=== PATIENT | male | born 1955 | race Caucasian/White ===

== ENCOUNTER → 2016-10-23 | Outpatient (CLI) | payer OTHER ==
[~2016-10-23] MED LIST: ADVIN50/60 INH; ASPCH81X PO; ATOR10TA82 PO; FLUP2.5T PO; GABA-113 PO; INSDGI SC; LINA1TAB PO; LISI-725 PO; METF-383 PO; METO25TA3 PO; NTRGSL/4 UT; NVLGI SC; PRLSR20 PO; SERT-234 PO
[2016-10-23 13:24] LABS: ALT/SGPT 27 U/L (12-78); BLOOD UREA NITROGEN 14 mg/dl (7-18); BUN/CREATININE RATIO 11.8 (10-20); CALCIUM 9.1 mg/dl (8.5-10.1); CARBON DIOXIDE 26 mmol/L (21-32); CHLORIDE 107 mmol/L (98-107); GLUCOSE 199 mg/dl (70-99); POTASSIUM 4.3 mmol/L (3.5-5.1); SODIUM 138 mmol/L (136-145)
[2016-10-23 13:34] LABS: AST/SGOT 13 U/L (15-37)
[2016-10-23 13:53] LABS: RATIO 191.7 mcg/mg (0-30.0)
[2016-10-23 14:15] LABS: ESTIMATED AVERAGE GLUCOSE 197 mg/dl; HA1C FLAG Normal (Normal)
== END | disposition home or self-care (01) ==
LOC: C.LABMFLN 09:41
PROVIDERS: ATTEND Family Medicine
DX: E11.9 Type 2 diabetes mellitus without complications (principal); E78.00 Pure hypercholesterolemia, unspecified; I10 Essential (primary) hypertension

== ENCOUNTER 2019-02-02 23:40 | Observation (INO) ==
--- OUTSIDE RECORDS SUMMARY | 2019-02-02 23:44 | External Medical Summary | Continuity of Care Document ---
:1955 Author Name Rosa Blanca Address Unavailable Unavailable , Care Team Providers Name Role Phone Dennis Blanca Unavailable [email or web address] Blanca Unavailable [email or web address] Unavailable Unavailable Destiny PRICE M.D. Unavailable Unavailable Unavailable Unavailable Unavailable Assessments Assessed Problems:URI (upper respiratory infection)Back painGallstonesCOPD (chronic obstructive pulmonary disease)Costochondritis Problems Benign essential hypertension (401.1) (I10) Diabetes mellitus (250.00) (E11.9) Depression (311) (F32.9) Acid reflux disease (530.81) (K21.9) Anxiety (300.00) (F41.9) Asthma (493.90) (J45.909) Arthritis (716.90) (M19.90) Cholecystitis (575.10) (K81.9) Hearing difficulty (389.9) (H91.90) Vision problem (V41.0) (H54.7) Illiterate (V62.3) (Z55.0) Gastroesophageal reflux disease (530.81) (K21.9) Diabetic neuropathy (250.60) (E11.40) Obesity (278.00) (E66.9) Fracture, bimalleolar, closed (824.4) (S82.843A) COPD, mild (496) (J44.9) Obstructive sleep apnea, adult (327.23) (G47.33) Spondylosis without myelopathy or radicu lopathy, 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.3) (M47.816) Reaction, depressive, manic (296.80) (F31.9) Bipolar depression (296.50) (F31.9) Hypercholesterolemia (272.0) (E78.00) Costochondritis (733.6) (M94.0) Right upper quadrant abdominal pain (789.01) (R10.11) Adenomatous colon polyp (211.3) (D12.6) COPD (chronic obstructive pulmonary disease) (496) (J44.9) Gallstones (574.20) (K80.20) Back pain (724.5) (M54.9) URI (upper respiratory infection) (465.9) (J06.9) Allergies and Adverse Reactions Levaquin TABS (Allergy) Levaquin TABS (Allergy) Medications OneTouch Ultra Blue In Vitro Strip; Test blood sugar twice d aily 100 Strip Box Quantity: 1 Refills: 1 metFORMIN HCl - 1000 MG Oral Tablet; TAKE 1 TABLET TWI CE DAILY. Evangelist Price Start: 18-Sep-2016 Quantity: 60 Refills: 2 Gabapentin 600 MG Oral Tablet; TAKE 1 TABLET 3 TIMES D AILY. Evangelist Price Start: 18-Sep-2016 Quantity: 1 90 Tablet Bottle Refills: 11 amLODIPine Besylate 10 MG Oral Tablet; Take 1 tablet daily Evangelist Novoa Start: 18-Sep-2016 Quantity: 30 Refills: 2 Ventolin HFA 108 (90 Base) MCG/ACT Inhal ation Aerosol Solution; INHALE 2 PUFFS EVERY 4-6 HOURS NEEDED. 18 GM Inhaler Quantity: 1 Refills: 5 Lisinopril 20 MG Oral Tablet; TAKE 1 TABLET DAILY. Je Price Start: 29-Sep-2016 Quantity: 1 30 Tablet Bottle Refills: 5 glipiZIDE ER 5 MG Oral Tablet Extended Release 24 Hour ; TAKE 1 TABLET DAILY. Evangelist Price Quantity: 30 Refills: 5 Diclofenac Sodium 75 MG Oral Tablet Delayed Release; Take 1 tablet twice a day Start: 01-Jan-2019 Quantity: 1 60 Tablet Bottle Refills: 2 Aspirin 325 MG Oral Tablet; TAKE 1 TABLET DAILY. Start: 07-Dec-2016 Quantity: 30 Refills: 0 NovoLOG FlexPen 100 UNIT/ML Subcutaneous Solution Pen-injector; 4 units with supper Evangelist Price Start: 06-Nov-2016 Quantity: 2 3 ML Pen (5 Pens) Refills: 2 Topiramate 25 MG Oral Tablet; TAKE 1 TABLET TWICE DAILY. Evangelist Kumar Start: 23-Oct-2016 Quantity: 60 Refills: 5 Carafate 1 GM Oral Tablet; TAKE 1 TABLET EVERY 12 HOURS CLINT Chaves Start: 01-Jan-2019 Refills: 0 Ibuprofen 600 MG Oral Tablet; TAKE 1 TABLET 3 TIMES DAILY NEEDED. Start: 28-Nov-2016 Refills: 0 DULoxetine HCl - 60 MG Oral Capsule Alisson yed Release Particles; TAKE 1 CAPSULE Daily Quantity: 30 Refills: 5 Wellbutrin SR 150 MG Oral Tablet Extende d Release 12 Hour; TAKE 1 TABLET EVERY 12 HOURS DAILY. Refills: 0 Lac-Hydrin 12 % External Cream Refills: 0 Triamcinolone Acetonide 0.5 % External C ream; APPLY TOPICALLY TO AFFECTED AREA 2 TIMES A DAY. TO AFFECTED AREA. Refills: 0 SEROquel 50 MG Oral Tablet; Take 1 tablet twice daily Refills: 2 SEROquel 100 MG Oral Tablet; Take 1 tablet twice daily Refills: 0 Metoprolol Succinate ER 50 MG Oral Table t Extended Release 24 Hour; TAKE 1 TABLET DAILY. Evangelist Price Start: 18-Sep-2016 Quantity: 1 30 Tablet Extended R elease 24 Hour Bottle Refills: 5 OneTouch UltraSoft Lancets; Test blood sugar twice daily 100 Miscellaneous Box Quantity: 1 Refills: 2 BD Pen Needle Pennie U/F 32G X 4 MM; USE DIRECTED 100 Miscellaneous Box Quantity: 1 Refills: 1 Nitroglycerin 0.4 MG Sublingual Tablet S ublingual; 1 TAB UNDER TONGUE IF NEEDED CHEST PAIN, MAY REPEAT 3 TIMES, IF PAIN PERSISTS CALL 911 Refills: 0 Lantus 100 UNIT/ML Subcutaneous Solution; 80 units sub cu b.i.d. Evangelist Price Start: 18-Sep-2016 Quantity: 2 Refills: 5 Procedures History of Complete Colonoscopy Status: Completed History of Ankle Surgery Status: Complet ed Immunizations Td On: 06-Dec-2004 Pneumovax 23 25 MCG/0.5ML Injection Injectable On: 6 Pneumovax 23 25 MCG/0.5ML Injection Injectable On: 4 Tdap (Boostrix) On: 21-Jan-2015 Hepatitis B On: 21-Jan-2015 Hepatitis B On: 24-Feb-2015 Hepatitis B On: 25-Jul-2015 Zostavax 92410 UNT/0.65ML Subcutaneous Solution Reconstitute d On: 19-Feb-2016 Pneumococcal polysaccharide vaccine, 23 valent On: 6 Fluzone INJ On: 20-Jun-2016 Family History Father Family history of myocardial infarction (V17.3) (Z82.49) Sta tus: Active Family history of myocardial infarction (V17.3) (Z82.49) Sta tus: Active Family history of cardiac disorder (V17.49) (Z82.49) Status: Active Family history of Alcohol abuse (305.00) (F10.10) Status: Ac tive Social History - Smoking Status Smoker. current status unknown Plan of Treatment Planned Observations Planned Goals not documented Results No Known Results Results not documented Encounters Appointment; Pamela Bojorquez CRNP 03-Oct-2018 13:20 Encounter Diagnosis: Problem not documented Appointment; Rachell Dorado DO 08-Apr-2017 10:00 Encounter Diagnosis: Problem not documented Appointment; Ed Kohler M.D. 02-Jan-2019 9:30 Encounter Diagnosis: Problem not documented
--- NOTE | 2019-02-02 23:55 | Emergency Department Note ---
History of Present Illness General Chief complaint: Medication Request Stated complaint: VOMITING/DIZZY Time Seen by Provider: 02/02/19 23:43 History of Present Illness This 63-year-old presents to the ER complaining of ran out of his medications requesting refill with feeling nauseous Location: Generalized Quality: Nausea Severity: Mild Duration: 6 days Timing: Patient was concerned about his blood sugar as he has not had his medications in 6 days Context: Patient was concerned as he had not had his medications in 6 days and came in Modifying factors: better with nothing; worse with nothing Patient states that this is 's responsibility to make sure he has his medications. He states he ran out and there was no medication in the mail. He was concerned tonight and he ran out of gas in his car and called EMS. Patient states he is a type II diabetic. He does not routinely take his blood sugar. He is not sure what medications he needs refilled today. Patient denies chest pain, dyspnea, fevers, cough, congestion. Patient states he has chronic back pain, unchanged. Home Medications Home Medications Medication Instructions Recorded Confirmed Type albuterol sulfate [ProAir HFA] 2 puff INHALATION Q6H PRN 10/09/18 02/03/19 History amlodipine [Norvasc] 10 mg PO DAILY 10/09/18 02/03/19 History aspirin [Aspir-Low] 2 tab PO DAILY 10/09/18 02/03/19 History atorvastatin [Lipitor] 40 mg PO DAILY 10/09/18 02/03/19 History bupropion HCl [Wellbutrin XL] 300 mg PO QAM 10/09/18 02/03/19 History diclofenac sodium 75 mg PO DAILY 10/09/18 02/03/19 History duloxetine [Cymbalta] 60 mg PO DAILY 10/09/18 02/03/19 History gabapentin [Neurontin] 600 mg PO TID 10/09/18 02/03/19 History glipizide 5 mg PO DAILY 10/09/18 02/03/19 History ibuprofen 600 mg PO TID 10/09/18 02/03/19 History lisinopril 20 mg PO DAILY 10/09/18 02/03/19 History metformin 1,000 mg PO BID 10/09/18 02/03/19 History metoprolol succinate [Toprol XL] 50 mg PO DAILY 10/09/18 02/03/19 History multivitamin 1 tab PO DAILY 10/09/18 02/03/19 History nitroglycerin 1 dose SUBLINGUAL UD PRN 10/09/18 02/03/19 History pantoprazole [Protonix] 40 mg PO DAILY 10/09/18 02/03/19 History prazosin 1 mg PO HS 10/09/18 02/03/19 History quetiapine [Seroquel] 50 mg PO QAM 10/09/18 02/03/19 History quetiapine [Seroquel] 100 mg PO HS 10/09/18 02/03/19 History sucralfate [Carafate] 1 g PO ACHS PRN 10/09/18 02/03/19 History temazepam [Restoril] 15 mg PO HS 10/09/18 02/03/19 History Anoro Ellipta 1 inh INHALATION DAILY 10/10/18 02/03/19 History Allergies Allergy/AdvReac Type Severity Reaction Status Date / Time levofloxacin [From Levaquin] Allergy Mild Rash Verified 02/03/19 01:01 Past Med/Surg History Medical History Anxiety Chronic back pain Depression Diabetes mellitus, type 2 GERD (gastroesophageal reflux disease) Hyperlipidemia Hypertension Poor historian pt lives alone; pt states he can not read or write but can sign own consents Transient ischemic attack (TIA) per record Surgical History History of cardiac cath 2012 History of colonoscopy History of open reduction and internal fixation (ORIF) procedure right ankle--hardware in place History of tooth extraction all teeth Family History Other Family history unknown Social History Preferred Language: Bermudian Communication Ability: Unable Beliefs That Will Affect Care: None Current Living Situation: Alone Feels Safe at Home: Yes Smoking Status: Current every day smoker Tobacco Type: cigarettes Cigarettes Per Day: 20 a day Second Hand Exposure: No Hx Alcohol Use: No Hx Substance Use: No Review of Systems All systems reviewed & are unremarkable except as noted in HPI & below Physical Exam Vital Signs Vital Signs - 24 hr 02/03/19 00:02 Temperature 36.6 C Temperature Source Oral Sepsis Recent Fever Within 48 Hours No Sepsis New/Unexplained Change in Mental Status No Sepsis Action Taken by Nursing No Action Required Pulse Rate 91 H Pulse Rhythm Regular Pulse Strength Normal Respiratory Rate 22 Respiratory Effort / Characteristics Non-Labored Spontaneous Respiratory Depth Normal Respiratory Pattern Regular Blood Pressure 145/99 H Blood Pressure Mean 114 Blood Pressure Position Sitting Pulse Oximetry 98 Oxygen Delivery Method Room Air VITALS: Vitals are noted on the nurse's note and reviewed by myself. Vital signs reviewed. GENERAL: White male requesting something to eat and drink, in no acute distress, nondiaphoretic, well-developed well-nourished. SKIN: The skin was without rashes, erythema, edema, or bruising. There is no tenting of the skin. Capillary reflex less than 2 seconds. HEAD: Normocephalic atraumatic. EARS: External auditory canals clear, tympanic membranes pearly mukherjee without erythema or effusion bilaterally. EYES: Pupils equal round and reactive to light and accommodation. Conjunctivae without injection, sclerae without icterus. Extraocular movements intact. NOSE: Patent, turbinates without inflammation or discharge. MOUTH: Mucous membranes moist. Pharynx without erythema or exudate. Uvula midline. Airway patent. Tongue does not deviate. NECK: Supple without nuchal rigidity. No lymphadenopathy. No thyromegaly. Cervical spine is nontender. No JVD. HEART: Regular rate and rhythm LUNGS: Clear to auscultation bilaterally without wheezes, rales or rhonchi. No retractions or accessory muscle use. ABDOMEN: Positive bowel sounds x 4. Normal tympanic percussion. Soft, nontender, without masses or organomegaly. Diaz sign negative. No guarding or rebound tenderness. No CVA tenderness MUSCULOSKELETAL: No muscle atrophy, erythema, or edema noted. NEURO: Patient was alert and oriented to person place and time. Normal sensation to light and sharp touch. No focal neurological deficits. Medical Decision Making Medical Records Attestation: I reviewed the patient's medical records. Home Medications Current Medication List: was personally reviewed by me Laboratory Data Attestation: I reviewed the patient's lab results. Result diagrams: 02/02/19 23:51 02/02/19 23:51 Lab Results 02/02/19 02/02/19 Range/Units 23:51 23:51 WBC 9.79 (4.8-10.8) K/uL RBC 4.91 (4.7-6.1) M/uL Hgb 15.8 (14.0-18.0) g/dL Hct 44.5 (42-52) % MCV 90.6 (80-100) fL MCH 32.2 (25-34) pg MCHC 35.5 (32-36) g/dL RDW Std Deviation 44.9 (36.4-46.3) fL RDW Coeff of Cesar 13.5 (11.5-14.5) % Plt Count 391 (130-400) K/uL MPV 10.6 H (7.4-10.4) fL Immature Gran % (Auto) 0.3 % Neut % (Auto) 68.8 % Lymph % (Auto) 18.8 % [place] % (Auto) 9.7 % Eos % (Auto) 1.8 % Baso % (Auto) 0.6 % Immature Gran # (Auto) 0.03 H (0.00-0.02) K/uL Neut # (Auto) 6.73 H (1.4-6.5) K/uL Lymph # (Auto) 1.84 (1.2-3.4) K/uL [place] # (Auto) 0.95 H (0.11-0.59) K/uL Eos # (Auto) 0.18 (0-0.5) K/uL Baso # (Auto) 0.06 (0-0.2) K/uL Sodium 140 (136-145) mmol/L Potassium 3.4 L (3.5-5.1) mmol/L Chloride 106 (98-107) mmol/L Carbon Dioxide 24 (21-32) mmol/L Anion Gap 10.0 (3-11) BUN 16 (7-18) mg/dl Creatinine 1.28 (0.6-1.4) mg/dl Est Cr Clr Drug Dosing 69.8 ml/min Est GFR ( Amer) 69.1 Est GFR (Non-Af Amer) 59.6 BUN/Creatinine Ratio 12.9 (10-20) Glucose 286 H (70-99) mg/dl Calcium 9.0 (8.5-10.1) mg/dl Magnesium 2.1 (1.8-2.4) mg/dl Total Bilirubin 0.8 (0.2-1) mg/dl AST 13 L (15-37) U/L ALT 23 (12-78) U/L Alkaline Phosphatase 107 (45-117) U/L Troponin I < 0.015 (0-0.045) ng/ml Total Protein 7.4 (6.4-8.2) gm/dl Albumin 3.7 (3.4-5.0) gm/dl Globulin 3.7 (2.5-4.0) gm/dl Albumin/Globulin Ratio 1.0 (0.9-2) MDM Narrative Prior records/ancillary studies reviewed and summarized above. Nursing notes reviewed. Additional history obtained from EMS. The patient's history was concerning for feeling nauseous who has been out of his medications. Differential diagnosis: Etiologies such as metabolic, infection, hypo/hyperglycemia, electrolyte abnormalities, cardiac sources, intracerebral event, toxicologic, neurologic, as well as others were entertained. Physical examination: As above. ER treatment provided: IV Lock P.o. fluids and food On reassessment the patient felt better. Diagnostics interpretation by me: EKG: Ordered for nausea and weakness in a diabetic patient ECG: Normal sinus, normal intervals, T wave inversions in the anterior lateral leads, rate of 77. EKG compared to prior EKG from 2016 with no acute changes noted. Impression normal sinus rhythm with T wave inversions anterior lateral leads unchanged from prior interpreted by myself. I think arrhythmia is unlikely. EKG shows normal sinus rhythm with no interval abnormalities such as QT prolongation or WPW. There are no findings to suggest Brugada syndrome. Cardiac monitoring in the emergency department reveals no tachycardic or bradycardic dysrhythmia. Hypertrophic cardiomyopathy was considered but there are no clear historical elements pointing toward this. EKG is not suggestive. The QRS voltage is not extremely large and there are no suggestive Q waves. The labs revealed hyperglycemia without DKA. Negative troponin Consultation: A consultation was placed with the hospitalist, Dr Cho. The case was discussed and diagnostics were reviewed. The patient was evaluated in the ER for further treatment. Med rec nurse reviewed the medications and the patient is unsure exactly what he takes. He is illiterate and is confused on his medications. Exam and history seem consistent with hyperglycemia, nausea and medication noncompliance with confusion. Patient has not seen a doctor in over a year and a half. Medicine was consulted for admission for helping manage the patient's medications and to help the patient's have his home health nurse return. Patient apparently lost his home health nurse secondary to his income from working at [employer]. Patient is agreeable treatment plan of admission. By the evaluation outlined above emergent etiologies such as infection, electrol yte abnormalities, cardiac sources, intracerebral event, toxologic, neurologic, metabolic, as well as others were deemed relatively unlikely. The pt informed about the findings as listed above. All questions were answered and pleased with the treatment. Case reviewed with my attending The chart was completed utilizing DLS Speech voice recognition software. Grammatical errors, random word insertions, pronoun errors, and incomplete sentences are an occassional consequence of this system due to software limitations, ambient noise, and hardware issues. Any formal questions or concerns about the content, text, or information contained within the body of this dictation should be directly addressed to the physician manufacturing assistant for clarification. Impression & Plan Nausea, Diabetes mellitus with hyperglycemia, Noncompliance with medication regimen Discharge Plan Visit Data Chief Complaint: Medication Request Stated Complaint: VOMITING/DIZZY ED Provider: Leyla Barclay ED Midlevel Provider: Meagan Abraham Discharge Problem: Nausea, Diabetes mellitus with hyperglycemia, Noncompliance with medication regimen Patient Disposition: Being Evaluated by Hospitalist Condition: Good Forms Stand Alone Forms: My [facility] Prescriptions Prescriptions: No Action multivitamin Tablet 1 tab PO DAILY RF: 0 atorvastatin [Lipitor] 40 mg Tablet 40 mg PO DAILY RF: 0 gabapentin [Neurontin] 600 mg Tablet 600 mg PO TID RF: 0 metoprolol succinate [Toprol XL] 50 mg Tablet Extended Release 24 Hr 50 mg PO DAILY RF: 0 prazosin 1 mg Capsule 1 mg PO HS RF: 0 sucralfate [Carafate] 1 gram Tablet 1 g PO ACHS PRN (Reason: NEEDED) RF: 0 lisinopril 20 mg Tablet 20 mg PO DAILY RF: 0 glipizide 5 mg Tablet Extended Release 24hr 5 mg PO DAILY RF: 0 aspirin [Aspir-Low] 81 mg Tablet,Delayed Release (Dr/Ec) 2 tab PO DAILY RF: 0 quetiapine [Seroquel] 100 mg Tablet 100 mg PO HS RF: 0 temazepam [Restoril] 15 mg Capsule 15 mg PO HS RF: 0 amlodipine [Norvasc] 10 mg Tablet 10 mg PO DAILY RF: 0 pantoprazole [Protonix] 40 mg Tablet,Delayed Release (Dr/Ec) 40 mg PO DAILY RF: 0 metformin 1,000 mg Tablet 1,000 mg PO BID RF: 0 nitroglycerin 0.4 mg Tablet, Sublingual 1 dose sublingual UD PRN (Reason: CHEST PAIN) RF: 0 diclofenac sodium 75 mg Tablet,Delayed Release (Dr/Ec) 75 mg PO DAILY RF: 0 ibuprofen 600 mg Tablet 600 mg PO TID RF: 0 albuterol sulfate [ProAir HFA] 90 mcg/actuation Hfa Aerosol Inhaler 2 puff INHALATION Q6H PRN (Reason: SHORT OF BREATH) RF: 0 bupropion HCl [Wellbutrin XL] 300 mg Tablet Extended Release 24 Hr 300 mg PO QAM RF: 0 duloxetine [Cymbalta] 60 mg Capsule,Delayed Release(Dr/Ec) 60 mg PO DAILY RF: 0 quetiapine [Seroquel] 50 mg Tablet 50 mg PO QAM RF: 0 Anoro Ellipta 62.5-25 mcg/actuation Blister With Device 1 inh INHALATION DAILY RF: 0 Referrals Referrals: Kalen Ribeiro MD [Primary Care Provider] -
[2019-02-03 00:03] LABS: Basophils # (auto) 0.06 K/uL (0-0.2); Basophils % (auto) 0.6 %; Eosinophils # (auto) 0.18 K/uL (0-0.5); Eosinophils % (auto) 1.8 %; Hematocrit (blood only) 44.5 % (42-52); Hemoglobin 15.8 g/dL (14.0-18.0); Immature Granulocytes # (auto) 0.03 K/uL (0.00-0.02); Immature Granulocytes % (auto) 0.3 %; Lymphocytes # (auto) 1.84 K/uL (1.2-3.4); Lymphocytes % (auto) 18.8 %; Mean Corpuscular Hgb Conc 35.5 g/dL (32-36); Mean Corpuscular Volume 90.6 fL (80-100); Mean Platelet Volume 10.6 fL (7.4-10.4); Monocytes # (auto) 0.95 K/uL (0.11-0.59); Monocytes % (auto) 9.7 %; Neutrophils # (auto) 6.73 K/uL (1.4-6.5); Neutrophils % (auto) 68.8 %; Platelet Count 391 K/uL (130-400); RDW Coefficient of Variation 13.5 % (11.5-14.5); RDW Standard Deviation 44.9 fL (36.4-46.3); Red Blood Count 4.91 M/uL (4.7-6.1); White Blood Count 9.79 K/uL (4.8-10.8)
[2019-02-03 00:20] LABS: Alanine Aminotransferase 23 U/L (12-78); Albumin Level 3.7 gm/dl (3.4-5.0); Aspartate Aminotransferase 13 U/L (15-37); BUN Creatinine Ratio 12.9 (10-20); Blood Urea Nitrogen 16 mg/dl (7-18); Carbon Dioxide 24 mmol/L (21-32); Chloride 106 mmol/L (98-107); Creatinine Clr Calc Pharmacy 69.8 ml/min; Est GFR (African American) 69.1; Est GFR (Non-African American) 59.6; Glucose 286 mg/dl (70-99); Potassium 3.4 mmol/L (3.5-5.1); Sodium 140 mmol/L (136-145)
[2019-02-03 00:24] LABS: Alkaline Phosphatase 107 U/L (45-117); Bilirubin,Total 0.8 mg/dl (0.2-1); Globulin 3.7 gm/dl (2.5-4.0); Total Protein 7.4 gm/dl (6.4-8.2); Troponin I < 0.015 ng/ml (0-0.045)
--- NOTE | 2019-02-03 00:42 | Emergency Department Note ---
ED Visit Note This is a 63-year-old male patient who presents to the emergency department with nausea and back pain. He also explains that he has run out of his medications. Patient apparently ran out of gas and asked to come to the hospital. In reviewing epic, it seems that the patient has not been in to see his doctor for over a year. He is hyperglycemic with blood sugar greater than 250. The patient has no support as he lives alone. The patient will require further work-up and evaluation to get started back on his medications and to ensure that he is taking them properly. Impression-hyperglycemia and medication noncompliance Plan-patient will be evaluated for inpatient care .
[2019-02-03 00:45] LABS: Magnesium 2.1 mg/dl (1.8-2.4)
[2019-02-03] MEDS ORDERED: QUETIAPINE FUMARATE 100 MG TABLET PO STA (01:26)
[2019-02-03] MEDS ORDERED: METOPROLOL SUCC 50MG EXT REL TAB PO STA (01:26)
--- NOTE | 2019-02-03 02:08 | History and Physical Report ---
DATE OF ADMISSION: 02/03/2019 CHIEF COMPLAINT: Medication refill. HISTORY OF PRESENT ILLNESS: This is a 63-year-old male with past medical history significant for type 2 diabetes, bipolar disorder, tobacco use disorder, history of LA, hypertension, asthma, hyperlipidemia, history of CVA, GERD, presents as he ran out of his medications about a week ago. His PCP is in [facility] in [place] and generally they call for refills, but was not called and he tried to call and he is not going to get his medications in mail until next week, so he got worried and he was not feeling well and he also ran out of gas and so he came to the hospital asking for refills. Since he is on lot of medications, the ER wanted to get the patient admitted and make sure he is on right medications before discharge. The patient says he lives alone. Nurse used to come to help him but is no longer coming and his pharmacy sends him medications in a box and with the medication timings, so he does know what kind of medications he is taking and what they are. He is no longer following with [facility]. Currently, resting comfortably and hemodynamically stable, says he is feeling itchy all over. He has some headaches today. No blurred visions. No runny nose, no sore throat, no difficulty swallowing. Appetite is okay. He is getting chronic cough with yellowish phlegm, gets short of breath before cough but right now there is no shortness of breath. There is no chest pain. He was nauseous earlier but no nausea now. No abdominal pain. Normal bowel and bladder movements. No blood in the stools. No burning micturition, no swelling in the legs, no rash. Does not ambulate very well because of some imbalance, which he attributes to his medications. Gave the phone number of the pharmacy, but could not confirm his medications as the pharmacy is closed currently. ALLERGIES: LEVAQUIN. PAST MEDICAL HISTORY: As mentioned above. PAST SURGICAL HISTORY: Right ankle surgery as per patient. MEDICATIONS: The patient seems to be on albuterol 2 puffs inhalation q. 6 hours p.r.n., amlodipine 10 mg p.o. daily, Anoro Ellipta 1 inhalation daily, aspirin 2 tablets daily, atorvastatin 40 mg daily, Wellbutrin-XL 300 mg p.o. q.a.m., diclofenac 75 mg p.o. daily, Cymbalta 60 mg p.o. daily, gabapentin 600 mg p.o. t.i.d., glipizide 5 mg p.o. daily, ibuprofen 600 mg p.o. t.i.d., lisinopril 20 mg p.o. daily, metformin 1000 mg p.o. b.i.d., Toprol-XL 50 mg p.o. daily, multivitamin 1 tablet daily, nitroglycerin 0.4mg sublingual p.r.n., Protonix 40 mg daily, prazosin 1 mg p.o. at bedtime, Seroquel 100 mg p.o. at bedtime, Seroquel 50 mg p.o. a.m., sucralfate 1 gram p.o. a.c. and at bedtime p.r.n., Restoril 50 mg p.o. at bedtime. FAMILY HISTORY: Significant for father had heart attack at age of 61. SOCIAL HISTORY: , lives alone. Smokes 1 to 1.5 pack for last 48 years. Alcohol, quit 18 years ago. No drug use. REVIEW OF SYMPTOMS: As per HPI. Rest of review of systems negative. PHYSICAL EXAMINATION: GENERAL: The patient is of moderate build, not in acute distress. VITAL SIGNS: Temperature 36.6, pulse 91, respiratory rate 22, blood pressure 145/99, and oxygen 98% room air. HEENT: No pallor, no icterus. Pupils equal, round, and reactive to light. NECK: No JVD, no neck masses, no carotid bruit. CARDIOVASCULAR: S1, S2 heard, regular rate and rhythm, no murmur, no gallop. RESPIRATORY SYSTEM: Normal AP diameter. No accessory muscle use. No wheezing, no crackles. ABDOMEN: Soft, bowel sounds present, nontender. No distention. CENTRAL NERVOUS SYSTEM: Cranial nerves II-XII grossly intact, nonfocal. EXTREMITIES: No edema, no erythema. LABS: WBC 9.7, hemoglobin 15.8, hematocrit 44.5, platelets 391. Sodium 140, potassium 3.4, chloride 106, bicarb 24, BUN 16, creatinine 1.2, serum glucose 286, calcium 9, magnesium 2.1, total bilirubin 0.8, AST 13, ALT 23, alkaline phosphatase 107. Troponin I less than 0.015. EKG: Normal sinus rhythm with rate of 77. Some ST depression in anterolateral leads. No significant change from previous EKG. ASSESSMENT AND PLAN: This is a 63-year-old male who presents with request for medication refill. 1. Diabetes. We will hold his home glipizide and metformin and place on insulin Lantus. Follow hemoglobin A1c levels, follow his blood sugars. 2. History of myocardial infarction. Continue his aspirin, Lipitor and Toprol-XL. Currently seems stable. 3. History of gastroesophageal reflux disease. Continue Protonix. 4. History of benign prostatic hypertrophy. Continue prazosin. 5. History of bipolar. Continue Seroquel, duloxetine, Wellbutrin. 6. Tobacco abuse, needs counseling. 7. Chronic obstructive pulmonary disease and asthma. Continue his home inhalers. 8. Hypertension. Continue amlodipine, lisinopril, Toprol-XL. We will monitor his blood pressure. 9. Deep venous thrombosis prophylaxis, sequential compression devices for now. 10. Disposition. Observe in med/surg tele. Level 1 full code. We will confirm his medications by calling his pharmacy at phone number [phone] tomorrow prior to discharge and monitor his blood pressure and diabetes and his HbA1c levels and lipid profile while he is in the hospital. CLAUDIA
[2019-02-03] MEDS ORDERED: SUCRALFATE 1 GM TAB PO PRN (03:35)
[2019-02-03] MEDS ORDERED: ONDANSETRON INJ 2 MG/ML 2 ML VIAL IV PRN (03:35)
[2019-02-03] MEDS ORDERED: NITROGLYCERIN SL 0.4 MG/TAB TAB SL PRN ×2 (03:35)
[2019-02-03] MEDS ORDERED: ALBUTEROL HFA 8 GM INHALER INH PRN (03:35)
[2019-02-03] MEDS ORDERED: POLYETHYLENE (MIRALAX) 17 GM PACK PO PRN (03:35)
[2019-02-03] MEDS ORDERED: CARBOHYDRATES FOR HYPOGLYCEMIA PO PRN (04:30)
[2019-02-03] MEDS ORDERED: GLUCOSE 10 TABS/TUBE PO PRN (04:30)
[2019-02-03] MEDS ORDERED: GLUCOSE 40% GEL 15 GM TUBE PO PRN (04:30)
[2019-02-03] MEDS ORDERED: GLUCAGON FOR INJ 1 MG VIAL IM PRN (04:30)
[2019-02-03] MEDS ORDERED: DEXTROSE 50% 50 ML SYRINGE IV PRN (04:30)
[2019-02-03] MEDS: INSULIN GLARGINE SOLOSTAR 100 UNITS/ML 3 ML PEN SC SCH ×3 (05:09→20:50)
[2019-02-03] MEDS: INSULIN ASPART 100 UNITS/ML 3 ML PEN SC SCH ×6 (05:12→23:46)
[2019-02-03] MEDS ORDERED: PNEUMOCOCCAL POLYSACCHARIDES 25 MCG/0.5 ML VIAL/SYR IM ONE (06:00)
[2019-02-03] MEDS ORDERED: PNEUMOCOCCAL ADMINISTRATION CHARGE ONE (06:00)
[2019-02-03 07:15] LABS: Basophils # (auto) 0.06 K/uL (0-0.2); Basophils % (auto) 0.7 %; Eosinophils # (auto) 0.19 K/uL (0-0.5); Eosinophils % (auto) 2.4 %; Hematocrit (blood only) 40.2 % (42-52); Hemoglobin 13.9 g/dL (14.0-18.0); Immature Granulocytes # (auto) 0.02 K/uL (0.00-0.02); Immature Granulocytes % (auto) 0.2 %; Lymphocytes # (auto) 2.49 K/uL (1.2-3.4); Lymphocytes % (auto) 30.9 %; Mean Corpuscular Hgb Conc 34.6 g/dL (32-36); Mean Corpuscular Volume 89.3 fL (80-100); Mean Platelet Volume 10.6 fL (7.4-10.4); Monocytes % (auto) 9.9 %; Neutrophils # (auto) 4.49 K/uL (1.4-6.5); Neutrophils % (auto) 55.9 %; Platelet Count 333 K/uL (130-400); RDW Coefficient of Variation 13.4 % (11.5-14.5); RDW Standard Deviation 43.8 fL (36.4-46.3); White Blood Count 8.05 K/uL (4.8-10.8)
[2019-02-03 07:43] LABS: BUN Creatinine Ratio 15.7 (10-20); Calcium 8.5 mg/dl (8.5-10.1); Creatinine Clr Calc Pharmacy 71.1 ml/min; Est GFR (African American) 73.2; Est GFR (Non-African American) 63.1; Magnesium 2.2 mg/dl (1.8-2.4); Potassium 3.2 mmol/L (3.5-5.1)
[2019-02-03] MEDS: ATORVASTATIN 40 MG TAB PO SCH (08:08)
[2019-02-03] MEDS: ASPIRIN 81 MG ECTAB PO SCH (08:08)
[2019-02-03] MEDS: PANTOprazole 40 MG TAB PO SCH (08:08)
[2019-02-03] MEDS: DICLOFENAC SODIUM 75 MG TABCR PO SCH (08:08)
[2019-02-03] MEDS: DULOXETINE HCL 60 MG CAP PO SCH (08:08)
[2019-02-03] MEDS: ACETAMINOPHEN 325 MG TAB PO PRN (08:08)
[2019-02-03] MEDS: MULTIVITAMIN TAB PO SCH (08:08)
[2019-02-03] MEDS: LISINOPRIL 20 MG TAB PO SCH (08:08)
[2019-02-03] MEDS: AMLODIPINE BESYLATE 5 MG TAB PO SCH (08:08)
[2019-02-03] MEDS: QUETIAPINE FUMARATE 25 MG TABLET PO SCH (08:08)
[2019-02-03] MEDS: GABAPENTIN 600 MG TAB PO SCH ×3 (08:08→20:52)
[2019-02-03] MEDS ORDERED: METOPROLOL SUCC 50MG EXT REL TAB PO SCH (09:00)
[2019-02-03] MEDS ORDERED: BuPROPion XL 300 MG TABCR PO SCH (09:00)
[2019-02-03] MEDS ORDERED: POTASSIUM CHLORIDE 20 MEQ TABCR PO ONE (09:15)
[2019-02-03 10:01] LABS: Estimated Average Glucose 240 mg/dl
[2019-02-03] MEDS ORDERED: PHARMACY GLYCEMIC MGMT CONSULT PRN (15:41)
--- NOTE | 2019-02-03 15:55 | Hospitalist Progress Note ---
Date of Service February 03, 2019 Assessment & Plan (1) Diabetes mellitus with hyperglycemia: Patient is a 63 yr male who presents with request for medication refill as he ran out of them 1 week ago DM II: Uncontrolled Hb A1C:10.0 Hold Home PO agents glipizide, metformin Previously on insulin therapy, currently not on insulin as per pharmacy Pharmacy consulted for glycemic management Monitor blood glucose levels Need to be discharged on insulin based on his requirement CAD: Continue aspirin, Lipitor, Toprol-XL Denies any chest pain Monitor for bradycardia We need to decrease the dose of metoprolol if bradycardia persists GERD: Continue Protonix BPH: Continue prazosin Bipolar Disorder: Continue Seroquel, duloxetine, Wellbutrin, Topiramate 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 DVT Px: SCDs for now Code Status Full Code Disposition: Expect to discharge home in stable Likely need home health Case management consulted Pharmacy at phone number [phone] Subjective Patient is seen and examined at bedside Very poor historian Denies any chest pain, shortness of breath, dizziness, nausea, abdominal pain, diarrhea Obtained home medication list from his PCP Offers no complaints Review of Systems Review of Systems: All systems reviewed & are unremarkable except as noted in HPI & below Physical Exam Physical Exam: Physical Exam: Vitals signs as noted above General Appearance:Moderately built and nourished, no apparent distress Head: normocephalic, Atraumatic Eyes: normal inspection, EOMI Neck: supple, Trachea midline Respiratory/Chest: Decreased breath sounds, CTA Cardiovascular: S1, S2, No murmur Abdomen/GI:Soft, Non tender, Bowel sounds present Extremities/Musculoskelatal:normal inspection, no edema Neurologic/Psych:AAOX3, grossly no focal neurological deficits Skin: normal color, warm Results & Data Vital Signs (Past 12 Hours) Vital Signs Temp Pulse Pulse Resp BP Pulse Ox 02/03/19 12:12 36.9 C 47 L 18 133/69 97 02/03/19 09:19 57 L 02/03/19 07:18 36.7 C 60 18 122/63 98 02/03/19 04:29 36.7 C 55 L 18 138/65 97 Laboratory Results Short CBC 02/02/19 02/03/19 Range/Units 23:51 06:56 WBC 9.79 8.05 (4.8-10.8) K/uL Hgb 15.8 13.9 L (14.0-18.0) g/dL Hct 44.5 40.2 L (42-52) % Plt Count 391 333 (130-400) K/uL BMP 02/02/19 02/03/19 23:51 06:56 Sodium 140 140 Potassium 3.4 L 3.2 L Chloride 106 109 H Carbon Dioxide 24 23 BUN 16 19 H Creatinine 1.28 1.22 Glucose 286 H 286 H Calcium 9.0 8.5 Cardiac Enzymes 02/02/19 Range/Units 23:51 Troponin I < 0.015 (0-0.045) ng/ml Liver Function 02/02/19 Range/Units 23:51 Total Bilirubin 0.8 (0.2-1) mg/dl AST 13 L (15-37) U/L ALT 23 (12-78) U/L Alkaline Phosphatase 107 (45-117) U/L Albumin 3.7 (3.4-5.0) gm/dl
[2019-02-03] MEDS: TOPIRAMATE 100 MG TAB PO SCH (20:53)
[2019-02-03] MEDS ORDERED: PRAZOSIN HCL 1 MG CAP PO SCH (21:00)
[2019-02-03] MEDS ORDERED: TOPIRAMATE 100 MG TAB PO SCH (21:00)
[2019-02-03] MEDS ORDERED: TEMAZEPAM 15 MG CAPSULE PO SCH (21:00)
[2019-02-03] MEDS ORDERED: QUETIAPINE FUMARATE 100 MG TABLET PO SCH ×2 (21:00)
--- NOTE | 2019-02-04 03:02 | Hospitalist Progress Note ---
Date of Service February 04, 2019 Subjective Decreasing Toprol xl to 25mg as patient having bradycardia. Results & Data Vital Signs (Past 12 Hours) Vital Signs Temp Pulse Pulse Resp BP Pulse Ox 02/04/19 02:10 46 L 02/04/19 02:04 39 L 02/03/19 23:33 36.7 C 61 18 110/55 L 98 02/03/19 19:37 36.6 C 56 L 18 176/76 H 98 02/03/19 17:00 48 L 02/03/19 16:08 36.8 C 47 L 17 155/74 H
[2019-02-04] MEDS: INSULIN ASPART 100 UNITS/ML 3 ML PEN SC SCH ×3 (03:42→12:37)
[2019-02-04] MEDS: ACETAMINOPHEN 325 MG TAB PO PRN (06:12)
[2019-02-04] MEDS: AMLODIPINE BESYLATE 5 MG TAB PO SCH (08:25)
[2019-02-04] MEDS: LISINOPRIL 20 MG TAB PO SCH (08:25)
[2019-02-04] MEDS: MULTIVITAMIN TAB PO SCH (08:25)
[2019-02-04] MEDS: PANTOprazole 40 MG TAB PO SCH (08:25)
[2019-02-04] MEDS: GABAPENTIN 600 MG TAB PO SCH ×2 (08:25→14:59)
[2019-02-04] MEDS: DICLOFENAC SODIUM 75 MG TABCR PO SCH (08:26)
[2019-02-04] MEDS: ATORVASTATIN 40 MG TAB PO SCH (08:26)
[2019-02-04] MEDS: DULOXETINE HCL 60 MG CAP PO SCH (08:27)
[2019-02-04] MEDS: ASPIRIN 81 MG ECTAB PO SCH (08:27)
[2019-02-04] MEDS: QUETIAPINE FUMARATE 25 MG TABLET PO SCH (08:27)
[2019-02-04] MEDS: TOPIRAMATE 100 MG TAB PO SCH (08:28)
[2019-02-04] MEDS: INSULIN GLARGINE SOLOSTAR 100 UNITS/ML 3 ML PEN SC SCH (08:30)
[2019-02-04 08:59] LABS: BUN Creatinine Ratio 16.2 (10-20); Calcium 8.9 mg/dl (8.5-10.1); Creatinine Clr Calc Pharmacy 81.9 ml/min; Est GFR (African American) 86.8; Est GFR (Non-African American) 74.8; Potassium 3.7 mmol/L (3.5-5.1)
[2019-02-04] MEDS ORDERED: METOPROLOL SUCC 25MG EXT REL TAB PO SCH (09:00)
[2019-02-04] MEDS ORDERED: BuPROPion XL 150 MG TABCR PO SCH (09:00)
[2019-02-04] MEDS ORDERED: LORATADINE 10 MG TAB PO SCH (09:00)
[2019-02-04] MEDS ORDERED: METFORMIN HCL 500 MG TAB PO STA (10:18)
--- NOTE | 2019-02-04 11:05 | Pharmacy Report ---
Glycemic Control Consultation - Date of Service February 04, 2019 - Scope Scope: Glycemic Pharmacist consulted by Dr Cho on 02/03/19 for glycemic control and to write orders per [facility] inpatient glycemic control protocol - Objective Weight: 94.2 kg Accuchecks BSG (last 24hrs): 02/03/19 02/03/19 02/03/19 11:32 16:36 20:23 Glucose POC Glucose 215 H 216 H 315 H* 02/03/19 02/04/19 02/04/19 23:35 03:40 07:20 Glucose POC Glucose 148 H 180 H 179 H 02/04/19 07:35 Glucose 184 H POC Glucose Laboratory Data (last 24hrs): 02/04/19 07:35 Potassium 3.7 D Carbon Dioxide 25 Anion Gap 6.0 Creatinine 1.06 Est Cr Clr Drug Dosing 81.9 HbA1c: Hemoglobin A1c 10.0 % (4.5-5.6) H 02/03/19 06:56 - Recent Pertinent Medications Outpatient Anti-diabetic Regimen: * Metformin plus Glipizide * A1c = 10 % 02/03/19 - Assessment & Plan Assessment & Plan: ASSESSMENT: * Mr. Thornton is a 63yo M unbeknownst to the pharmacy glycemic service. P/w BSGs in the 300s. PMHx consistent with: OR, HLD, CVA, HTN. Today BSGs are much improved: [phone]/dL over the previous 12 hrs. * His outpt glycemic management is poor, as evidenced by his A1C of 10%. Based on age and co morbidities he should be targeting an A1C closer to 7.5/8% PLAN FOR INPATIENT GLYCEMIC CONTROL: * Holding outpatient glipizide, continue metformin * Basal insulin * Lantus scale BID 10, 15, or 20 units based on FBS. Please see MAR for further details * Bolus insulin * NovoLog per scale ACHS or Q6hrs while NPO * Goal Range: Low 110 mg/dL - High 140 mg/dL * Correction Factor: 20 mg/dL/unit * Nutritional / Prandial insulin per carb ratio of 1 unit per 7 grams CHO consumed Outpt d/c Recommendations: * Continue Metformin: h/o of macrovascular co morbidities, would benefit from metformin's proven CV benefit * Start Lantus 15u BID, further titrations per outpt provider * D/c glipizide * Please note that the plan above was derived based on current level of insulin resistance and hospital stress. These recommendations are appropriate for inpatient admission only. Plan of care upon discharge will need to be reassessed to avoid potential outpatient hypo/hyperglycemia. Thank you.
--- NOTE | 2019-02-04 13:10 | Hospitalist Progress Note ---
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 -Patient also has been scheduled followed up with primary care doctor (Dr. Gema Garay on 02/06/19 at 8:15 AM at [facility] in [place], [place] [id number]; phone number [phone]) DM II Type 2 diabetes mellitus without rn long term care current use of insulin with hyperglycemia -Hb A1C:10.0 -in the hospital patient was started on insulin with oral glipizide and metformin held -metformin resumed on 02/04/19 -Patient is illiterate and hospitalist doctor stressed the importance of showing his primary care doctor the discharge instructions especially in regards for Diabetes mellitus control -patient may continue home dose of glipizide 5 mg daily and metformin 1000 mg BID for now -But since Patient's Hemoglobin A1c is 10 - hospitalist physician estimates that patient may need up to 15 units BID of Lantus with metformin 1000 mg BID (and stop the glipizide) -Because hospitalist doctor is concerned about patient's ability to follow directions and possible medical nonadherence, it would be best these changes can be made through regular primary care doctor follow up CAD: -Continue aspirin, Lipitor -Denies any chest pain -Patient also asked to stop home dose metoprolol because metoprolol succinate 50 mg or 25 mg appears to cause too much bradycardia with heart rates in the 40s or 50s. 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 no complaints of dizziness or lightheadedness. Had multiple discussions about medication use and follow up with primary care doctor. Patient agrees to follow up with primary care doctor as scheduled by hospitalist on Saturday02/06/19 Physical Exam Constitutional: WD/WN, vitals as above Eyes: PERRL, conjunctivae normal, anicteric sclerae EOM intact bilaterally ENMT: external ear and nose normal, oropharynx normal Neck: normal visual inspection Respiratory: normal respiratory effort, lungs clear to auscultation Cardiovascular: Rate/Rhythm: regular rhythm and + bradycardic Gastrointestinal (Abdomen): normal bowel sounds, soft, nontender, no hepatosplenomegaly Musculoskeletal: no cyanosis or clubbing, extremities motor strength 5/5 Head/Neck/Chest: normocephalic and head atraumatic Neurologic: PERRL, EOMI, accommodation nl, no face palsy, no dysarthria CN's II-XI intact bilaterally Psychiatric: Orientation: alert (sometimes pressured speech and ) Results & Data Vital Signs (Past 12 Hours) Vital Signs Temp Pulse Pulse Pulse Resp BP Pulse Ox 02/04/19 11:07 36.7 C 49 L 16 141/69 H 96 02/04/19 07:16 48 L 02/04/19 07:10 36.4 C L 43 L 20 158/77 H 98 02/04/19 04:06 36.3 C L 40 L 18 138/77 96 02/04/19 02:10 46 L 02/04/19 02:04 39 L
--- NOTE | 2019-02-04 13:49 | Discharge Summary ---
Date of Service February 04, 2019 Admission HPI Per Admitting Provider HISTORY OF PRESENT ILLNESS: This is a 63-year-old male with past medical history significant for type 2 diabetes, bipolar disorder, tobacco use disorder, history of MD, hypertension, asthma, hyperlipidemia, history of CVA, GERD, presents as he ran out of his medications about a week ago. His PCP is in [facility] in [place] and generally they call for refills, but was not called and he tried to call and he is not going to get his medications in mail until next week, so he got worried and he was not feeling well and he also ran out of gas and so he came to the hospital asking for refills. Since he is on lot of medications, the ER wanted to get the patient admitted and make sure he is on right medications before discharge. The patient says he lives alone. Nurse used to come to help him but is no longer coming and his pharmacy sends him medications in a box and with the medication timings, so he does know what kind of medications he is taking and what they are. He is no longer following with [facility]. Currently, resting comfortably and hemodynamically stable, says he is feeling itchy all over. He has some headaches today. No blurred visions. No runny nose, no sore throat, no difficulty swallowing. Appetite is okay. He is getting chronic cough with yellowish phlegm, gets short of breath before cough but right now there is no shortness of breath. There is no chest pain. He was nauseous earlier but no nausea now. No abdominal pain. Normal bowel and bladder movements. No blood in the stools. No burning micturition, no swelling in the legs, no rash. Does not ambulate very well because of some imbalance, which he attributes to his medications. Gave the phone number of the pharmacy, but could not confirm his medications as the pharmacy is closed currently. ALLERGIES: LEVAQUIN. PAST MEDICAL HISTORY: As mentioned above. PAST SURGICAL HISTORY: Right ankle surgery as per patient. MEDICATIONS: The patient seems to be on albuterol 2 puffs inhalation q. 6 hours p.r.n., amlodipine 10 mg p.o. daily, Anoro Ellipta 1 inhalation daily, aspirin 2 tablets daily, atorvastatin 40 mg daily, Wellbutrin-XL 300 mg p.o. q.a.m., diclofenac 75 mg p.o. daily, Cymbalta 60 mg p.o. daily, gabapentin 600 mg p.o. t.i.d., glipizide 5 mg p.o. daily, ibuprofen 600 mg p.o. t.i.d., lisinopril 20 mg p.o. daily, metformin 1000 mg p.o. b.i.d., Toprol-XL 50 mg p.o. daily, multivitamin 1 tablet daily, nitroglycerin 0.4mg sublingual p.r.n., Protonix 40 mg daily, prazosin 1 mg p.o. at bedtime, Seroquel 100 mg p.o. at bedtime, Seroquel 50 mg p.o. a.m., sucralfate 1 gram p.o. a.c. and at bedtime p.r.n., Restoril 50 mg p.o. at bedtime. FAMILY HISTORY: Significant for father had heart attack at age of 61. SOCIAL HISTORY: , lives alone. Smokes 1 to 1.5 pack for last 48 years. Alcohol, quit 18 years ago. No drug use. REVIEW OF SYMPTOMS: As per HPI. Rest of review of systems negative. Admission Exam Per Admitting Provider PHYSICAL EXAMINATION: GENERAL: The patient is of moderate build, not in acute distress. VITAL SIGNS: Temperature 36.6, pulse 91, respiratory rate 22, blood pressure 145/99, and oxygen 98% room air. HEENT: No pallor, no icterus. Pupils equal, round, and reactive to light. NECK: No JVD, no neck masses, no carotid bruit. CARDIOVASCULAR: S1, S2 heard, regular rate and rhythm, no murmur, no gallop. RESPIRATORY SYSTEM: Normal AP diameter. No accessory muscle use. No wheezing, no crackles. ABDOMEN: Soft, bowel sounds present, nontender. No distention. CENTRAL NERVOUS SYSTEM: Cranial nerves II-XII grossly intact, nonfocal. EXTREMITIES: No edema, no erythema Principal Diagnosis Medication Refill, Type 2 diabetes mellitus without terminal gauger current use of insulin, Bipolar Disorder, Hypertension, Bradycardia Discharge Exam Constitutional WD/WN, vitals as above Eyes PERRL, conjunctivae normal, anicteric sclerae EOM intact bilaterally ENMT external ear and nose normal, oropharynx normal Neck normal visual inspection Respiratory normal respiratory effort, lungs clear to auscultation Cardiovascular RRR, no murmur, no edema Rate/Rhythm: regular rhythm and + bradycardic Gastrointestinal (Abdomen) normal bowel sounds, soft, nontender, no hepatosplenomegaly Musculoskeletal no cyanosis or clubbing, extremities motor strength 5/5 Head/Neck/Chest: normocephalic and head atraumatic Neurologic PERRL, EOMI, accommodation nl, no face palsy, no dysarthria CN's II-XI intact bilaterally Psychiatric Orientation: alert (sometimes pressured speech and ) Discharge Data Allergies Allergy/AdvReac Type Severity Reaction Status Date / Time levofloxacin [From Levaquin] Allergy Mild Rash Verified 02/03/19 01:01 Consultations 02/03/19 01:03 ED Decision to Admit Stat 02/03/19 03:35 Consult Case Management - Discharge Planning Routine Hospital Course (1) Diabetes mellitus with hyperglycemia: Patient is a 63 yr male who presents with request for medication refill as he ran out of them 1 week ago Medication Refill -Patient came to the [facility] because he ran out of medications and concerned that his mail order pharmacy has not delivered them -Patient was placed under observation on 02/03/19 -After multiple discussions between hospitalist and casework supervisor and patient's outpatient pharmacy ([phone]) and patient's primary care clinic, patient has been confirmed to have 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 -Patient also has been scheduled followed up with primary care doctor (Dr. Gema Garay on 02/06/19 at 8:15 AM at [facility] in [place], [place]. [address] [address]; phone number [phone]) DM II Type 2 diabetes mellitus without terminal gauger current use of insulin with hyperglycemia -Hb A1C:10.0 -in the hospital patient was started on insulin with oral glipizide and metformin held -metformin resumed on 02/04/19 -Patient is illiterate and hospitalist doctor stressed the importance of showing his primary care doctor the discharge instructions especially in regards for Diabetes mellitus control -patient may continue home dose of glipizide 5 mg daily and metformin 1000 mg BID for now -But since Patient's Hemoglobin A1c is 10 - hospitalist physician estimates that patient may need up to 15 units BID of Lantus with metformin 1000 mg BID (and stop the glipizide) -Because hospitalist doctor is concerned about patient's ability to follow directions and possible medical nonadherence, it would be best these changes can be made through regular primary care doctor follow up CAD: -Continue aspirin, Lipitor -Denies any chest pain -Patient also asked to stop home dose metoprolol because metoprolol succinate 50 mg or 25 mg appears to cause too much bradycardia with heart rates in the 40s or 50s. Patient is asymptomatic -Patient should have heart rate rechecked by primary care doctor at clinic follow up Hypertension -Continue amlodipine, lisinopril Bipolar Disorder: -Continue Seroquel, duloxetine, Wellbutrin, Topiramate GERD: Continue Protonix BPH: Continue prazosin Tobacco use -[employer] to quit smoking COPD: -no Signs of exacerbation -Continue home inhalers DVT prophylaxis: ambulation Code Status Full Code Discharge Diagnosis Medication Refill, Type 2 diabetes mellitus without longterm current use of insulin, Bipolar Disorder, Hypertension, Bradycardia Total Time Total Time Spent Total Time Spent (In Minutes): 40 minutes Total Time Includes: Examination of the Patient, Discharge Planning, Medication Reconciliation and Communication With Other Providers Discharge Plan Discharge Items Patient Disposition: Home - Home Health Services Reason For Visit: MEDICATION REFILL Discharge Diagnosis: Medication Refill, Type 2 diabetes mellitus without longterm current use of insulin, Bipolar Disorder, Hypertension, Bradycardia Condition: Good Discharge Goals: Improve disease control Activity: Per 'Additional Instructions' section Non-emergency contact: Primary Care Provider Call non-emergency contact if: you have any medication questions Follow-up/Referrals: Kalen Ribeiro MD [Primary Care Provider] - None Diet: Regular and Carb Consistent or DM2 Addtl Provider Instructions: Patient came to the [facility] because he ran out of medications and concerned that his mail order pharmacy has not delivered them Patient was placed under observation on 02/03/19 After multiple discussions between hospitalist and casework supervisor and patient's outpatient pharmacy ([phone]) and patient's primary care clinic, patient has been confirmed to have 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 Patient also has been scheduled followed up with primary care doctor (Dr. Gema Garay on 02/06/19 at 8:15 AM at [facility] in [place], [place]. [address] [place] [address]; phone number [phone]) Patient is illiterate and hospitalist doctor stressed the importance of showing his primary care doctor the discharge instructions especially in regards for Diabetes mellitus control patient may continue home dose of glipizide 5 mg daily and metformin 1000 mg BID for now But since Patient's Hemoglobin A1c is 10 - hospitalist physician estimates that patient may need up to 15 units BID of Lantus with metformin 1000 mg BID (and stop the glipizide) Because hospitalist doctor is concerned about patient's ability to follow directions and possible medical nonadherence, it would be best these changes can be made through regular primary care doctor follow up Patient should continue home medications for history of Bipolar Disorder Patient also asked to stop home dose metoprolol because metoprolol succinate 50 mg or 25 mg appears to cause too much bradycardia with heart rates in the 40s or 50s. Patient is asymptomatic Patient should have heart rate rechecked by primary care doctor at clinic follow up Prescriptions: Continued multivitamin Tablet 1 tab PO DAILY RF: 0 atorvastatin [Lipitor] 40 mg Tablet 40 mg PO DAILY RF: 0 gabapentin [Neurontin] 600 mg Tablet 600 mg PO TID RF: 0 prazosin 1 mg Capsule 1 mg PO HS RF: 0 sucralfate [Carafate] 1 gram Tablet 1 g PO ACHS PRN (Reason: NEEDED) RF: 0 lisinopril 20 mg Tablet 20 mg PO DAILY RF: 0 glipizide 5 mg Tablet Extended Release 24hr 5 mg PO DAILY RF: 0 aspirin [Aspir-Low] 81 mg Tablet,Delayed Release (Dr/Ec) 2 tab PO DAILY RF: 0 quetiapine [Seroquel] 100 mg Tablet 150 mg PO HS RF: 0 temazepam [Restoril] 15 mg Capsule 15 mg PO HS RF: 0 amlodipine [Norvasc] 10 mg Tablet 10 mg PO DAILY RF: 0 pantoprazole [Protonix] 40 mg Tablet,Delayed Release (Dr/Ec) 40 mg PO DAILY RF: 0 metformin 1,000 mg Tablet 1,000 mg PO BID RF: 0 nitroglycerin 0.4 mg Tablet, Sublingual 1 dose sublingual UD PRN (Reason: CHEST PAIN) RF: 0 diclofenac sodium 75 mg Tablet,Delayed Release (Dr/Ec) 75 mg PO DAILY RF: 0 albuterol sulfate [ProAir HFA] 90 mcg/actuation Hfa Aerosol Inhaler 2 puff INHALATION Q6H PRN (Reason: SHORT OF BREATH) RF: 0 bupropion HCl [Wellbutrin XL] 300 mg Tablet Extended Release 24 Hr 150 mg PO BID RF: 0 duloxetine [Cymbalta] 60 mg Capsule,Delayed Release(Dr/Ec) 60 mg PO DAILY RF: 0 quetiapine [Seroquel] 50 mg Tablet 50 mg PO QAM RF: 0 Anoro Ellipta 62.5-25 mcg/actuation Blister With Device 1 inh INHALATION DAILY RF: 0 topiramate 100 mg Tablet 50 mg PO BID RF: 0 loratadine [Claritin] 10 mg Tablet 10 mg PO DAILY RF: 0 Discontinued metoprolol succinate [Toprol XL] 50 mg Tablet Extended Release 24 Hr 50 mg PO DAILY RF: 0 ibuprofen 600 mg Tablet 600 mg PO TID RF: 0 Stand-Alone Forms: [employer]/Other Patient Handouts: Diabetes Alf Complications, Hyperglycemia, Hypoglycemia, Diabetes Type 2 Coping, Diabetes Type 2 Oral Meds, Diabetes Healthy Meals, Diabetes Exercise Benefits, Diabetes Exercise Get Started, Diabetes Activity Tips Discharge Orders: Discharge Order (Routine); Ordered 02/04/19 Ordered By: Obed Mason Admission Data Admit Date/Time: 02/03/19 01:25 Attending Provider: Obed Mason Admit Provider: Guilherme Cho Primary Care Provider: Kalen Ribeiro Other Providers: Guilherme Cho Service: Telemetry Medical
[2019-02-04] MEDS ORDERED: METFORMIN HCL 500 MG TAB PO SCH (17:00)
== END 2019-02-04 15:21 | disposition home health service (06) ==
LOC: ED 23:40 → 2W 23:40 → SUATTDRO 02-03 01:25 → 2W 02-03 01:55

== ENCOUNTER 2020-04-11 22:19 | Inpatient (IN) ==
[2020-04-11] MEDS ORDERED: STAT IV Infusion **Titration per Protocol STA (22:31)
[2020-04-11] MEDS ORDERED: dilTIAZem HCl 5 MG/ML 5 ML VIAL IV STA (22:31)
--- NOTE | 2020-04-11 22:37 | Emergency Department Note ---
Impression & Plan Atrial fibrillation with rapid ventricular response, Acute hyperglycemia, DEMARIO (acute kidney injury), Diaphoresis ED Provider Note NAME: MADDISON PEDERSEN AGE: 64 SEX: M : 1955 ARRIVES VIA: Ambulance INFORMANT: [Patient][ems] ED PROVIDER(S): [Zack Egan MD] CHIEF COMPLAINT: Tachycardia HISTORY OF PRESENT ILLNESS: The patient is a 64-year-old male presents to the ER with about 5 hours of symptoms. The patient states that about 5 hours ago, he began feeling weak and then started to sweat. No chest pain or shortness of breath. No palpitations. The patient states that his symptoms continued to worsen so EMS was summoned. The patient was noted to be in a rapid A. fib by EMS, he was given 15 mg of IV Cardizem, 750 cc of IV saline, he feels improved. The patient has no history of heart disease, he has never had A. fib before. He was in baseline health this morning before this hit him fairly suddenly. REVIEW OF SYSTEMS: See HPI for pertinent positives and negatives. A total of ten systems were reviewed and were otherwise negative. PMHx/PSHx: See Below SOCIAL HISTORY: See Below. PHYSICAL EXAM: GENERAL: Patient is in no acute distress. HEENT: No acute trauma, normocephalic atraumatic, mucous membranes moist, no nasal congestion, no scleral icterus. NECK: No stridor, no adenopathy, no meningismus, trachea is midline. LUNGS: Clear to auscultation bilaterally, no wheeze, no rhonchi, breath sounds equal. HEART: 2/6 systolic murmur, irregular rhythm, mildly tachycardic. ABDOMEN: Soft, nontender, bowel sounds positive, no hernias, no peritonitis. EXTREMITIES: No cyanosis or edema, full range of motion of all the joints wi thout pain or difficulty, no signs for acute trauma. NEUROLOGIC: Oriented x 3, no acute motor or sensory deficits, no focal weakness. SKIN: No rash, no jaundice, mild diaphoresis. DIFFERENTIAL DIAGNOSIS: Cardiac ischemia, aortic dissection, pulmonary embolism, dysrhythmia, atrial fibrillation, atrial flutter, pneumothorax, pneumonia, pericarditis, myocarditis, esophageal rupture, GERD, cholecystitis, pancreatitis, musculoskeletal, as well as other pathologies. EMERGENCY DEPARTMENT COURSE/PROCEDURES: ECG: Indication was tachycardia. The ECG shows a rapid atrial fibrillation with a rate of 114. There is some nonspecific ST change diffusely. There are some T wave inversions laterally. No ST elevation, no PVCs. The QTc is 419. Compared to an ECG from 03 February 2019, the A. fib is new, the T wave inversions appear similar. Continuous Cardiac Monitoring: An order was placed for continuous cardiac monitoring. The monitor shows a rate of 105 with rapid atrial fibrillation. Critical Care Note: I have personally spent greater than 52 minutes of critical care time in the direct management of this patient. This includes bedside care, interpretation of diagnostic studies, and testing, discussion with consultants, patient, and family members, and other required patient management activities. This 52 minutes is in excess of all separately billable procedures. MEDICAL DECISION MAKING: There is a mild leukocytosis, this could be consistent with infection or the stress of his presentation. There is a normal hemoglobin. There is a normal platelet count. No coagulopathy. There was some mild acute kidney injury with a creatinine of 1.49. Glucose was elevated at 330. Lactic acid level was not elevated making sepsis less likely. No concerning liver enzyme elevation. The patient appeared to be in a euthyroid state. ECG shows rapid atrial fibrillation, no acute ST elevation. Cardiac enzyme testing x1 is not consistent with acute cardiac injury. Chest film shows a potential left lower infiltrate versus some atelectasis. There was no CHF. The patient was aggressively managed given his rapid A. fib and presentation. He was given a diltiazem bolus, he was placed on a diltiazem drip. He received IV ceftriaxone as empiric antibiotic coverage. He was given IV insulin for the high blood sugar. He was given IV saline. The patient's heart rate is much better controlled. He is resting comfortably. He is no longer symptomatic. The patient is in need of a hospital stay. He presents in a rapid A. fib. He is hyperglycemic and somewhat dehydrated. He may have an early pneumonia at the left lower lung. I spoke to the patient and case management. The on-call hospitalist has been consulted. Past Med/Surg History Medical History Anxiety Chronic back pain Depression Diabetes mellitus, type 2 GERD (gastroesophageal reflux disease) Hyperlipidemia Hypertension Poor historian pt lives alone; pt states he can not read or write but can sign own consents Transient ischemic attack (TIA) per record Surgical History History of cardiac cath 2012 History of colonoscopy History of open reduction and internal fixation (ORIF) procedure right ankle--hardware in place History of tooth extraction all teeth Family History Other Family history unknown Social History Smoking Status: Current every day smoker Cigarettes Per Day: 20; Second Hand Exposure: No; Hx Alcohol Use: No Hx Substance Use: No Preferred Language: Danish Communication Ability: Effective Scheduler Required: No Beliefs That Will Affect Care: None marital status: Single Current Living Situation: Homeless Other Information That Helps Us Care for You: No Feels Safe at Home: Declines to Answer Assistive Devices: Denture - Upper Allergies Allergies Allergy/AdvReac Type Severity Reaction Status Date / Time levofloxacin [From Levaquin] Allergy Mild Rash Verified 04/11/20 23:56 Home Meds Home Medications Medication Instructions Recorded Confirmed albuterol sulfate [ProAir HFA] 2 puff INHALATION Q6H PRN 10/09/18 04/11/20 amlodipine [Norvasc] 10 mg PO DAILY 10/09/18 04/11/20 atorvastatin [Lipitor] 40 mg PO DAILY 10/09/18 04/11/20 diclofenac sodium 75 mg PO DAILY 10/09/18 04/11/20 duloxetine [Cymbalta] 60 mg PO DAILY 10/09/18 04/11/20 gabapentin [Neurontin] 600 mg PO TID 10/09/18 04/11/20 lisinopril 20 mg PO DAILY 10/09/18 04/11/20 metformin 1,000 mg PO BID 10/09/18 04/11/20 multivitamin 1 tab PO DAILY 10/09/18 04/11/20 nitroglycerin 1 dose SUBLINGUAL UD PRN 10/09/18 04/11/20 pantoprazole [Protonix] 40 mg PO DAILY 10/09/18 04/11/20 prazosin 1 mg PO HS 10/09/18 04/11/20 quetiapine [Seroquel] 50 mg PO QAM 10/09/18 04/11/20 quetiapine [Seroquel] 150 mg PO HS 10/09/18 04/11/20 loratadine [Claritin] 10 mg PO DAILY 02/03/19 04/11/20 aspirin [Aspirin Low Dose] 162 mg PO DAILY 04/11/20 04/11/20 bupropion HCl 300 mg PO DAILY 04/11/20 04/11/20 empagliflozin [Jardiance] 10 mg PO DAILY 04/11/20 04/11/20 insulin glargine [Lantus Solostar 35 unit SUBCUT DAILY 04/11/20 04/11/20 U-100 Insulin] metoprolol succinate 50 mg PO DAILY 04/11/20 04/11/20 Results & Data (ED) Vital Signs Vital Signs - 24 hr 04/11/20 22:48 04/11/20 23:35 04/12/20 00:04 Temperature 36.8 C Temperature Source Oral Pulse Rate 115 H Pulse Rate [Right Finger] 108 H 105 H Pulse Rhythm Irregular Respiratory Rate 21 16 16 Respiratory Effort / Characteristics Non-Labored Respiratory Depth Normal Respiratory Pattern Regular Blood Pressure 149/69 H Blood Pressure [Right Arm] 104/76 126/86 Blood Pressure Mean 95 Blood Pressure Mean [Right Arm] 85 99 Pulse Oximetry 97 97 98 Oxygen Delivery Method Room Air Sepsis Recent Fever Within 48 Hours No Sepsis New/Unexplained Change in Mental Status N/A Sepsis Action Taken by Nursing No Action Required Home Medications Current Medication List: was personally reviewed by me Laboratory Data Attestation: I reviewed the patient's lab results. Result diagrams: 04/11/20 22:30 04/11/20 23:33 Lab Results 04/11/20 04/11/20 04/11/20 Range/Units 22:30 22:30 22:30 WBC 10.94 H (4.8-10.8) K/uL RBC 5.13 (4.7-6.1) M/uL Hgb 16.1 (14.0-18.0) g/dL Hct 47.3 (42-52) % MCV 92.2 (80-100) fL MCH 31.4 (25-34) pg MCHC 34.0 (32-36) g/dL RDW Std Deviation 47.1 H (36.4-46.3) fL RDW Coeff of Cesar 13.9 (11.5-14.5) % Plt Count 400 (130-400) K/uL MPV 10.4 (7.4-10.4) fL Immature Gran % (Auto) 0.5 % Neut % (Auto) 73.4 % Lymph % (Auto) 13.4 % [place] % (Auto) 11.2 % Eos % (Auto) 1.0 % Baso % (Auto) 0.5 % Neut # (Auto) 8.03 H (1.4-6.5) K/uL Lymph # (Auto) 1.47 (1.2-3.4) K/uL [place] # (Auto) 1.23 H (0.11-0.59) K/uL Eos # (Auto) 0.11 (0-0.5) K/uL Baso # (Auto) 0.05 (0-0.2) K/uL Immature Gran # (Auto) 0.05 H (0.00-0.02) K/uL PT 11.0 (9.0-12.0) Seconds INR 1.0 (0.9-1.1) APTT 31.7 H (21.0-31.0) Seconds PTT Ratio 1.1 Sodium 140 (136-145) mmol/L Potassium (3.5-5.1) mmol/L Chloride 105 (98-107) mmol/L Carbon Dioxide 23 (21-32) mmol/L Anion Gap 12.0 H (3-11) BUN 19 H (7-18) mg/dl Creatinine 1.49 H (0.6-1.4) mg/dl Est Cr Clr Drug Dosing 56.7 ml/min Est GFR ( Amer) 57.1 Est GFR (Non-Af Amer) 49.2 BUN/Creatinine Ratio 12.5 (10-20) Glucose 330 H* (70-99) mg/dl Lactate (0.4-2.0) mmol/L Calcium 9.1 (8.5-10.1) mg/dl Magnesium (1.8-2.4) mg/dl Magnesium (Sulf Ther) (4.0-8.0) mg/dL Total Bilirubin 0.8 (0.2-1) mg/dl AST (15-37) U/L ALT 24 (12-78) U/L Alkaline Phosphatase 129 H (45-117) U/L Troponin I 0.038 (0-0.045) ng/ml Total Protein 7.0 (6.4-8.2) gm/dl Albumin 3.6 (3.4-5.0) gm/dl Globulin 3.4 (2.5-4.0) gm/dl Albumin/Globulin Ratio 1.1 (0.9-2) Beta-Hydroxybutyric Acd (0.2-2.81) mg/dl TSH 2.530 (0.300-4.500) uIu/ml 04/11/20 04/11/20 Range/Units 23:06 23:33 WBC (4.8-10.8) K/uL RBC (4.7-6.1) M/uL Hgb (14.0-18.0) g/dL Hct (42-52) % MCV (80-100) fL MCH (25-34) pg MCHC (32-36) g/dL RDW Std Deviation (36.4-46.3) fL RDW Coeff of Cesar (11.5-14.5) % Plt Count (130-400) K/uL MPV (7.4-10.4) fL Immature Gran % (Auto) % Neut % (Auto) % Lymph % (Auto) % [place] % (Auto) % Eos % (Auto) % Baso % (Auto) % Neut # (Auto) (1.4-6.5) K/uL Lymph # (Auto) (1.2-3.4) K/uL [place] # (Auto) (0.11-0.59) K/uL Eos # (Auto) (0-0.5) K/uL Baso # (Auto) (0-0.2) K/uL Immature Gran # (Auto) (0.00-0.02) K/uL PT (9.0-12.0) Seconds INR (0.9-1.1) APTT (21.0-31.0) Seconds PTT Ratio Sodium (136-145) mmol/L Potassium 3.5 (3.5-5.1) mmol/L Chloride (98-107) mmol/L Carbon Dioxide (21-32) mmol/L Anion Gap (3-11) BUN (7-18) mg/dl Creatinine (0.6-1.4) mg/dl Est Cr Clr Drug Dosing ml/min Est GFR ( Amer) Est GFR (Non-Af Amer) BUN/Creatinine Ratio (10-20) Glucose (70-99) mg/dl Lactate 1.4 (0.4-2.0) mmol/L Calcium (8.5-10.1) mg/dl Magnesium 2.4 (1.8-2.4) mg/dl Magnesium (Sulf Ther) (4.0-8.0) mg/dL Total Bilirubin (0.2-1) mg/dl AST 17 (15-37) U/L ALT (12-78) U/L Alkaline Phosphatase (45-117) U/L Troponin I (0-0.045) ng/ml Total Protein (6.4-8.2) gm/dl Albumin (3.4-5.0) gm/dl Globulin (2.5-4.0) gm/dl Albumin/Globulin Ratio (0.9-2) Beta-Hydroxybutyric Acd 30.69 H (0.2-2.81) mg/dl TSH (0.300-4.500) uIu/ml Administered Medications Magnesium Sulfate/Dextrose (Magnesium Sulfate / D5w) 1 gm in 100 mls @ 50 mls/hr IV NOW STA Stop: 04/12/20 02:16 Last Admin: 04/12/20 00:55 Dose: 50 mls/hr Documented by: [id number] Potassium Chloride 40 meq/ (Sodium Chloride) 1,020 mls @ 150 mls/hr IV .[id number] ONE Stop: 04/12/20 07:15 Last Admin: 04/12/20 00:57 Dose: 150 mls/hr Documented by: [id number] Heparin Sodium/Dextrose (Heparin Sodium/Dextrose) 25,000 units in 500 mls @ 28 mls/hr IV .[id number] [facility]; Protocol Stop: 05/12/20 00:29 Last Admin: 04/12/20 00:56 Dose: 1,400 units/hr, 28 mls/hr Documented by: [id number] Cosigned by: [id number] Discontinued Medications Diltiazem HCl (Diltiazem Hcl 5 Mg/Ml 5 Ml Vial) 10 mg IV NOW STA Stop: 04/11/20 22:32 Last Admin: 04/11/20 22:44 Dose: 10 mg Documented by: [id number] Cosigned by: [id number] Diltiazem HCl 125 mg/ Dextrose 125 mls @ 10 mls/hr IV .[id number] [facility]; Protocol Stop: 05/11/20 22:44 Last Titration: 04/12/20 00:00 Dose: 10 mg/hr, 10 mls/hr Documented by: [id number] Cosigned by: [id number] Admin: 04/11/20 23:05 Dose: 5 mg/hr, 5 mls/hr Documented by: [id number] Cosigned by: [id number] Sodium Chloride (Nss) 500 mls @ 999 mls/hr IV .Q31M ADELA Stop: 04/11/20 23:15 Last Infusion: 04/11/20 23:24 Dose: 0 mls/hr Documented by: [id number] Admin: 04/11/20 22:44 Dose: 999 mls/hr Documented by: [id number] Ceftriaxone Sodium (Rocephin) 2,000 mg in 70 mls @ 140 mls/hr IV NOW STA Stop: 04/11/20 23:24 Last Infusion: 04/12/20 00:04 Dose: 0 mls/hr Documented by: [id number] Admin: 04/11/20 23:34 Dose: 140 mls/hr Documented by: [id number] Insulin Human Regular (Novolin-R Insulin Per Unit Charge) 8 units IV NOW STA Stop: 04/11/20 23:28 Last Admin: 04/12/20 00:00 Dose: 8 units Documented by: [id number] Cosigned by: [id number] Metoprolol Succinate (Metoprolol Succ 50mg Ext Rel Tab) 50 mg PO NOW STA Stop: 04/12/20 00:00 Last Admin: 04/12/20 00:55 Dose: 50 mg Documented by: [id number] Miscellaneous (Stat Iv Infusion Titration Per Protocol) 1 ea N/A NOW STA Stop: 04/11/20 22:32 Last Admin: 04/11/20 23:06 Dose: 1 ea Documented by: [id number] Potassium Chloride (Potassium Chloride 10 Meq Tabcr) 50 meq PO NOW STA Stop: 04/12/20 00:08 Last Admin: 04/12/20 00:55 Dose: 50 meq Documented by: [id number] Imaging Data Attestation: I personally reviewed and interpreted this imaging study as follows: My Impression: Chest film: There is no CHF or pneumothorax. There is a left lower lobe infiltrate/atelectasis per my reading. Blood Pressure Blood Pressure Findings: Elevated blood pressure Blood Pressure Disposition: further management by hospitalist Discharge Plan Visit Data Chief Complaint: Tachycardia Stated Complaint: TACHYCARDIA ED Provider: Zack Egan Discharge Problem: Atrial fibrillation with rapid ventricular response, Acute hyperglycemia, DEMARIO (acute kidney injury), Diaphoresis Patient Disposition: Admitted As Inpatient Condition: Fair Discharge Instructions Interventions: ED Discharge Assessment Last Done: 04/12/20 01:11
[2020-04-11 22:40] LABS: Basophils # (auto) 0.05 K/uL (0-0.2); Basophils % (auto) 0.5 %; Eosinophils # (auto) 0.11 K/uL (0-0.5); Hematocrit (blood only) 47.3 % (42-52); Hemoglobin 16.1 g/dL (14.0-18.0); Immature Granulocytes # (auto) 0.05 K/uL (0.00-0.02); Immature Granulocytes % (auto) 0.5 %; Lymphocytes # (auto) 1.47 K/uL (1.2-3.4); Lymphocytes % (auto) 13.4 %; Mean Corpuscular Hemoglobin 31.4 pg (25-34); Mean Corpuscular Volume 92.2 fL (80-100); Mean Platelet Volume 10.4 fL (7.4-10.4); Monocytes # (auto) 1.23 K/uL (0.11-0.59); Monocytes % (auto) 11.2 %; Neutrophils # (auto) 8.03 K/uL (1.4-6.5); Neutrophils % (auto) 73.4 %; Platelet Count 400 K/uL (130-400); RDW Coefficient of Variation 13.9 % (11.5-14.5); RDW Standard Deviation 47.1 fL (36.4-46.3); Red Blood Count 5.13 M/uL (4.7-6.1); White Blood Count 10.94 K/uL (4.8-10.8)
[2020-04-11] MEDS ORDERED: SODIUM CHLORIDE 0.9% 500 ML IV SCH (22:45)
[2020-04-11] MEDS ORDERED: dilTIAZem HCL 125 MG in DEXTROSE 5% 100 ML IV SCH (22:45)
[2020-04-11 22:53] LABS: Partial Thromboplastin Ratio 1.1; Partial Thromboplastin Time 31.7 Seconds (21.0-31.0)
[2020-04-11] MEDS ORDERED: cefTRIAXone SODIUM 2,000 MG/70 ML BAG IV STA (22:55)
[2020-04-11 23:24] LABS: Albumin Level 3.6 gm/dl (3.4-5.0); BUN Creatinine Ratio 12.5 (10-20); Calcium 9.1 mg/dl (8.5-10.1); Creatinine Clr Calc Pharmacy 56.7 ml/min; Est GFR (African American) 57.1; Est GFR (Non-African American) 49.2
[2020-04-11] MEDS ORDERED: NovoLIN-R INSULIN PER UNIT CHARGE IV STA (23:27)
[2020-04-11 23:35] LABS: Albumin Globulin Ratio 1.1 (0.9-2); Bilirubin,Total 0.8 mg/dl (0.2-1); Globulin 3.4 gm/dl (2.5-4.0); Thyroid Stimulating Hormone 2.53 uIu/ml (0.300-4.500); Troponin I 0.038 ng/ml (0-0.045)
[2020-04-11 23:57] LABS: Potassium 3.5 mmol/L (3.5-5.1)
[2020-04-11] MEDS ORDERED: METOPROLOL SUCC 50MG EXT REL TAB PO STA (23:59)
[2020-04-12 00:07] LABS: Beta-Hydroxybutyrate 30.69 mg/dl (0.2-2.81)
[2020-04-12] MEDS ORDERED: POTASSIUM CHLORIDE 10 MEQ TABCR PO STA (00:07)
[2020-04-12 00:08] LABS: Magnesium 2.4 mg/dl (1.8-2.4)
[2020-04-12] MEDS ORDERED: MAGNESIUM SULFATE / D5W 1 GM/100 ML BAG IV STA (00:17)
--- NOTE | 2020-04-12 00:26 | History & Physical Report ---
Date of Service April 12, 2020 Assessment & Plan (1) Atrial fibrillation with rapid ventricular response: New onset Likely secondary to clinical dehydration from mild DKA Missed home medications ARF secondary to mild DKA hx nonobstructive CAD as per records hx CVA hypertension, stable hyperlipidemia on statin Rx DM 2 insulin requiring, suboptimal control as of recent hemoglobin A1c of 9.20 March 2020 mood disorder, at baseline bronchial asthma, stable Homelessness ongoing tobacco abuse PCU Facilitate home beta-yeison, wean off Cardizem drip Basal Lantus, ISS BG goal [id number], carb count coverage TTE, Cardiology consult RE new onset A. fib IV Heparin for thromboembolic prophylaxis with [id number] score at least 2 and above Baseline UA, monitor creatinine response to IVF Hold EL inhibitor until creatinine back to baseline PT OT eval Social service RE discharge planning Nicotine patch PRN DVT prophylaxis with IV heparin Full code Text document was generated using stylefruits recognition software. It may contain grammatical or spelling errors. Kindly contact undersigned for clarification of any documentation item in question. History of Present Illness Chief Complaint: Weakness Primary Care Provider: Dr. Santos History obtained from patient and records. Medical history significant for nonobstructive CAD, CVA, hypertension, hyperlipidemia, DM 2 insulin requiring, mood disorder, bronchial asthma, ongoing tobacco abuse. Last confinement January 2019 for hyperglycemia, having ran out of of prescription medicine. Patient noted increasing generalized weakness and sweatiness the last few days especially when he tried to go over a roof. No chest pain, no S OB, no palpitations. No cough, no fever, no chills. Denies flulike symptoms. No headache symptoms. Ran out his medication packets about 4 days ago. Noted to be in rapid A. fib by EMS. Given 1 dose of IV Cardizem. Patient brought to the ER for evaluation. Patient stating that he is sleepy because he is tired. CR 110s, BSG noted to be 330s upon arrival at the ER. IV insulin 1 dose and Cardizem drip initiated at the ER. Medical History as above Ongoing preparation for elective ankle surgery outpatient. Surgical History : Ankle surgery Family History : Heart disease Personal/Social history : 1 pack daily, no EtOH intake, disabled, homeless and currently residing at a [facility] Allergies Allergy/AdvReac Type Severity Reaction Status Date / Time levofloxacin [From Levaquin] Allergy Mild Rash Verified 04/11/20 23:56 Home Medications Home Medications Medication Instructions Recorded Confirmed Type albuterol sulfate [ProAir HFA] 2 puff INHALATION Q6H PRN 10/09/18 04/11/20 History amlodipine [Norvasc] 10 mg PO DAILY 10/09/18 04/11/20 History atorvastatin [Lipitor] 40 mg PO DAILY 10/09/18 04/11/20 History diclofenac sodium 75 mg PO DAILY 10/09/18 04/11/20 History duloxetine [Cymbalta] 60 mg PO DAILY 10/09/18 04/11/20 History gabapentin [Neurontin] 600 mg PO TID 10/09/18 04/11/20 History lisinopril 20 mg PO DAILY 10/09/18 04/11/20 History metformin 1,000 mg PO BID 10/09/18 04/11/20 History multivitamin 1 tab PO DAILY 10/09/18 04/11/20 History nitroglycerin 1 dose SUBLINGUAL UD PRN 10/09/18 04/11/20 History pantoprazole [Protonix] 40 mg PO DAILY 10/09/18 04/11/20 History prazosin 1 mg PO HS 10/09/18 04/11/20 History quetiapine [Seroquel] 50 mg PO QAM 10/09/18 04/11/20 History quetiapine [Seroquel] 150 mg PO HS 10/09/18 04/11/20 History loratadine [Claritin] 10 mg PO DAILY 02/03/19 04/11/20 History aspirin [Aspirin Low Dose] 162 mg PO DAILY 04/11/20 04/11/20 History bupropion HCl 300 mg PO DAILY 04/11/20 04/11/20 History empagliflozin [Jardiance] 10 mg PO DAILY 04/11/20 04/11/20 History insulin glargine [Lantus Solostar 35 unit SUBCUT DAILY 04/11/20 04/11/20 History U-100 Insulin] metoprolol succinate 50 mg PO DAILY 04/11/20 04/11/20 History Past Med/Surg History Medical History Anxiety Chronic back pain Depression Diabetes mellitus, type 2 GERD (gastroesophageal reflux disease) Hyperlipidemia Hypertension Poor historian pt lives alone; pt states he can not read or write but can sign own consents Transient ischemic attack (TIA) per record Surgical History History of cardiac cath 2011 History of colonoscopy History of open reduction and internal fixation (ORIF) procedure right ankle--hardware in place History of tooth extraction all teeth Family History Other Family history unknown Social History Smoking Status: Current every day smoker Cigarettes Per Day: 20; Second Hand Exposure: No; Hx Alcohol Use: No Hx Substance Use: No Preferred Language: Wolof Communication Ability: Effective Horologist Apprentice Required: No Beliefs That Will Affect Care: None marital status: Single Current Living Situation: Homeless Other Information That Helps Us Care for You: No Feels Safe at Home: Declines to Answer Assistive Devices: Denture - Upper and Denture - Lower Review of Systems Review of Systems: As per HPI, all 10 systems reviewed, all other ROS negative Physical Exam Physical Exam: GENERAL: Comfortable, sleepy, slightly irate, obese, dysarthric (chronic) no respiratory distress SKIN: Normal color, warm HEENT: Partial alopecia, pink palpebral conjunctivae, no ptosis, dry buccal mucosa NECK : Supple, no tenderness CHEST : CTA, no tenderness HEART : Irregular, ? Apical systolic murmur ABDOMEN: Some distention, nontender EXTREMITIES : No LE swelling/tenderness, no other conspicuous deformities noted NEUROLOGIC : Coherent, ? Lip symmetry, dysarthric, gait and stance not assessed Results & Data Results & Data ([facility]) Vital Signs (Past 12 Hours) Vital Signs Temp Pulse Pulse Resp BP BP Pulse Ox 04/12/20 00:04 105 H 16 126/86 98 04/11/20 23:35 108 H 16 104/76 97 04/11/20 22:48 36.8 C 115 H 21 149/69 H 97 Laboratory Results Laboratory Results WBC 10.94 K/uL (4.8-10.8) H 04/11/20 22:30 RBC 5.13 M/uL (4.7-6.1) 04/11/20 22:30 Hgb 16.1 g/dL (14.0-18.0) 04/11/20 22:30 Hct 47.3 % (42-52) 04/11/20 22:30 MCV 92.2 fL (80-100) 04/11/20 22: MCH 31.4 pg (25-34) 04/11/20 22: MCHC 34.0 g/dL (32-36) 04/11/20 22:30 RDW Std Deviation 47.1 fL (36.4-46.3) H 04/11/20: RDW Coeff of Cesar 13.9 % (11.5-14.5) 04/11/20: Plt Count 400 K/uL (130-400) 04/11/20: MPV 10.4 fL (7.4-10.4) 04/11/20: Immature Gran % (Auto) 0.5 % 04/11/20:30 Neut % (Auto) 73.4 % 04/11/20 22:30 Lymph % (Auto) 13.4 % 04/11/20 22: [place] % (Auto) 11.2 % 04/11/20 22:30 Eos % (Auto) 1.0 % 04/11/20 22:30 Baso % (Auto) 0.5 % 04/11/20 22:30 Neut # (Auto) 8.03 K/uL (1.4-6.5) H 04/11/20 22:30 Lymph # (Auto) 1.47 K/uL (1.2-3.4) 04/11/20 22:30 [place] # (Auto) 1.23 K/uL (0.11-0.59) H 04/11/20 22:30 Eos # (Auto) 0.11 K/uL (0-0.5) 04/11/20 22:30 Baso # (Auto) 0.05 K/uL (0-0.2) 04/11/20:30 Immature Gran # (Auto) 0.05 K/uL (0.00-0.02) H 04/11/20 22:30 PT 11.0 Seconds (9.0-12.0) 04/11/20 22:30 INR 1.0 (0.9-1.1) 04/11/20 22:30 APTT 31.7 Seconds (21.0-31.0) H 04/11/20 22:30 PTT Ratio 1.1 04/11/20 22:30 Sodium 140 mmol/L (136-145) 04/11/20 22:30 Potassium 3.5 mmol/L (3.5-5.1) 04/11/20 23:33 Chloride 105 mmol/L (98-107) 04/11/20 22:30 Carbon Dioxide 23 mmol/L (21-32) 04/11/20 22:30 Anion Gap 12.0 (3-11) H 04/11/20 22:30 BUN 19 mg/dl (7-18) H 04/11/20 22:30 Creatinine 1.49 mg/dl (0.6-1.4) H 04/11/20 22:30 Est Cr Clr Drug Dosing 56.7 ml/min 04/11/20 22:30 Est GFR ( Amer) 57.1 04/11/20 22:30 Est GFR (Non-Af Amer) 49.2 04/11/20 22:30 BUN/Creatinine Ratio 12.5 (10-20) 04/11/20 22:30 Glucose 330 mg/dl (70-99) H* 04/11/20 22:30 Lactate 1.4 mmol/L (0.4-2.0) 04/11/20 23:06 Calcium 9.1 mg/dl (8.5-10.1) 04/11/20 22:30 Magnesium 2.4 mg/dl (1.8-2.4) 04/11/20 23:33 Magnesium (Sulf Ther) mg/dL (4.0-8.0) 04/11/20 22:30 Total Bilirubin 0.8 mg/dl (0.2-1) 04/11/20 22:30 AST 17 U/L (15-37) 04/11/20 23:33 ALT 24 U/L (12-78) 04/11/20 22:30 Alkaline Phosphatase 129 U/L (45-117) H 04/11/20 22:30 Troponin I 0.038 ng/ml (0-0.045) 04/11/20 22:30 Total Protein 7.0 gm/dl (6.4-8.2) 04/11/20 22:30 Albumin 3.6 gm/dl (3.4-5.0) 04/11/20 22:30 Globulin 3.4 gm/dl (2.5-4.0) 04/11/20 22:30 Albumin/Globulin Ratio 1.1 (0.9-2) 04/11/20 22:30 Beta-Hydroxybutyric Acd 30.69 mg/dl (0.2-2.81) H 04/11/20 23:33 TSH 2.530 uIu/ml (0.300-4.500) 04/11/20 22:30 Diagnostic Findings Chest x-ray as per my interpretation atelectasis, elevated right hemidiaphragm, cardiomegaly EKG as per my interpretation : Rate 115, atrial fibrillation, normal axis, T wave inversion lateral leads
[2020-04-12] MEDS ORDERED: INSULIN GLARGINE SOLOSTAR 100 UNITS/ML 3 ML PEN SC STA (00:28)
[2020-04-12] MEDS ORDERED: POTASSIUM CHLORIDE 40 MEQ in SODIUM CHLORIDE 0.9% 1000ML 1,000 ML IV ONE (00:28)
[2020-04-12] MEDS ORDERED: Heparin IV Standard *NO* Bolus STA (00:29)
[2020-04-12] MEDS ORDERED: HEPARIN SODIUM/DEXTROSE 25,000 UNITS/500 ML BAG IV SCH (00:30)
[2020-04-12] MEDS ORDERED: dilTIAZem HCL 125 MG in DEXTROSE 5% 100 ML IV SCH (00:45)
[2020-04-12] MEDS ORDERED: PROMETHAZINE HCL 12.5 MG in SODIUM CHLORIDE 0.9% 50 ML IV PRN (01:29)
[2020-04-12] MEDS ORDERED: GLUCAGON FOR INJ 1 MG VIAL SQ PRN (01:29)
[2020-04-12] MEDS ORDERED: CARBOHYDRATES FOR HYPOGLYCEMIA PO PRN (01:29)
[2020-04-12] MEDS ORDERED: NITROGLYCERIN SL 0.4 MG/TAB TAB SL PRN (01:29)
[2020-04-12] MEDS ORDERED: GLUCOSE 40% GEL 15 GM TUBE PO PRN (01:29)
[2020-04-12] MEDS ORDERED: ACETAMINOPHEN 325 MG TAB PO PRN (01:29)
[2020-04-12] MEDS ORDERED: TRAMADOL HCL 50 MG TABLET PO PRN (01:29)
[2020-04-12] MEDS ORDERED: DEXTROSE 50% 50 ML SYRINGE IV PRN (01:29)
[2020-04-12] MEDS ORDERED: GLUCOSE 10 TABS/TUBE PO PRN (01:29)
[2020-04-12] MEDS: INSULIN ASPART 100 UNITS/ML 3 ML PEN SC SCH ×4 (02:51→12:43)
[2020-04-12 05:41] LABS: Basophils # (auto) 0.04 K/uL (0-0.2); Basophils % (auto) 0.4 %; Eosinophils # (auto) 0.13 K/uL (0-0.5); Eosinophils % (auto) 1.4 %; Hematocrit (blood only) 44.2 % (42-52); Hemoglobin 14.6 g/dL (14.0-18.0); Immature Granulocytes # (auto) 0.04 K/uL (0.00-0.02); Immature Granulocytes % (auto) 0.4 %; Lymphocytes # (auto) 2.39 K/uL (1.2-3.4); Lymphocytes % (auto) 26.1 %; Mean Corpuscular Hemoglobin 30.6 pg (25-34); Mean Corpuscular Volume 92.7 fL (80-100); Mean Platelet Volume 10.2 fL (7.4-10.4); Monocytes # (auto) 1.09 K/uL (0.11-0.59); Monocytes % (auto) 11.9 %; Neutrophils # (auto) 5.48 K/uL (1.4-6.5); Neutrophils % (auto) 59.8 %; Platelet Count 386 K/uL (130-400); RDW Standard Deviation 47.4 fL (36.4-46.3); Red Blood Count 4.77 M/uL (4.7-6.1); White Blood Count 9.17 K/uL (4.8-10.8)
[2020-04-12 06:42] LABS: BUN Creatinine Ratio 15.6 (10-20); Creatinine Clr Calc Pharmacy 68.6 ml/min; Est GFR (African American) 69.9; Est GFR (Non-African American) 60.3; Potassium 4.3 mmol/L (3.5-5.1); Troponin I 0.119 ng/ml (0-0.045)
[2020-04-12] MEDS ORDERED: LACTATED RINGER'S 1,000 ML IV ONE (07:15)
[2020-04-12 07:23] LABS: Partial Thromboplastin Ratio 1.5; Partial Thromboplastin Time 42.1 Seconds (21.0-31.0)
--- NOTE | 2020-04-12 07:30 | XRay Report ---
XR chest 1V portable CLINICAL HISTORY: Chest Pain COMPARISON STUDY: Chest radiograph September 26, 2015. Chest CT April 13, 2012. FINDINGS: Lung volumes are normal. There is no pneumothorax or pleural effusion. No evidence for pulm onary edema. Mild cardiomegaly is noted. There is mild left basilar opacity. No pneumothorax or pleur al effusion is noted. IMPRESSION: Mild left basilar opacity. Atelectasis is favored although an infectious process could a ppear similar. ACT 112: Negative or not required by law. Electronically signed by: Dewey Tovar M.D. 04/12/2020 7:29 AM
[2020-04-12] MEDS ORDERED: HEPARIN IV BOLUS 3,000 UNITS in SYRINGE 0 ML IV ONE (07:45)
[2020-04-12] MEDS: GABAPENTIN 400 MG CAP PO SCH ×2 (08:04→12:45)
[2020-04-12] MEDS ORDERED: PANTOprazole 40 MG TAB PO SCH (09:00)
[2020-04-12] MEDS ORDERED: LORATADINE 10 MG TAB PO SCH (09:00)
[2020-04-12] MEDS ORDERED: MULTIVITAMIN TAB PO SCH (09:00)
[2020-04-12] MEDS ORDERED: ASPIRIN 81 MG ECTAB PO SCH (09:00)
[2020-04-12] MEDS ORDERED: BuPROPion XL 300 MG TABCR PO SCH (09:00)
[2020-04-12] MEDS ORDERED: AMLODIPINE BESYLATE 5 MG TAB PO SCH (09:00)
[2020-04-12] MEDS ORDERED: QUETIAPINE FUMARATE 25 MG TABLET PO SCH ×2 (09:00→21:00)
[2020-04-12] MEDS ORDERED: INSULIN GLARGINE SOLOSTAR 100 UNITS/ML 3 ML PEN SC SCH ×2 (09:00→21:00)
[2020-04-12] MEDS ORDERED: ATORVASTATIN 40 MG TAB PO SCH (09:00)
[2020-04-12 11:08] LABS: Appearance Urine Clear (Clear); Bacteria Urine Automated Negative (Negative); Bilirubin Urine Negative (Negative); Blood Urine Negative (Negative); Color Urine Yellow; Epithelial Cell Urine Auto 0-5 /lpf (0-5); Glucose Urine UA 3+ (Negative); Ketones Urine Trace (Negative); Leukocyte Esterase Urine Negative (Negative); Nitrite Urine Negative (Negative); Protein Urine 1+ (Negative); RBC Urine Automated 0-4 /hpf (0-4); Specific Gravity Urine 1.036 (1.000-1.030); Urobilinogen Urine Negative (Negative); pH Urine 6.5 (4.5-7.5)
[2020-04-12 11:33] LABS: Amphetamines+Metham, Urine Neg (Neg); Barbiturates, Urine Neg (Neg); Benzodiazepine, Urine Neg (Neg); Cocaine, Urine Neg (Neg); MDMA (Ecstacy), Urine Neg (Neg); Methadone, Urine Neg (Neg); Opiate, Urine Neg (Neg); Phencyclidine, Urine Neg (Neg)
[2020-04-12] MEDS ORDERED: PHARMACY GLYCEMIC MGMT CONSULT PRN (12:42)
--- NOTE | 2020-04-12 12:53 | Cardiology Consultation ---
Date of Consultation April 12, 2020 Assessment & Plan (1) Atrial fibrillation with rapid ventricular response: (2) Acute hyperglycemia: (3) DEMARIO (acute kidney injury): (4) Diaphoresis: (5) Noncompliance with medication regimen: (6) HTN (hypertension): (7) Hx of cardiac cath: (8) Homeless single person: The pathophysiology and treatment options for atrial fibrillation were discussed with Mr. Thornton at great length today. He was counseled that I prefer to anticoagulate him for least 30 days to prevent a CVA. Obviously his current living and financial situation will make this rather difficult but we should reach out to our pharmacy and social work colleagues to see if we can get him a 3-month supply of Eliquis. Consideration should also be given to establish with [facility] clinic if he is a candidate. No other cardiac agents will be added at this time. Okay to DC from a cardiac standpoint once his medication needs have been addressed. History of Present Illness Reason for Consultation: Symptomatic atrial fibrillation with rapid ventricular response Requesting Physician: Dr. Jones Attending Physician: Lefty Davey MD History of Present Illness Mr. Thornton is a very pleasant 64-year-old, unfortunately homeless, male who presented to the emergency department on 04/11/2020 with complaints of significant shortness of breath. He states that for the several days preceding arrival he was noticing significant fatigue, diaphoresis and shortness of breath particularly when climbing over a week. He is not able to afford his medications on his own and ran out several days ago. Upon arrival he was found to be in mild DKA with significant volume depletion along with a new finding of atrial fibrillation with rapid ventricular response. He converted to normal sinus rhythm spontaneously after receiving a bolus of Cardizem and his remained in sinus rhythm/sinus bradycardia overnight. He states that his shortness of breath has resolved is now feeling much better. Allergies Allergy/AdvReac Type Severity Reaction Status Date / Time levofloxacin [From Levaquin] Allergy Mild Rash Verified 04/11/20 23:56 Home Medications Home Medications Medication Instructions Recorded Confirmed Type albuterol sulfate [ProAir HFA] 2 puff INHALATION Q6H PRN 10/09/18 04/11/20 History amlodipine [Norvasc] 10 mg PO DAILY 10/09/18 04/11/20 History atorvastatin [Lipitor] 40 mg PO DAILY 10/09/18 04/11/20 History diclofenac sodium 75 mg PO DAILY 10/09/18 04/11/20 History duloxetine [Cymbalta] 60 mg PO DAILY 10/09/18 04/11/20 History gabapentin [Neurontin] 600 mg PO TID 10/09/18 04/11/20 History lisinopril 20 mg PO DAILY 10/09/18 04/11/20 History metformin 1,000 mg PO BID 10/09/18 04/11/20 History multivitamin 1 tab PO DAILY 10/09/18 04/11/20 History nitroglycerin 1 dose SUBLINGUAL UD PRN 10/09/18 04/11/20 History pantoprazole [Protonix] 40 mg PO DAILY 10/09/18 04/11/20 History prazosin 1 mg PO HS 10/09/18 04/11/20 History quetiapine [Seroquel] 50 mg PO QAM 10/09/18 04/11/20 History quetiapine [Seroquel] 150 mg PO HS 10/09/18 04/11/20 History loratadine [Claritin] 10 mg PO DAILY 02/03/19 04/11/20 History aspirin [Aspirin Low Dose] 162 mg PO DAILY 04/11/20 04/11/20 History bupropion HCl 300 mg PO DAILY 04/11/20 04/11/20 History empagliflozin [Jardiance] 10 mg PO DAILY 04/11/20 04/11/20 History insulin glargine [Lantus Solostar 35 unit SUBCUT DAILY 04/11/20 04/11/20 History U-100 Insulin] metoprolol succinate 50 mg PO DAILY 04/11/20 04/11/20 History Patient History Medical History Anxiety Chronic back pain Depression Diabetes mellitus, type 2 GERD (gastroesophageal reflux disease) Hyperlipidemia Hypertension Poor historian pt lives alone; pt states he can not read or write but can sign own consents Transient ischemic attack (TIA) per record Surgical History History of cardiac cath 2012 History of colonoscopy History of open reduction and internal fixation (ORIF) procedure right ankle--hardware in place History of tooth extraction all teeth Family History Other Family history unknown Social History Smoking Status: Current every day smoker Cigarettes Per Day: 20; Second Hand Exposure: No; Hx Alcohol Use: No Hx Substance Use: No Preferred Language: Japanese Communication Ability: Effective Mine Expert Required: No Beliefs That Will Affect Care: None marital status: Single Current Living Situation: Homeless Other Information That Helps Us Care for You: No Feels Safe at Home: Declines to Answer Assistive Devices: Denture - Upper and Denture - Lower Review of Systems Review of Systems: All systems reviewed & are unremarkable except as noted in HPI & below Physical Exam Physical Exam: General: Awake, alert and oriented x 3. No acute distress. HEENT: Normocephalic, atraumatic. Pupils equal, round and reactive to light and accommodation. Extraocular muscles are intact. Anicteric sclera. Moist mucous membranes. Neck: No JVD. No bruit. Cardiovascular: Regular. Positive S-4. Normal S-1 and S-2. No S-3. 3/6 holosystolic ejection murmur, left sternal border, mid-clavicular line with radiation to the axilla. No rubs. Pulmonary: Clear to auscultation bilaterally. No rales, rhonchi, or wheezing. Abdomen: Bowel sounds x 4, soft. No rebound, guarding or tenderness. No organomegaly. Extremities: No clubbing, cyanosis or edema. +2 pedal pulses bilaterally. Skin: Warm and dry. Results & Data ([facility]) Vital Signs (Past 12 Hours) Vital Signs Temp Pulse Pulse Resp BP Pulse Ox 04/12/20 10:52 36.5 C 65 20 138/73 98 04/12/20 07:44 36.7 C 70 20 134/75 99 04/12/20 07:31 59 L 04/12/20 04:25 36.6 C 63 20 134/64 96 04/12/20 01:30 36.5 C 90 16 129/65 100
[2020-04-12 13:15] LABS: Beta-Hydroxybutyrate 0.83 mg/dl (0.2-2.81); Troponin I 0.1 ng/ml (0-0.045)
--- NOTE | 2020-04-12 15:41 | Pharmacy Report ---
Pharmacy Glycemic Short Note 2 - Date of Service April 12, 2020 - Glycemic Short BSG Results (Last 24 hours): 04/11/20 04/12/20 04/12/20 22:30 01:15 02:50 Glucose 330 H* POC Glucose 318 H* 282 H 04/12/20 04/12/20 04/12/20 05:19 07:29 11:27 Glucose 260 H POC Glucose 227 H 239 H OUTPATIENT ANTIDIABETIC REGIMEN: * Lantus 35 units daily * Jardiance 10mg PO daily * Metformin 1000mg BID * A1C: pending (10% form 01/2019) ASSESSMENT: * Patient with for new onset A fib RVR now on a heparin infusion. Patient is tolerating a diet. * Patient received 20 units @0248 this morning and 15 units @ 0800. Given last home dose administration time unknown, will scale lantus for this evening and monitor blood sugar trend * NovoLog Goal range was changed from 140-180 to 110-140 and CF/CR tightened PLAN FOR INPATIENT GLYCEMIC CONTROL: * Hold outpatient oral diabetes medications * Basal insulin * Lantus 35 units total this morning units SQ * Lantus Per scale this evening (10, 15 or 20 units SQ based on BSG) * Bolus insulin * NovoLog per scale ACHS or Q6hrs while NPO * Goal Range: Low 110 mg/dL - High 140 mg/dL * Correction Factor: 25 mg/dL/unit * Nutritional / Prandial insulin per carb ratio of 1 unit per 8 grams CHO consumed
--- NOTE | 2020-04-12 20:23 | Hospitalist Progress Note ---
Date of Service April 12, 2020 Assessment & Plan (1) Atrial fibrillation with rapid ventricular response: New onset of afib with RVR with HR 115 on admission Possible related to dehydration Troponin on admission 0.038, then peak to 0.119, now trending down 0.100 received IV Cardizem in the ER Converted back to NSR around midnight Cardiology on board On IV heparin drip Echo showed no segmental left ventricular wall motion abnormalities. Normal LV systolic function, with ejection fraction 55 to 60%. Pt does not want to stay in the hospital He said that his dog does not want to eat or drink I told him that cardiology is adjusting his medications to avoid him to go back to afib that put him at risk of stroke and clot I also told him that his BS is elevated and need to be control I explained to him by leaving the hospital, he is at risk of stroke, cardiac arrhythmia, and diabetic complications that can lead to heart attack and Pt understood the risk and signed AMA Diabetes type 2 Hyperglycemia elevated Beta-Hydroxyureate 30.6, now normalized Pharmacy was consulted for glycemic management Pt does not want to stay in the hospital, signed AMA Offered pt to give him script for his diabetes meds, but he said that he has medications and does not want any refill Elevated troponin Related to afib Troponin on admission 0.038, then peak to 0.119, now trending down 0.100 Denies any chest pain On heparin drip due to afib Continue aspirin, statin and metoprolol Pt signed AMA Acute Renal failure related to dehydration Creatinine on admission 1.49 received IVF Creatinine 1.2 today DVT px on heparin drip Disposition Signed AMA Admission and Anticipated Discharge Date Admission Date: April 12, 2020 Subjective Pt was seen and examined Lying in bed with no distress Pt said that he feels ok He does not want to stay for another night in the hospital Nurse called few hours later because patient wanted to leave I went back to talk to him He said he would leave because his dog does not want to drink and eat I explained him that he is getting IV medication such as antibiotic and heparin drip I told him that cardiology is adjusting his medications to avoid him to go back to afib that put him at risk of stroke and clot I also told him that his BS is elevated and need to be control I explained to him by leaving the hospital, he is at risk of stroke, cardiac arrhythmia, and diabetic complications that can lead to heart attack and Pt understood the risk and signed AMA Physical Exam Physical Exam: General- No acute distress Head- atraumatic Eyes- PERRL, EOMI, ENT- oropharynx clear Neck- supple, no JVD Lungs- clear to auscultation Heart- regular rhythm; + murmur Abdomen- normal bowel sounds, soft, nontender Extremities- no calf tenderness Neuro- alert, oriented x 3; PERRL, EOMI; no facial palsy; no dysarthria Skin- warm & dry Results & Data Results & Data ([facility]) Vital Signs (Past 12 Hours) Vital Signs Temp Pulse Resp BP Pulse Ox 04/12/20 15:21 36.5 C 65 20 138/73 98 04/12/20 10:52 36.5 C 65 20 138/73 98
[2020-04-12] MEDS ORDERED: PRAZOSIN HCL 1 MG CAP PO SCH (21:00)
--- NOTE | 2020-04-12 22:36 | Electrocardiogram Report ---
Test Reason : Blood Pressure : / mmHG Vent. Rate : 114 BPM Atrial Rate : 119 BPM P-R Int : 000 ms QRS Dur : 080 ms QT Int : 304 ms P-R-T Axes : 000 003 130 degrees QTc Int : 419 ms Atrial fibrillation with rapid ventricular response Possible Inferior infarct , age undetermined Abnormal ECG When compared with ECG of 03-FEB-2019 00:11, Atrial fibrillation has replaced Sinus rhythm Borderline criteria for Inferior infarct are now Present T wave inversion no longer evident in Anterior leads Confirmed by Guy Vasques ([id number]) on 04/12/2020 10:36:12 PM Referred By: REFERRED SELF Confirmed By:Guy Vasques
--- NOTE | 2020-04-12 22:40 | Electrocardiogram Report ---
Test Reason : Blood Pressure : / mmHG Vent. Rate : 090 BPM Atrial Rate : 090 BPM P-R Int : 198 ms QRS Dur : 076 ms QT Int : 342 ms P-R-T Axes : 040 -06 113 degrees QTc Int : 418 ms Normal sinus rhythm Possible Left atrial enlargement Possible Inferior infarct (cited on or before 11-APR-2020) Abnormal ECG When compared with ECG of 11-APR-2020 22:25, Sinus rhythm has replaced Atrial fibrillation Confirmed by Guy Vasques ([id number]) on 04/12/2020 10:39:43 PM Referred By: REFERRED SELF Confirmed By:Guy Vasques
[2020-04-13] MEDS ORDERED: METOPROLOL SUCC 50MG EXT REL TAB PO SCH (09:00)
--- NOTE | 2020-04-15 00:59 | Discharge Summary ---
Date of Service April 12, 2020 Admission HPI Per Admitting Provider History obtained from patient and records. Medical history significant for nonobstructive CAD, CVA, hypertension, hyperlipidemia, DM 2 insulin requiring, mood disorder, bronchial asthma, ongoing tobacco abuse. Last confinement January 2019 for hyperglycemia, having ran out of of prescription medicine. Patient noted increasing generalized weakness and sweatiness the last few days especially when he tried to go over a roof. No chest pain, no S OB, no palpitations. No cough, no fever, no chills. Denies flulike symptoms. No headache symptoms. Ran out his medication packets about 4 days ago. Noted to be in rapid A. fib by EMS. Given 1 dose of IV Cardizem. Patient brought to the ER for evaluation. Patient stating that he is sleepy because he is tired. CR 110s, BSG noted to be 330s upon arrival at the ER. IV insulin 1 dose and Cardizem drip initiated at the ER. Medical History as above Ongoing preparation for elective ankle surgery outpatient. Surgical History : Ankle surgery Family History : Heart disease Personal/Social history : 1 pack daily, no EtOH intake, disabled, homeless and currently residing at a [facility] Admission Exam Per Admitting Provider GENERAL: Comfortable, sleepy, slightly irate, obese, dysarthric (chronic) no respiratory distress SKIN: Normal color, warm HEENT: Partial alopecia, pink palpebral conjunctivae, no ptosis, dry buccal mucosa NECK : Supple, no tenderness CHEST : CTA, no tenderness HEART : Irregular, ? Apical systolic murmur ABDOMEN: Some distention, nontender EXTREMITIES : No LE swelling/tenderness, no other conspicuous deformities noted NEUROLOGIC : Coherent, ? Lip symmetry, dysarthric, gait and stance not assessed Principal Diagnosis (1) Atrial fibrillation with rapid ventricular response: (2) Acute hyperglycemia: (3) DEMARIO (acute kidney injury): (4) Diaphoresis: (5) Noncompliance with medication regimen: (6) HTN (hypertension): Discharge Exam General- No acute distress Head- atraumatic Eyes- PERRL, EOMI, ENT- oropharynx clear Neck- supple, no JVD Lungs- clear to auscultation Heart- regular rhythm; + murmur Abdomen- normal bowel sounds, soft, nontender Extremities- no calf tenderness Neuro- alert, oriented x 3; PERRL, EOMI; no facial palsy; no dysarthria Skin- warm & dry Discharge Data Allergies Allergy/AdvReac Type Severity Reaction Status Date / Time levofloxacin [From Levaquin] Allergy Mild Rash Verified 04/11/20 23:56 Consultations 04/11/20 23:47 ED Decision to Admit Stat 04/12/20 01:29 Consult Cardiology Routine Consult Case Management - Discharge Planning Routine Ordered Studies XR chest 1V portable CLINICAL HISTORY: Chest Pain COMPARISON STUDY: Chest radiograph September 26, 2015. Chest CT April 13, 2012. FINDINGS: Lung volumes are normal. There is no pneumothorax or pleural effusion. No evidence for pulmonary edema. Mild cardiomegaly is noted. There is mild left basilar opacity. No pneumothorax or pleural effusion is noted. IMPRESSION: Mild left basilar opacity. Atelectasis is favored although an infectious process could appear similar. ACT 112: Negative or not required by law. Electronically signed by: Dewey Tovar M.D. 04/12/2020 7:29 AM Dictated: 04/12/20727 Transcribed: 04/12/20727 Hospital Course (1) Atrial fibrillation with rapid ventricular response: New onset of afib with RVR with HR 115 on admission Possible related to dehydration Troponin on admission 0.038, then peak to 0.119, now trending down 0.100 received IV Cardizem in the ER Converted back to NSR around midnight Cardiology on board On IV heparin drip Echo showed no segmental left ventricular wall motion abnormalities. Normal LV systolic function, with ejection fraction 55 to 60%. Pt does not want to stay in the hospital He said that his dog does not want to eat or drink I told him that cardiology is adjusting his medications to avoid him to go back to afib that put him at risk of stroke and clot I also told him that his BS is elevated and need to be control I explained to him by leaving the hospital, he is at risk of stroke, cardiac arrhythmia, and diabetic complications that can lead to heart attack and Pt understood the risk and signed AMA Diabetes type 2 Hyperglycemia elevated Beta-Hydroxyureate 30.6, now normalized Pharmacy was consulted for glycemic management Pt does not want to stay in the hospital, signed AMA Offered pt to give him script for his diabetes meds, but he said that he has medications and does not want any refill Elevated troponin Related to afib Troponin on admission 0.038, then peak to 0.119, now trending down 0.100 Denies any chest pain On heparin drip due to afib Continue aspirin, statin and metoprolol Pt signed AMA Acute Renal failure related to dehydration Creatinine on admission 1.49 received IVF Creatinine 1.2 today DVT px on heparin drip Disposition Signed AMA Total Time Total Time Spent Total Time Spent (In Minutes): 35 minutes Total Time Includes: Examination of the Patient, Discharge Planning, Medication Reconciliation, Communication With Other Providers and Other Discharge Plan Discharge Items Patient Disposition: Against Medical Advice Reason For Visit: AFIB Discharge Diagnosis: (1) Atrial fibrillation with rapid ventricular response: (2) Acute hyperglycemia: (3) DEMARIO (acute kidney injury): (4) Diaphoresis: (5) Noncompliance with medication regimen: (6) HTN (hypertension): Condition on Discharge: Fair Activity: As commented below Non-emergency contact: Primary Care Provider Call non-emergency contact if: you have any medication questions Follow-up/Referrals: PCP,NO [Primary Care Provider] - Diet: Carb Consistent or DM2 Addtl Attending Provider Instructions: left Against medical advice Pending Studies at Discharge: No Stand-Alone Forms: [employer], Smoking Cessation Medications and DC Order Prescriptions: Continued multivitamin Tablet 1 tab PO DAILY RF: 0 atorvastatin [Lipitor] 40 mg Tablet 40 mg PO DAILY RF: 0 gabapentin [Neurontin] 600 mg Tablet 600 mg PO TID RF: 0 prazosin 1 mg Capsule 1 mg PO HS RF: 0 lisinopril 20 mg Tablet 20 mg PO DAILY RF: 0 quetiapine [Seroquel] 100 mg Tablet 150 mg PO HS RF: 0 amlodipine [Norvasc] 10 mg Tablet 10 mg PO DAILY RF: 0 pantoprazole [Protonix] 40 mg Tablet,Delayed Release (Dr/Ec) 40 mg PO DAILY RF: 0 metformin 1,000 mg Tablet 1,000 mg PO BID RF: 0 nitroglycerin 0.4 mg Tablet, Sublingual 1 dose sublingual UD PRN (Reason: CHEST PAIN) RF: 0 diclofenac sodium 75 mg Tablet,Delayed Release (Dr/Ec) 75 mg PO DAILY RF: 0 albuterol sulfate [ProAir HFA] 90 mcg/actuation Hfa Aerosol Inhaler 2 puff INHALATION Q6H PRN (Reason: SHORT OF BREATH) RF: 0 duloxetine [Cymbalta] 60 mg Capsule,Delayed Release(Dr/Ec) 60 mg PO DAILY RF: 0 quetiapine [Seroquel] 50 mg Tablet 50 mg PO QAM RF: 0 loratadine [Claritin] 10 mg Tablet 10 mg PO DAILY RF: 0 bupropion HCl 300 mg tablet extended release 24 hr 300 mg PO DAILY RF: 0 Jardiance 10 mg tablet 10 mg PO DAILY RF: 0 metoprolol succinate 50 mg tablet extended release 24 hr 50 mg PO DAILY RF: 0 aspirin [Aspirin Low Dose] 81 mg Tablet,Delayed Release (Dr/Ec) 162 mg PO DAILY RF: 0 Lantus Solostar U-100 Insulin 100 unit/mL (3 mL) insulin pen 35 unit SUBCUT DAILY RF: 0 Discharge Orders: Left Against Medical Advice (Routine); Ordered 04/12/20 Ordered By: Lefty Davey Admission Data Admit Date/Time: 04/12/20 00:33 Attending Provider: Lefty Davey Admit Provider: Rip Sigala Primary Care Provider: PCP,NO Other Providers: Rip Sigala ; Maximus Seo ; Reji Cho ; Jm Ba ; Marcus Aguilar ; Jonathan Pollard ; Mark Turner ; Jeniffer Rios ; Matilda Rutledge ; Leo Hercules Other Interventions: Discharge Summary Assessment (RN) Last Done: 04/12/20 15:21
== END 2020-04-12 13:35 | disposition left against medical advice (07) | DRG 308 ==
LOC: ED 22:19 → 2E 04-12 00:33 → SUATTDRO 04-12 00:33 → 2E 04-12 01:11

== ENCOUNTER 2020-05-22 14:21 | Inpatient (IN) ==
[2020-05-22] MEDS ORDERED: STAT IV Infusion **Titration per Protocol STA (14:28)
[2020-05-22] MEDS ORDERED: ASPIRIN CHEW 324 MG PO STA (14:28)
[2020-05-22] MEDS ORDERED: dilTIAZem HCL 125 MG in DEXTROSE 5% 100 ML IV STA (14:28)
[2020-05-22] MEDS ORDERED: dilTIAZem HCl 5 MG/ML 5 ML VIAL IV STA (14:28)
[2020-05-22] MEDS ORDERED: dilTIAZem HCl 5 MG/ML 5 ML VIAL IV ONE (14:29)
--- NOTE | 2020-05-22 14:33 | Emergency Department Note ---
History of Present Illness General Chief complaint: Chest Pain Stated complaint: cp/afib Time Seen by Provider: 05/22/20 14:23 Source: patient and EMS History of Present Illness Provider complaint: Chest pain Onset (ago): hour(s) Location: chest and left Radiation: non-radiation Pain Consistency: + constant Current Pain Intensity: 9 Quality: + aching Relieved By: + none Exacerbated By: + none Associated symptoms: + shortness of breath; no cough, no fever/chills and no nausea/vomiting This is a 64-year-old male with a history of atrial fibrillation presenting with chest pain starting 2 hours prior to arrival. The patient describes it as an ache on the left side of his chest without radiation. He rates it a 9 out of 10 in severity. It is associated with shortness of breath. No modifying factors. He was noted by EMS to be tachycardic with a heart rate in the 150s. I did provide medical command for the patient and he was given 10 mg of Cardizem IV as well as 500 cc of normal saline IV. His heart rate did not appear to improve per EMS. The patient continues having chest pain on the left side. He does state that he has not had his medications for about 4 days and has not taken any medications. He does not know if he is on a blood thinner. He denies any fever, cough or cold symptoms, abdominal pain, vomiting or diarrhea, leg swelli ng or pain, urinary symptoms or any known exposure to COVID-19 Home Medications Home Medications Medication Instructions Recorded Confirmed Type amlodipine [Norvasc] 10 mg PO DAILY 10/09/18 05/22/20 History atorvastatin [Lipitor] 40 mg PO DAILY 10/09/18 05/22/20 History diclofenac sodium 75 mg PO BID 10/09/18 05/22/20 History duloxetine [Cymbalta] 60 mg PO DAILY 10/09/18 05/22/20 History gabapentin [Neurontin] 600 mg PO TID 10/09/18 05/22/20 History lisinopril 20 mg PO DAILY 10/09/18 05/22/20 History metformin 1,000 mg PO BID 10/09/18 05/22/20 History multivitamin 1 tab PO DAILY 10/09/18 05/22/20 History nitroglycerin 1 dose SUBLINGUAL UD PRN 10/09/18 05/22/20 History pantoprazole [Protonix] 40 mg PO DAILY 10/09/18 05/22/20 History prazosin 1 mg PO HS 10/09/18 05/22/20 History quetiapine [Seroquel] 150 mg PO HS 10/09/18 05/22/20 History aspirin [Aspirin Low Dose] 162 mg PO DAILY 04/11/20 05/22/20 History bupropion HCl 300 mg PO DAILY 04/11/20 05/22/20 History empagliflozin [Jardiance] 10 mg PO DAILY 04/11/20 05/22/20 History metoprolol succinate 50 mg PO DAILY 04/11/20 05/22/20 History Advair Diskus 1 puff PO BID 05/22/20 05/22/20 History baclofen 10 mg PO BID 05/22/20 05/22/20 History nortriptyline 10 mg PO HS 05/22/20 05/22/20 History sodium chloride [Saline Mist] 2 spray INTRANASAL QID PRN 05/22/20 05/22/20 History temazepam 15 mg PO HS 05/22/20 05/22/20 History Allergies Allergy/AdvReac Type Severity Reaction Status Date / Time levofloxacin [From Levaquin] Allergy Mild Rash Verified 05/22/20 17:22 Past Med/Surg History Medical History (Updated 05/22/20 @ 16:52 by Marcus Macias MD) Acute hyperglycemia DEMARIO (acute kidney injury) Anxiety Atrial fibrillation with rapid ventricular response Chronic back pain Depression Diabetes mellitus, type 2 Diaphoresis GERD (gastroesophageal reflux disease) Hyperlipidemia Hypertension Noncompliance with medication regimen Poor historian pt lives alone; pt states he can not read or write but can sign own consents Transient ischemic attack (TIA) per record Surgical History History of cardiac cath 2012 History of colonoscopy History of open reduction and internal fixation (ORIF) procedure right ankle--hardware in place History of tooth extraction all teeth Family History Other Family history unknown Social History Smoking Status: Current every day smoker Tobacco Type: Cigarettes Cigarettes Per Day: 20; Second Hand Exposure: No; Hx Alcohol Use: No Hx Substance Use: No Preferred Language: Hungarian Communication Ability: Effective [employer] Required: No Beliefs That Will Affect Care: None marital status: Single Current Living Situation: Homeless Feels Safe at Home: Yes Assistive Devices: Denture - Upper and Denture - Lower Review of Systems See HPI for pertinent positives & negatives. and A total of 10 systems reviewed and were otherwise negative Physical Exam Vital Signs Vital Signs - 24 hr 05/22/20 14:25 05/22/20 14:26 05/22/20 14:29 Temperature 36.7 C Temperature Source Oral Pulse Rate 135 H 136 H 125 H Pulse Rate from SpO2 Sensor 121 H 130 H Respiratory Rate 18 23 29 H Respiratory Effort / Characteristics Non-Labored Spontaneous Respiratory Depth Normal Blood Pressure 133/106 H 146/90 H Blood Pressure Mean 115 95 Blood Pressure Position Sitting Pulse Oximetry 96 99 99 Oxygen Delivery Method Room Air Sepsis Recent Fever Within 48 Hours No Sepsis New/Unexplained Change in Mental Status N/A Sepsis Action Taken by Nursing No Action Required 05/22/20 14:40 05/22/20 14:46 05/22/20 15:00 Temperature Temperature Source Pulse Rate 124 H 113 H 137 H Pulse Rate from SpO2 Sensor 124 H 118 H 147 H Respiratory Rate 24 26 H 32 H Respiratory Effort / Characteristics Respiratory Depth Blood Pressure 133/106 H Blood Pressure Mean 119 Blood Pressure Position Pulse Oximetry 97 97 97 Oxygen Delivery Method Sepsis Recent Fever Within 48 Hours Sepsis New/Unexplained Change in Mental Status Sepsis Action Taken by Nursing 05/22/20 15:01 05/22/20 15:20 05/22/20 15:40 Temperature Temperature Source Pulse Rate 128 H 125 H Pulse Rate from SpO2 Sensor 122 H 128 H Respiratory Rate 26 H 30 H Respiratory Effort / Characteristics Respiratory Depth Blood Pressure Blood Pressure Mean Blood Pressure Position Pulse Oximetry 97 97 96 Oxygen Delivery Method Room Air Sepsis Recent Fever Within 48 Hours Sepsis New/Unexplained Change in Mental Status Sepsis Action Taken by Nursing 05/22/20 15:47 05/22/20 16:00 05/22/20 16:01 Temperature Temperature Source Pulse Rate 142 H 149 H 132 H Pulse Rate from SpO2 Sensor 136 H Respiratory Rate 36 H 23 30 H Respiratory Effort / Characteristics Respiratory Depth Blood Pressure 110/67 98/77 L Blood Pressure Mean 76 82 Blood Pressure Position Pulse Oximetry 98 Oxygen Delivery Method Sepsis Recent Fever Within 48 Hours Sepsis New/Unexplained Change in Mental Status Sepsis Action Taken by Nursing 05/22/20 16:20 05/22/20 16:30 05/22/20 16:52 Temperature Temperature Source Pulse Rate 98 H 99 H 100 H Pulse Rate from SpO2 Sensor Respiratory Rate 22 28 H 28 H Respiratory Effort / Characteristics Respiratory Depth Blood Pressure 127/80 Blood Pressure Mean 91 Blood Pressure Position Pulse Oximetry Oxygen Delivery Method Sepsis Recent Fever Within 48 Hours Sepsis New/Unexplained Change in Mental Status Sepsis Action Taken by Nursing 05/22/20 17:00 05/22/20 17:10 05/22/20 17:20 Temperature Temperature Source Pulse Rate 87 85 83 Pulse Rate from SpO2 Sensor Respiratory Rate 18 17 21 Respiratory Effort / Characteristics Respiratory Depth Blood Pressure 137/78 Blood Pressure Mean 102 Blood Pressure Position Pulse Oximetry Oxygen Delivery Method Sepsis Recent Fever Within 48 Hours Sepsis New/Unexplained Change in Mental Status Sepsis Action Taken by Nursing 05/22/20 17:30 05/22/20 17:40 05/22/20 17:50 Temperature Temperature Source Pulse Rate 87 96 H 96 H Pulse Rate from SpO2 Sensor Respiratory Rate 18 22 25 H Respiratory Effort / Characteristics Respiratory Depth Blood Pressure 119/75 Blood Pressure Mean 93 Blood Pressure Position Pulse Oximetry Oxygen Delivery Method Sepsis Recent Fever Within 48 Hours Sepsis New/Unexplained Change in Mental Status Sepsis Action Taken by Nursing 05/22/20 18:00 05/22/20 18:10 Temperature Temperature Source Pulse Rate 88 87 Pulse Rate from SpO2 Sensor Respiratory Rate 18 18 Respiratory Effort / Characteristics Respiratory Depth Blood Pressure 130/86 Blood Pressure Mean 100 Blood Pressure Position Pulse Oximetry Oxygen Delivery Method Sepsis Recent Fever Within 48 Hours Sepsis New/Unexplained Change in Mental Status Sepsis Action Taken by Nursing Constitutional: Vital signs reviewed. Eyes: Pupils are equal round reactive to light. Conjunctiva are noninjected. ENT: Pharynx is clear without erythema or exudate. Mucous membranes are moist. Neck supple without meningeal signs. Respiratory: Clear to auscultation bilaterally. Breath sounds are equal bilaterally. Cardiovascular: Irregularly irregular rhythm. Tachycardic with a heart rate of 124. GI: Soft, nondistended and nontender. Bowel sounds are present. Musculoskeletal: No peripheral edema. No lower extremity tenderness. Integumentary: No cyanosis. or jaundice. Neurological: The patient is awake and alert. No focal deficits. Psychiatric: Normal affect. Not anxious appearing. Course Administered Medications Discontinued Medications Aspirin (Aspirin Chew 324 Mg) 324 mg PO NOW STA Stop: 05/22/20 14:29 Last Admin: 05/22/20 14:32 Dose: 324 mg Documented by: [id number] Diltiazem HCl (Diltiazem Hcl 5 Mg/Ml 5 Ml Vial) 10 mg IV NOW STA Stop: 05/22/20 14:29 Last Admin: 05/22/20 14:31 Dose: 10 mg Documented by: [id number] Cosigned by: [id number] Diltiazem HCl (Diltiazem Hcl 5 Mg/Ml 5 Ml Vial) Confirm Administered Dose 25 mg IV .STK-MED ONE Stop: 05/22/20 14:30 Last Admin: 05/22/20 15:32 Dose: Not Given Documented by: [id number] Fentanyl Citrate (Fentanyl Citrate 100 Mcg/2 Ml Vial) 50 mcg IV NOW STA Stop: 05/22/20 14:49 Last Admin: 05/22/20 15:20 Dose: 50 mcg Documented by: [id number] Diltiazem HCl 125 mg/ Dextrose 125 mls @ 5 mls/hr IV .Q24H STA; Protocol Stop: 05/23/20 14:27 Last Titration: 05/22/20 15:58 Dose: 10 mg/hr, 10 mls/hr Documented by: [id number] Cosigned by: [id number] Admin: 05/22/20 15:20 Dose: 5 mg/hr, 5 mls/hr Documented by: [id number] Cosigned by: [id number] Miscellaneous (Stat Iv Infusion Titration Per Protocol) 1 ea N/A NOW STA Stop: 05/22/20 14:29 Last Admin: 05/22/20 15:32 Dose: Not Given Documented by: [id number] Ondansetron HCl (Ondansetron Inj 2 Mg/Ml 2 Ml Vial) 4 mg IV NOW STA Stop: 05/22/20 14:49 Last Admin: 05/22/20 15:20 Dose: 4 mg Documented by: [id number] Potassium Chloride (Potassium Chloride 10 Meq Tabcr) 40 meq PO NOW STA Stop: 05/22/20 16:45 Last Admin: 05/22/20 16:50 Dose: 40 meq Documented by: [id number] Critical Care Time Critical Care Time: Yes Total Critical Care Time: 40 I have personally spent approximately 40 minutes of critical care time in the direct management of this patient. This includes bedside care, interpretation of diagnostic studies, and testing, discussion with consultants, patient, and family members, and other required patient management activities. These minutes are in excess of all separately billable procedures. Medical Decision Making Differential Diagnosis Unstable angina, MD, A. fib with RVR, metabolic derangement, electrolyte abnormality Medical Records Attestation: I reviewed the patient's medical records. He was admitted in March for A. fib with RVR with elevated troponins. He was placed on IV heparin. He was rate controlled with Cardizem and converted to normal sinus rhythm. He left the hospital AMA. Home Medications Current Medication List: was personally reviewed by id Laboratory Data Attestation: I reviewed the patient's lab results. Result diagrams: 05/22/20 15:39 05/22/20 15:39 Lab Results 05/22/20 05/22/20 05/22/20 Range/Units 15:39 15:39 15:39 WBC 11.77 H (4.8-10.8) K/uL RBC 5.31 (4.7-6.1) M/uL Hgb 16.7 (14.0-18.0) g/dL Hct 48.5 (42-52) % MCV 91.3 (80-100) fL MCH 31.5 (25-34) pg MCHC 34.4 (32-36) g/dL RDW Std Deviation 46.1 (36.4-46.3) fL RDW Coeff of Cesar 13.8 (11.5-14.5) % Plt Count 442 H (130-400) K/uL MPV 10.5 H (7.4-10.4) fL Immature Gran % (Auto) 0.2 % Neut % (Auto) 70.2 % Lymph % (Auto) 16.9 % [place] % (Auto) 10.7 % Eos % (Auto) 1.2 % Baso % (Auto) 0.8 % Neut # (Auto) 8.27 H (1.4-6.5) K/uL Lymph # (Auto) 1.99 (1.2-3.4) K/uL [place] # (Auto) 1.26 H (0.11-0.59) K/uL Eos # (Auto) 0.14 (0-0.5) K/uL Baso # (Auto) 0.09 (0-0.2) K/uL Immature Gran # (Auto) 0.02 (0.00-0.02) K/uL PT 10.8 (9.0-12.0) Seconds INR 1.0 (0.9-1.1) APTT 33.0 H (21.0-31.0) Seconds PTT Ratio 1.2 Sodium 139 (136-145) mmol/L Potassium 3.4 L (3.5-5.1) mmol/L Chloride 109 H (98-107) mmol/L Carbon Dioxide 20 L (21-32) mmol/L Anion Gap 10.0 (3-11) BUN 15 (7-18) mg/dl Creatinine 1.02 (0.6-1.4) mg/dl Est Cr Clr Drug Dosing 84.4 ml/min Est GFR ( Amer) 90.2 Est GFR (Non-Af Amer) 77.9 BUN/Creatinine Ratio 14.6 (10-20) Glucose 204 H (70-99) mg/dl Calcium 9.3 (8.5-10.1) mg/dl Total Bilirubin 0.6 (0.2-1) mg/dl AST 18 (15-37) U/L ALT 26 (12-78) U/L Alkaline Phosphatase 156 H (45-117) U/L Troponin I 0.028 (0-0.045) ng/ml Total Protein 7.4 (6.4-8.2) gm/dl Albumin 3.8 (3.4-5.0) gm/dl Globulin 3.6 (2.5-4.0) gm/dl Albumin/Globulin Ratio 1.0 (0.9-2) Lipase 88 (73-393) U/L COVID-19 Eval Order SARS-CoV-2, RNA, NAAT (NEGATIVE) 05/22/20 05/22/20 Range/Units 17:53 17:53 WBC (4.8-10.8) K/uL RBC (4.7-6.1) M/uL Hgb (14.0-18.0) g/dL Hct (42-52) % MCV (80-100) fL MCH (25-34) pg MCHC (32-36) g/dL RDW Std Deviation (36.4-46.3) fL RDW Coeff of Cesar (11.5-14.5) % Plt Count (130-400) K/uL MPV (7.4-10.4) fL Immature Gran % (Auto) % Neut % (Auto) % Lymph % (Auto) % [place] % (Auto) % Eos % (Auto) % Baso % (Auto) % Neut # (Auto) (1.4-6.5) K/uL Lymph # (Auto) (1.2-3.4) K/uL [place] # (Auto) (0.11-0.59) K/uL Eos # (Auto) (0-0.5) K/uL Baso # (Auto) (0-0.2) K/uL Immature Gran # (Auto) (0.00-0.02) K/uL PT (9.0-12.0) Seconds INR (0.9-1.1) APTT (21.0-31.0) Seconds PTT Ratio Sodium (136-145) mmol/L Potassium (3.5-5.1) mmol/L Chloride (98-107) mmol/L Carbon Dioxide (21-32) mmol/L Anion Gap (3-11) BUN (7-18) mg/dl Creatinine (0.6-1.4) mg/dl Est Cr Clr Drug Dosing ml/min Est GFR ( Amer) Est GFR (Non-Af Amer) BUN/Creatinine Ratio (10-20) Glucose (70-99) mg/dl Calcium (8.5-10.1) mg/dl Total Bilirubin (0.2-1) mg/dl AST (15-37) U/L ALT (12-78) U/L Alkaline Phosphatase (45-117) U/L Troponin I (0-0.045) ng/ml Total Protein (6.4-8.2) gm/dl Albumin (3.4-5.0) gm/dl Globulin (2.5-4.0) gm/dl Albumin/Globulin Ratio (0.9-2) Lipase (73-393) U/L COVID-19 Eval [email or web address] SARS-CoV-2, RNA, NAAT NEGATIVE (NEGATIVE) Imaging Data Radiologist's Impression: XR chest 1V portable CLINICAL HISTORY: Chest Pain COMPARISON STUDY: Chest radiograph April 11, 2020. FINDINGS: Lung volumes are normal. Lungs are clear. There is no pneumothorax or pleural effusion. Cardiac size is normal. Mediastinal contours are normal. There is no evidence for pulmonary edema. IMPRESSION: No acute cardiopulmonary findings. ACT 112: Negative or not required by law. Electronically signed by: Dewey Tovar M.D. 05/22/2020 2:44 PM ECG Data Attestation: I personally reviewed and interpreted this ECG as follows: Indication: + chest pain Rate (beats per minute): 130 Rhythm: + atrial fibrillation ECG Intervals/blocks: no Left bundle branch block ECG ST segments: + Nonspecific ST abnormalities ECG Findings: no PVCs Additional Comments: Repeat twelve-lead EKG per my interpretation demonstrates normal sinus rhythm at a rate of 85 bpm. He has T wave inversions in leads I and aVL. No ST segment elevations or PVCs. He does have LVH. MDM Narrative I did provide prehospital medical command for the patient. I did order Cardizem 10 mg IV and normal saline 500 cc IV. I did evaluate the patient on arrival to the ED as noted above. I did place an order for continuous cardiac monitoring. The monitor showed atrial fibrillation with RVR at a rate of 130. I did order and personally review the patient's 12-lead EKG as described above. He has atrial fibrillation with RVR with nonspecific ST-T wave changes. I did treat the patient with Cardizem 10 mg IV. He was also started on a continuous IV Cardizem drip. His blood pressures remained stable. His heart rate came down to 100 but his chest pain remained. I did treat him with IV fentanyl 50 mcg and Zofran IV. On reassessment the patient states that his chest pain is almost completely gone. I did order and personally reviewed the images of the patient's chest x-ray as described above. Chest x-ray is unremarkable. I did order and review the patient's blood work as noted in the electronic medical record. His white count is slightly elevated but he denies any infectious symptoms. Platelet count is 442. Electrolytes demonstrate mild hypokalemia with a potassium of 3.4. I did treat him with K. Dur 40 mEq p.o. Glucose is 204. Troponin is negative. I did reassess the patient. He is not having any chest pain at this time. His heart rate is in the 90s. I did order a second twelve-lead EKG. Per my interpretation he has normal sinus rhythm with T wave inversions in the high lateral leads. I did stop his Cardizem drip. He will be hospitalized for further care and evaluation. I did discuss case with the hospitalist and disease case manager. Impression & Plan Atrial fibrillation with rapid ventricular response, Chest pain, Acute hyp okalemia, Acute hyperglycemia Discharge Plan Visit Data Chief Complaint: Chest Pain Stated Complaint: cp/afib ED Provider: Marcus Macias Discharge Problem: Atrial fibrillation with rapid ventricular response, Chest pain, Acute hypokalemia, Acute hyperglycemia Patient Disposition: Being Evaluated by Hospitalist Forms Stand Alone Forms: My [facility] Prescriptions Prescriptions: No Action multivitamin Tablet 1 tab PO DAILY RF: 0 atorvastatin [Lipitor] 40 mg Tablet 40 mg PO DAILY RF: 0 gabapentin [Neurontin] 600 mg Tablet 600 mg PO TID RF: 0 prazosin 1 mg Capsule 1 mg PO HS RF: 0 lisinopril 20 mg Tablet 20 mg PO DAILY RF: 0 quetiapine [Seroquel] 100 mg Tablet 150 mg PO HS RF: 0 amlodipine [Norvasc] 10 mg Tablet 10 mg PO DAILY RF: 0 pantoprazole [Protonix] 40 mg Tablet,Delayed Release (Dr/Ec) 40 mg PO DAILY RF: 0 metformin 1,000 mg Tablet 1,000 mg PO BID RF: 0 nitroglycerin 0.4 mg Tablet, Sublingual 1 dose sublingual UD PRN (Reason: CHEST PAIN) RF: 0 diclofenac sodium 75 mg Tablet,Delayed Release (Dr/Ec) 75 mg PO BID RF: 0 duloxetine [Cymbalta] 60 mg Capsule,Delayed Release(Dr/Ec) 60 mg PO DAILY RF: 0 bupropion HCl 300 mg tablet extended release 24 hr 300 mg PO DAILY RF: 0 Jardiance 10 mg tablet 10 mg PO DAILY RF: 0 metoprolol succinate 50 mg tablet extended release 24 hr 50 mg PO DAILY RF: 0 aspirin [Aspirin Low Dose] 81 mg Tablet,Delayed Release (Dr/Ec) 162 mg PO DAILY RF: 0 temazepam 15 mg Capsule 15 mg PO HS RF: 0 baclofen 10 mg Tablet 10 mg PO BID RF: 0 nortriptyline 10 mg Capsule 10 mg PO HS RF: 0 sodium chloride [Saline Mist] 0.65 % Aerosol,[place] 2 spray INTRANASAL QID PRN (Reason: Nasal Congestion) RF: 0 Advair Diskus 1 puff 1 puff PO BID RF: 0 Referrals Referrals: PCP,NO [Primary Care Provider] - Discharge Problem: Chest pain Qualifiers: Chest pain type: unspecified Qualified Code(s): R07.9 - Chest pain, unspecified
--- NOTE | 2020-05-22 14:45 | XRay Report ---
XR chest 1V portable CLINICAL HISTORY: Chest Pain COMPARISON STUDY: Chest radiograph April 11, 2020. FINDINGS: Lung volumes are normal. Lungs are clear. There is no pneumothorax or pleural effusion. Car diac size is normal. Mediastinal contours are normal. There is no evidence for pulmonary edema. IMPRESSION: No acute cardiopulmonary findings. ACT 112: Negative or not required by law. Electronically signed by: Dewey Tovar M.D. 05/22/2020 2:44 PM
[2020-05-22] MEDS ORDERED: fentaNYL citrate 100 MCG/2 ML VIAL IV STA (14:48)
[2020-05-22] MEDS ORDERED: ONDANSETRON INJ 2 MG/ML 2 ML VIAL IV STA (14:48)
[2020-05-22 15:46] LABS: Basophils # (auto) 0.09 K/uL (0-0.2); Basophils % (auto) 0.8 %; Eosinophils # (auto) 0.14 K/uL (0-0.5); Eosinophils % (auto) 1.2 %; Hematocrit (blood only) 48.5 % (42-52); Hemoglobin 16.7 g/dL (14.0-18.0); Immature Granulocytes # (auto) 0.02 K/uL (0.00-0.02); Immature Granulocytes % (auto) 0.2 %; Lymphocytes # (auto) 1.99 K/uL (1.2-3.4); Lymphocytes % (auto) 16.9 %; Mean Corpuscular Hemoglobin 31.5 pg (25-34); Mean Corpuscular Hgb Conc 34.4 g/dL (32-36); Mean Corpuscular Volume 91.3 fL (80-100); Mean Platelet Volume 10.5 fL (7.4-10.4); Monocytes # (auto) 1.26 K/uL (0.11-0.59); Monocytes % (auto) 10.7 %; Neutrophils # (auto) 8.27 K/uL (1.4-6.5); Neutrophils % (auto) 70.2 %; Platelet Count 442 K/uL (130-400); RDW Coefficient of Variation 13.8 % (11.5-14.5); RDW Standard Deviation 46.1 fL (36.4-46.3); Red Blood Count 5.31 M/uL (4.7-6.1); White Blood Count 11.77 K/uL (4.8-10.8)
[2020-05-22 16:12] LABS: Partial Thromboplastin Ratio 1.2; Prothrombin Time 10.8 Seconds (9.0-12.0)
[2020-05-22 16:33] LABS: Albumin Level 3.8 gm/dl (3.4-5.0); BUN Creatinine Ratio 14.6 (10-20); Calcium 9.3 mg/dl (8.5-10.1); Creatinine Clr Calc Pharmacy 84.4 ml/min; Est GFR (African American) 90.2; Est GFR (Non-African American) 77.9; Potassium 3.4 mmol/L (3.5-5.1)
[2020-05-22 16:40] LABS: Bilirubin,Total 0.6 mg/dl (0.2-1); Globulin 3.6 gm/dl (2.5-4.0); Total Protein 7.4 gm/dl (6.4-8.2); Troponin I 0.028 ng/ml (0-0.045)
[2020-05-22] MEDS ORDERED: POTASSIUM CHLORIDE 10 MEQ TABCR PO STA (16:44)
--- NOTE | 2020-05-22 19:29 | History & Physical Report ---
Date of Service May 22, 2020 By CMS guidelines, a determination that the admission or continued stay is not medically necessary has been made by a member of the UR committee and a physician for this hospital stay, therefore a Code 44 will be completed and the Inpatient admission will be changed to outpatient. Assessment & Plan (1) Atrial fibrillation with rapid ventricular response: Present on admission with chest pain associated with palpitation Mostly due medication compliant since pt has not been taking his medication for 4 days vs hypokalemia EKG on admission showed Afib with HR 130 Received IV cardizem bolus, then started on heparin drip Spontaneously converted back to NSR, then Cardizem drip was discontinue in the ER Resumed metoprolol succinate 50mg daily, next dose given now in the ER Few weeks ago pt was admitted for Afib and RVR and signed AMA Cardiology was planning to start on anticoagulant but left AMA Pt is non compliant with meds, does not think coumadin will be a good option, but will have to check cost for the DOAC since pt is unable to afford any co-pay During last admission cardiology was planning to anticoagulate him for at least 30 days to prevent a CVA. Will consider to start on heparin drip while inpatient Will not repeat echo since pt recently had an echo during last admission on 04/12 that showed no segmental left ventricular wall motion abnormalities. Normal LV systolic function, with ejection fraction 55 to 60%. Will consult cardiology Will talk to caseworker about assistance with meds Potassium replaced, will keep K above 4 Continue monitor closely in tele Chest pain Possible related to afib EKG showed Afib with HR 130 Troponin on admission negative Currently denies any chest pain Will trend cardiac marker Will resume Aspirin, statin and metoprolol Will make NPO after midnight in case cardio plan for any additional testing Hypokalemia K 3.4 today, replaced monitor BMP Elevated WBC Possible due to reactive CXR no acute cardiopulmonary findings. COVID 19 negative No sign of infection Continue monitor CBC Diabetes type 2 Most recent A1C 9.6 on 04/03 Will hold oral diabetes meds Will start on lantus 10 units and insulin sliding scale while inpatient Continue monitor BS Bipolar Disorder Continue Bupropion, Cymbalta and Seroquel Stable Asthma Continue Advair will add on prn neb stable DVT px on heparin drip for now Disposition Will discharge once medically stable (2) Chest pain: History of Present Illness Chief Complaint: Chest pain Primary Care Provider: MELVIN PCP 63-year-old male with past medical history significant for type 2 diabetes, bipolar disorder, tobacco use disorder, history of NE, hypertension, asthma, hyperlipidemia, history of CVA, GERD was brought to the ER by EMS for chest pain and palpitation. Pt said that this afternoon he developed pressure like chest pain, located in his mid chest area and radiated to his left shoulder, constant. He said that he had severe headache and became diaphoresis. He said that chest pain seems to worsening with activity. He said that he developed SOB associated with palpitation as well. Pt said that he ran out of his medications about 4 days ago. He said that he called for his meds refill but because he had owed a balance, the pharmacy said that he needed to pay for the balance in order for them to send his medications. Pt said that he cannot afford his copay. In January he was admitted after he ran out of his medications and in March he was admitted for Afib and signed AMA. In the ER he was found in Afib and RVR. Currently denies any chest pain, palpitation, dizziness, fever and SOB. Allergies Allergy/AdvReac Type Severity Reaction Status Date / Time levofloxacin [From Levaquin] Allergy Mild Rash Verified 05/22/20 17:22 Home Medications Home Medications Medication Instructions Recorded Confirmed Type amlodipine [Norvasc] 10 mg PO DAILY 10/09/18 05/22/20 History atorvastatin [Lipitor] 40 mg PO DAILY 10/09/18 05/22/20 History diclofenac sodium 75 mg PO BID 10/09/18 05/22/20 History duloxetine [Cymbalta] 60 mg PO DAILY 10/09/18 05/22/20 History gabapentin [Neurontin] 600 mg PO TID 10/09/18 05/22/20 History lisinopril 20 mg PO DAILY 10/09/18 05/22/20 History metformin 1,000 mg PO BID 10/09/18 05/22/20 History multivitamin 1 tab PO DAILY 10/09/18 05/22/20 History nitroglycerin 1 dose SUBLINGUAL UD PRN 10/09/18 05/22/20 History pantoprazole [Protonix] 40 mg PO DAILY 10/09/18 05/22/20 History prazosin 1 mg PO HS 10/09/18 05/22/20 History quetiapine [Seroquel] 150 mg PO HS 10/09/18 05/22/20 History aspirin [Aspirin Low Dose] 162 mg PO DAILY 04/11/20 05/22/20 History bupropion HCl 300 mg PO DAILY 04/11/20 05/22/20 History empagliflozin [Jardiance] 10 mg PO DAILY 04/11/20 05/22/20 History metoprolol succinate 50 mg PO DAILY 04/11/20 05/22/20 History baclofen 10 mg PO BID 05/22/20 05/22/20 History fluticasone propion-salmeterol 1 inh INHALATION BID 05/22/20 05/22/20 History [Advair Diskus] nortriptyline 10 mg PO HS 05/22/20 05/22/20 History sodium chloride [Saline Mist] 2 spray INTRANASAL QID PRN 05/22/20 05/22/20 History temazepam 15 mg PO HS 05/22/20 05/22/20 History Past Med/Surg History Medical History (Updated 05/23/20 @ 12:16 by Shanti Gonzales DO) Acute hyperglycemia DEMARIO (acute kidney injury) Anxiety Atrial fibrillation with rapid ventricular response Chronic back pain Depression Diabetes mellitus, type 2 Diaphoresis GERD (gastroesophageal reflux disease) Hyperlipidemia Hypertension Noncompliance with medication regimen Poor historian pt lives alone; pt states he can not read or write but can sign own consents Transient ischemic attack (TIA) per record Surgical History History of cardiac cath 2012 History of colonoscopy History of open reduction and internal fixation (ORIF) procedure right ankle--hardware in place History of tooth extraction all teeth Family History Other Family history unknown Social History Smoking Status: Current every day smoker Tobacco Type: Cigarettes Cigarettes Per Day: 20; Second Hand Exposure: No; Hx Alcohol Use: No Hx Substance Use: No Preferred Language: Micronesian Communication Ability: Effective Night Clerk Auditor Required: No Beliefs That Will Affect Care: None marital status: Single Current Living Situation: Homeless Current Living Situation Comment: [facility] Other Information That Helps Us Care for You: No Feels Safe at Home: Declines to Answer Safety Concerns: Feels Safe At This Time Assistive Devices: None Review of Systems Review of Systems: All systems reviewed & are unremarkable except as noted in HPI & below Physical Exam Physical Exam: General- No acute distress Head- atraumatic Eyes- PERRL, EOMI, ENT- oropharynx clear Neck- supple, no JVD Lungs- clear to auscultation Heart- regular rhythm; +murmur Abdomen- normal bowel sounds, soft, nontender Extremities- no calf tenderness Neuro- alert, oriented x 3; PERRL, EOMI; no facial palsy; no dysarthria Skin- warm & dry Results & Data Results & Data ([facility]) Vital Signs (Past 12 Hours) Vital Signs Temp Pulse Resp BP Pulse Ox 05/22/20 18:10 87 18 05/22/20 18:00 88 18 130/86 05/22/20 17:50 96 H 25 H 05/22/20 17:40 96 H 22 05/22/20 17:30 87 18 119/75 05/22/20 17:20 83 21 05/22/20 17:10 85 17 05/22/20 17:00 87 18 137/78 05/22/20 16:52 100 H 28 H 05/22/20 16:30 99 H 28 H 127/80 05/22/20 16:20 98 H 22 05/22/20 16:01 132 H 30 H 98/77 L 05/22/20 16:00 149 H 23 05/22/20 15:47 142 H 36 H 110/67 98 05/22/20 15:40 125 H 30 H 96 05/22/20 15:20 128 H 26 H 97 05/22/20 15:01 97 05/22/20 15:00 137 H 32 H 97 05/22/20 14:46 113 H 26 H 133/106 H 97 05/22/20 14:40 124 H 24 97 05/22/20 14:29 125 H 29 H 99 05/22/20 14:26 136 H 23 146/90 H 99 05/22/20 14:25 36.7 C 135 H 18 133/106 H 96 Diagnostic Findings XR chest 1V portable CLINICAL HISTORY: Chest Pain COMPARISON STUDY: Chest radiograph April 11, 2020. FINDINGS: Lung volumes are normal. Lungs are clear. There is no pneumothorax or pleural effusion. Cardiac size is normal. Mediastinal contours are normal. There is no evidence for pulmonary edema. IMPRESSION: No acute cardiopulmonary findings. ACT 112: Negative or not required by law. Electronically signed by: Dewey Tovar M.D. 05/22/2020 2:44 PM Dictated: 05/22/20 144Transcribed: 05/22/20 144 (1) Chest pain Chest pain type: unspecified Qualified Code(s): R07.9 - Chest pain, unspecified
[2020-05-22] MEDS ORDERED: SODIUM CHLORIDE 0.65% NA SOLN 45 ML (OCEAN) PRN (20:30)
[2020-05-22] MEDS ORDERED: GLUCOSE 10 TABS/TUBE PO PRN (20:30)
[2020-05-22] MEDS ORDERED: CARBOHYDRATES FOR HYPOGLYCEMIA PO PRN (20:30)
[2020-05-22] MEDS ORDERED: HEPARIN SODIUM/DEXTROSE 25,000 UNITS/500 ML BAG IV SCH (20:30)
[2020-05-22] MEDS ORDERED: GLUCAGON FOR INJ 1 MG VIAL SQ PRN (20:30)
[2020-05-22] MEDS ORDERED: ALBUT/IPRATROP 3MG/0.5MG NEB 3 ML VIAL NEB PRN (20:30)
[2020-05-22] MEDS ORDERED: DEXTROSE 50% 50 ML SYRINGE IV PRN (20:30)
[2020-05-22] MEDS ORDERED: NITROGLYCERIN SL 0.4 MG/TAB TAB SL PRN (20:30)
[2020-05-22] MEDS ORDERED: GLUCOSE 40% GEL 15 GM TUBE PO PRN (20:30)
[2020-05-22] MEDS ORDERED: TEMAZEPAM 15 MG CAPSULE PO SCH (21:00)
[2020-05-22] MEDS ORDERED: QUEtiapine FUMARATE 25 MG TABLET PO SCH (21:00)
[2020-05-22] MEDS ORDERED: ADVAIR PO SCH (21:00)
[2020-05-22] MEDS ORDERED: INSULIN GLARGINE SOLOSTAR 100 UNITS/ML 3 ML PEN SC SCH (21:00)
[2020-05-22] MEDS ORDERED: PRAZOSIN HCL 1 MG CAP PO SCH (21:00)
[2020-05-22] MEDS ORDERED: NORTRIPTYLINE HCL 10 MG CAP PO SCH (21:00)
[2020-05-22] MEDS ORDERED: Heparin IV Standard *NO* Bolus IV SCH (21:00)
[2020-05-22] MEDS ORDERED: QUEtiapine FUMARATE 100 MG TABLET PO SCH (21:00)
[2020-05-22] MEDS: BACLOFEN 10 MG TAB PO SCH (21:41)
[2020-05-22] MEDS: GABAPENTIN 600 MG TAB PO SCH (21:41)
[2020-05-22] MEDS: INSULIN ASPART 100 UNITS/ML 3 ML PEN SC SCH (21:45)
[2020-05-23] MEDS ORDERED: METOPROLOL SUCC 25MG EXT REL TAB PO SCH
[2020-05-23] MEDS: INSULIN ASPART 100 UNITS/ML 3 ML PEN SC SCH ×2 (00:03→05:24)
[2020-05-23 03:50] LABS: Hematocrit (blood only) 45.5 % (42-52); Hemoglobin 15.2 g/dL (14.0-18.0); Mean Corpuscular Hgb Conc 33.4 g/dL (32-36); Mean Corpuscular Volume 92.9 fL (80-100); Mean Platelet Volume 10.3 fL (7.4-10.4); Platelet Count 364 K/uL (130-400); RDW Coefficient of Variation 13.9 % (11.5-14.5); RDW Standard Deviation 47.2 fL (36.4-46.3); White Blood Count 8.83 K/uL (4.8-10.8)
[2020-05-23 04:14] LABS: Partial Thromboplastin Ratio 1.9
[2020-05-23 04:15] LABS: BUN Creatinine Ratio 17.9 (10-20); Calcium 9.1 mg/dl (8.5-10.1); Creatinine Clr Calc Pharmacy 77.8 ml/min; Est GFR (African American) 83.3; Est GFR (Non-African American) 71.9; Magnesium 2.3 mg/dl (1.8-2.4); Potassium 3.5 mmol/L (3.5-5.1)
[2020-05-23 04:20] LABS: Troponin I 0.027 ng/ml (0-0.045)
[2020-05-23 04:23] LABS: Partial Thromboplastin Time 53.9 Seconds (21.0-31.0)
[2020-05-23 07:14] VITALS: TEMP 97.9
[2020-05-23] MEDS ORDERED: MULTIVITAMIN TAB PO SCH (09:00)
[2020-05-23] MEDS ORDERED: ASPIRIN 81 MG ECTAB PO SCH ×3 (09:00)
[2020-05-23] MEDS ORDERED: ATORVASTATIN 40 MG TAB PO SCH (09:00)
[2020-05-23] MEDS ORDERED: DULoxetine HCL 60 MG CAP PO SCH (09:00)
[2020-05-23] MEDS ORDERED: amLODIPine BESYLATE 5 MG TAB PO SCH (09:00)
[2020-05-23] MEDS ORDERED: lisinopril 20 MG TAB PO SCH (09:00)
[2020-05-23] MEDS ORDERED: METOPROLOL SUCC 50MG EXT REL TAB PO SCH (09:00)
[2020-05-23] MEDS ORDERED: PANTOprazole 40 MG TAB PO SCH (09:00)
[2020-05-23] MEDS ORDERED: buPROPion XL 300 MG TABCR PO SCH (09:00)
--- NOTE | 2020-05-23 09:00 | Cardiology Consultation ---
Date of Consultation May 23, 2020 Assessment & Plan (1) Atrial fibrillation with rapid ventricular response: (2) Homeless single person: (3) Diabetes mellitus with hyperglycemia: (4) Noncompliance: This is as much a social admission as it is a cardiac admission. He is currently back on his outpatient medications. He is taking aspirin 81 mg daily and is currently on a heparin drip. At this time I would not anticoagulate this patient after discharge. I am concerned about his noncompliance as well as his social situation in regard to follow-up and bleeding risk. I would leave him on aspirin only. He is threatening to sign out AMA, however we should attempt to try and have [facility] at [facility] and/or have social service review his medical insurance situation and see if he is eligible for Medicaid or early Medicare. History of Present Illness Attending Physician: Shanti Gonzales, History of Present Illness This is a 64-year-old male patient with the previous history as outlined below. At the end of March he saw [facility] cardiology for preoperative clearance regarding ankle surgery at which time he underwent a pharmacologic nuclear stress test that was negative. Unfortunately, according the patient he was not able to have his ankle surgery completed because he had no insurance. He had a hospital admission in late March due to atrial fibrillation and RVR. Unfortunately the patient has limited capacity and has been homeless. He eventually signed himself out AMA from that admission. He is readmitted now with another occurrence of atrial fibrillation and RVR that converted quickly and spontaneously in the emergency department after being bolused with diltiazem. He has been maintaining sinus rhythm and has no cardiac complaints this morning except that he is threatening to leave AMA again. Past medical history: Cardiac catheterization 2011 nonobstructive minimal irregularities Dyslipidemia type 2 diabetes mellitus Hypertension History of CVA History of bipolar disease Allergies Allergy/AdvReac Type Severity Reaction Status Date / Time levofloxacin [From Levaquin] Allergy Mild Rash Verified 05/22/20 17:22 Home Medications Home Medications Medication Instructions Recorded Confirmed Type amlodipine [Norvasc] 10 mg PO DAILY 10/09/18 05/22/20 History atorvastatin [Lipitor] 40 mg PO DAILY 10/09/18 05/22/20 History diclofenac sodium 75 mg PO BID 10/09/18 05/22/20 History duloxetine [Cymbalta] 60 mg PO DAILY 10/09/18 05/22/20 History gabapentin [Neurontin] 600 mg PO TID 10/09/18 05/22/20 History lisinopril 20 mg PO DAILY 10/09/18 05/22/20 History metformin 1,000 mg PO BID 10/09/18 05/22/20 History multivitamin 1 tab PO DAILY 10/09/18 05/22/20 History nitroglycerin 1 dose SUBLINGUAL UD PRN 10/09/18 05/22/20 History pantoprazole [Protonix] 40 mg PO DAILY 10/09/18 05/22/20 History prazosin 1 mg PO HS 10/09/18 05/22/20 History quetiapine [Seroquel] 150 mg PO HS 10/09/18 05/22/20 History aspirin [Aspirin Low Dose] 162 mg PO DAILY 04/11/20 05/22/20 History bupropion HCl 300 mg PO DAILY 04/11/20 05/22/20 History empagliflozin [Jardiance] 10 mg PO DAILY 04/11/20 05/22/20 History metoprolol succinate 50 mg PO DAILY 04/11/20 05/22/20 History baclofen 10 mg PO BID 05/22/20 05/22/20 History fluticasone propion-salmeterol 1 inh INHALATION BID 05/22/20 05/22/20 History [Advair Diskus] nortriptyline 10 mg PO HS 05/22/20 05/22/20 History sodium chloride [Saline Mist] 2 spray INTRANASAL QID PRN 05/22/20 05/22/20 History temazepam 15 mg PO HS 05/22/20 05/22/20 History Patient History Medical History (Updated 05/23/20 @ 10:59 by Jonathan Pollard DO) Acute hyperglycemia DEMARIO (acute kidney injury) Anxiety Atrial fibrillation with rapid ventricular response Chronic back pain Depression Diabetes mellitus, type 2 Diaphoresis GERD (gastroesophageal reflux disease) Hyperlipidemia Hypertension Noncompliance with medication regimen Poor historian pt lives alone; pt states he can not read or write but can sign own consents Transient ischemic attack (TIA) per record Surgical History History of cardiac cath 2011 History of colonoscopy History of open reduction and internal fixation (ORIF) procedure right ankle--hardware in place History of tooth extraction all teeth Family History Other Family history unknown Social History Smoking Status: Current every day smoker Tobacco Type: Cigarettes Cigarettes Per Day: 20; Second Hand Exposure: No; Hx Alcohol Use: No Hx Substance Use: No Preferred Language: Slovenian Communication Ability: Effective Security Checker Required: No Beliefs That Will Affect Care: None marital status: Single Current Living Situation: Homeless Current Living Situation Comment: [facility] Other Information That Helps Us Care for You: No Feels Safe at Home: Declines to Answer Safety Concerns: Feels Safe At This Time Assistive Devices: None Review of Systems Review of Systems: All systems reviewed & are unremarkable except as noted in HPI & below Nothing additional to add Physical Exam Physical Exam: General: no acute distress and stated age Head: normocephalic, no masses, lesions, tenderness or abnormalities Eyes: conjunctiva are pink and non-injected, sclera clear Neck: supple, no adenopathy, no bruits, normal jugular venous pulse, no hepatojugular reflux Chest: normal shape and normal respiratory effort Lungs: clear to auscultation and percussion Cardiac Exam: - regular rate & rhythm, no murmurs gallops or rubs - normal S1, normal S2 Pulses: 2(+) throughout Abdomen: abdomen soft, non-tender, no abnormal masses and no hepatosplenomegaly Musculoskeletal: no gait disturbance, no joint inflammation, no deforming arthritis Extremities: no edema and no cyanosis Neuro: grossly normal exam Results & Data ([facility]) Vital Signs (Past 12 Hours) Vital Signs Temp Pulse Pulse Resp BP BP Pulse Ox 05/23/20 07:13 36.6 C 108 H 20 129/76 98 05/23/20 03:28 36.9 C 96 H 18 137/75 95 05/22/20 23:24 37.1 C 101 H 20 150/82 H 98 05/22/20 23:23 77 05/22/20 21:53 80 Laboratory Results Laboratory Results - last 24 hr 05/22/20 05/22/20 05/22/20 15:39 15:39 15:39 WBC 11.77 H RBC 5.31 Hgb 16.7 Hct 48.5 MCV 91.3 MCH 31.5 MCHC 34.4 RDW Std Deviation 46.1 RDW Coeff of Cesar 13.8 Plt Count 442 H MPV 10.5 H Immature Gran % (Auto) 0.2 Neut % (Auto) 70.2 Lymph % (Auto) 16.9 [place] % (Auto) 10.7 Eos % (Auto) 1.2 Baso % (Auto) 0.8 Neut # (Auto) 8.27 H Lymph # (Auto) 1.99 [place] # (Auto) 1.26 H Eos # (Auto) 0.14 Baso # (Auto) 0.09 Immature Gran # (Auto) 0.02 PT 10.8 INR 1.0 APTT 33.0 H PTT Ratio 1.2 Sodium 139 Potassium 3.4 L Chloride 109 H Carbon Dioxide 20 L Anion Gap 10.0 BUN 15 Creatinine 1.02 Est Cr Clr Drug Dosing 84.4 Est GFR ( Amer) 90.2 Est GFR (Non-Af Amer) 77.9 BUN/Creatinine Ratio 14.6 Glucose 204 H POC Glucose Calcium 9.3 Magnesium Total Bilirubin 0.6 AST 18 ALT 26 Alkaline Phosphatase 156 H Troponin I 0.028 Total Protein 7.4 Albumin 3.8 Globulin 3.6 Albumin/Globulin Ratio 1.0 Lipase 88 COVID-19 Eval Order SARS-CoV-2, RNA, NAAT 05/22/20 05/22/20 05/22/20 17:53 17:53 21:30 WBC RBC Hgb Hct MCV MCH MCHC RDW Std Deviation RDW Coeff of Cesar Plt Count MPV Immature Gran % (Auto) Neut % (Auto) Lymph % (Auto) [place] % (Auto) Eos % (Auto) Baso % (Auto) Neut # (Auto) Lymph # (Auto) [place] # (Auto) Eos # (Auto) Baso # (Auto) Immature Gran # (Auto) PT INR APTT PTT Ratio Sodium Potassium Chloride Carbon Dioxide Anion Gap BUN Creatinine Est Cr Clr Drug Dosing Est GFR ( Amer) Est GFR (Non-Af Amer) BUN/Creatinine Ratio Glucose POC Glucose 323 H* Calcium Magnesium Total Bilirubin AST ALT Alkaline Phosphatase Troponin I Total Protein Albumin Globulin Albumin/Globulin Ratio Lipase COVID-19 Eval [facility] SARS-CoV-2, RNA, NAAT NEGATIVE 05/22/20 05/23/20 05/23/20 21:45 00:01 03:36 WBC RBC Hgb Hct MCV MCH MCHC RDW Std Deviation RDW Coeff of Cesar Plt Count MPV Immature Gran % (Auto) Neut % (Auto) Lymph % (Auto) [place] % (Auto) Eos % (Auto) Baso % (Auto) Neut # (Auto) Lymph # (Auto) [place] # (Auto) Eos # (Auto) Baso # (Auto) Immature Gran # (Auto) PT INR APTT 53.9 H* PTT Ratio 1.9 Sodium Potassium Chloride Carbon Dioxide Anion Gap BUN Creatinine Est Cr Clr Drug Dosing Est GFR ( Amer) Est GFR (Non-Af Amer) BUN/Creatinine Ratio Glucose POC Glucose 237 H Calcium Magnesium Total Bilirubin AST ALT Alkaline Phosphatase Troponin I 0.031 Total Protein Albumin Globulin Albumin/Globulin Ratio Lipase COVID-19 Eval Order SARS-CoV-2, RNA, NAAT 05/23/20 05/23/20 05/23/20 03:36 03:36 05:21 WBC 8.83 RBC 4.90 Hgb 15.2 Hct 45.5 MCV 92.9 MCH 31.0 MCHC 33.4 RDW Std Deviation 47.2 H RDW Coeff of Cesar 13.9 Plt Count 364 MPV 10.3 Immature Gran % (Auto) Neut % (Auto) Lymph % (Auto) [place] % (Auto) Eos % (Auto) Baso % (Auto) Neut # (Auto) Lymph # (Auto) [place] # (Auto) Eos # (Auto) Baso # (Auto) Immature Gran # (Auto) PT INR APTT PTT Ratio Sodium 139 Potassium 3.5 Chloride 109 H Carbon Dioxide 24 Anion Gap 6.0 BUN 19 H Creatinine 1.09 Est Cr Clr Drug Dosing 77.8 Est GFR ( Amer) 83.3 Est GFR (Non-Af Amer) 71.9 BUN/Creatinine Ratio 17.9 Glucose 222 H POC Glucose 225 H Calcium 9.1 Magnesium 2.3 Total Bilirubin AST ALT Alkaline Phosphatase Troponin I 0.027 Total Protein Albumin Globulin Albumin/Globulin Ratio Lipase COVID-19 Eval Order SARS-CoV-2, RNA, NAAT Medications Administered Current Inpatient Medications Albuterol (Albut/Ipratrop 3mg/0.5mg Neb 3 Ml Vial) 3 ml NEB Q4R PRN PRN Reason: SOB/Wheezing Stop: 06/21/20 22:59 Amlodipine Besylate (Amlodipine Besylate 5 Mg Tab) 10 mg PO DAILY [facility] Stop: 06/22/20 08:59 Last Admin: 05/23/20 09:08 Dose: 10 mg Documented by: Aspirin (Aspirin 81 Mg Ectab) 81 mg PO QAM [facility] Stop: 06/22/20 08:59 Last Admin: 05/23/20 09:08 Dose: 81 mg Documented by: Atorvastatin Calcium (Atorvastatin 40 Mg Tab) 40 mg PO DAILY [facility] Stop: 06/22/20 08:59 Last Admin: 05/23/20 09:08 Dose: 40 mg Documented by: Baclofen (Baclofen 10 Mg Tab) 10 mg PO BID [facility] Stop: 06/21/20 20:59 Last Admin: 05/23/20 09:08 Dose: 10 mg Documented by: Bupropion HCl (Bupropion Xl 300 Mg Tabcr) 300 mg PO DAILY [facility] Stop: 06/22/20 08:59 Last Admin: 05/23/20 09:09 Dose: 300 mg Documented by: Dextrose (Dextrose 50% 50 Ml Syringe) 25 - 50 ml IV UD PRN; Protocol PRN Reason: Hypoglycemia Protocol Stop: 06/21/20 20:29 Duloxetine HCl (Duloxetine Hcl 60 Mg Cap) 60 mg PO DAILY [facility] Stop: 06/22/20 08:59 Last Admin: 05/23/20 09:07 Dose: 60 mg Documented by: Fluticasone/Vilanterol (Fluticasone/Vilanterol 200/25mcg 14 Puffs/Inhaler) 1 puffs INH QPM [facility]DE[facility]; Protocol Stop: 06/22/20 20:59 Last Admin: 05/23/20 09:06 Dose: 1 puffs Documented by: Gabapentin (Gabapentin 600 Mg Tab) 600 mg PO TID [facility] Stop: 06/21/20 20:59 Last Admin: 05/23/20 09:07 Dose: 600 mg Documented by: Glucagon (Glucagon For Inj 1 Mg Vial) 1 mg SQ UD PRN; Protocol PRN Reason: Hypoglycemia Protocol Stop: 06/21/20 20:29 Glucose (Glucose 10 Tabs/Tube) 4 - 8 tabs PO UD PRN; Protocol PRN Reason: Hypoglycemia Protocol Stop: 06/21/20 20:29 Glucose (Glucose 40% Gel 15 Gm Tube) 15 - 30 gm PO UD PRN; Protocol PRN Reason: Hypoglycemia Protocol Stop: 06/21/20 20:29 Heparin Sodium/Dextrose (Heparin Sodium/Dextrose) 25,000 units in 500 mls @ 29 mls/hr IV .[id number] ADE[facility]; Protocol Stop: 06/21/20 20:29 Last Titration: 05/23/20 04:25 Dose: 1,450 units/hr, 29 mls/hr Documented by: Insulin Aspart (Insulin Aspart 100 Units/Ml 3 Ml Pen) 0 units SC Q6 [facility] Stop: 06/22/20 00:00 Last Admin: 05/23/20 05:24 Dose: 2 units Documented by: Insulin Glargine (Insulin Glargine Solostar 100 Units/Ml 3 Ml Pen) 10 units SC HS [facility] Stop: 06/21/20 20:59 Last Admin: 05/22/20 21:44 Dose: 10 units Documented by: Lisinopril (Lisinopril 20 Mg Tab) 20 mg PO DAILY [facility] Stop: 06/22/20 08:59 Last Admin: 05/23/20 09:09 Dose: 20 mg Documented by: Metoprolol Succinate (Metoprolol Succ 50mg Ext Rel Tab) 50 mg PO DAILY [facility] Stop: 06/22/20 08:59 Last Admin: 05/23/20 09:07 Dose: 50 mg Documented by: Miscellaneous (Carbohydrates For Hypoglycemia ) 15 - 30 gm PO UD PRN PRN Reason: Hypoglycemia Protocol Stop: 06/21/20 20:29 Multivitamins (Multivitamin Tab) 1 tab PO DAILY [facility] Stop: 06/22/20 08:59 Last Admin: 05/23/20 09:09 Dose: 1 tab Documented by: Nitroglycerin (Nitroglycerin Sl 0.4 Mg/Tab Tab) 0.4 mg SL UD PRN PRN Reason: CHEST PAIN Stop: 06/21/20 20:29 Nortriptyline HCl (Nortriptyline Hcl 10 Mg Cap) 10 mg PO HS [facility] Stop: 06/21/20 20:59 Last Admin: 05/22/20 21:41 Dose: 10 mg Documented by: Pantoprazole Sodium (Pantoprazole 40 Mg Tab) 40 mg PO DAILY [facility] Stop: 06/22/20 08:59 Last Admin: 05/23/20 09:09 Dose: 40 mg Documented by: Prazosin HCl (Prazosin Hcl 1 Mg Cap) 1 mg PO HS [facility] Stop: 06/21/20 20:59 Last Admin: 05/22/20 21:41 Dose: 1 mg Documented by: Quetiapine Fumarate (Quetiapine Fumarate 100 Mg Tablet) 100 mg PO [facility] Stop: 06/21/20 20:59 Last Admin: 05/22/20 21:41 Dose: 100 mg Documented by: Quetiapine Fumarate (Quetiapine Fumarate 25 Mg Tablet) 50 mg PO [facility] Stop: 06/21/20 20:59 Last Admin: 05/22/20 21:40 Dose: 50 mg Documented by: Sodium Chloride (Sodium Chloride 0.65% Na Soln 45 Ml ([place])) 2 sprays NA QID PRN PRN Reason: Nasal Congestion Stop: 06/21/20 20:29 Temazepam (Temazepam 15 Mg Capsule) 15 mg PO [facility] Stop: 06/21/20 20:59 Last Admin: 05/22/20 22:26 Dose: 15 mg Documented by:
[2020-05-23] MEDS: GABAPENTIN 600 MG TAB PO SCH (09:07)
[2020-05-23] MEDS: BACLOFEN 10 MG TAB PO SCH (09:08)
--- NOTE | 2020-05-23 10:06 | Electrocardiogram Report ---
Test Reason : Blood Pressure : / mmHG Vent. Rate : 130 BPM Atrial Rate : 227 BPM P-R Int : 000 ms QRS Dur : 078 ms QT Int : 328 ms P-R-T Axes : 000 -02 128 degrees QTc Int : 482 ms Atrial fibrillation with rapid ventricular response Abnormal ECG When compared with ECG of 12-APR-2020 00:46, Atrial fibrillation has replaced Sinus rhythm Confirmed by Jose Rafael Gonzalez ([id number]) on 05/23/2020 10:05:54 AM Referred By: REFERRED SELF Confirmed By:Jose Rafael Gonzalez
--- NOTE | 2020-05-23 10:10 | Electrocardiogram Report ---
Test Reason : Blood Pressure : / mmHG Vent. Rate : 085 BPM Atrial Rate : 085 BPM P-R Int : 178 ms QRS Dur : 078 ms QT Int : 370 ms P-R-T Axes : 035 -07 122 degrees QTc Int : 440 ms Normal sinus rhythm Left ventricular hypertrophy with repolarization abnormality Abnormal ECG When compared with ECG of 22-MAY-2020 14:25, (unconfirmed) Sinus rhythm has replaced Atrial fibrillation Vent. rate has decreased BY 45 BPM Confirmed by Jose Rafael Gonzalez ([id number] on 05/23/2020 10:10:28 AM Referred By: REFERRED SELF Confirmed By:Jose Rafael Gonzalez
[2020-05-23 11:17] VITALS: O2SAT 97
[2020-05-23] MEDS ORDERED: INSULIN ASPART 100 UNITS/ML 3 ML PEN SC SCH (11:30)
[2020-05-23] MEDS ORDERED: traMADol HCL 50 MG TABLET PO STA (12:01)
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
[2020-05-23] MEDS ORDERED: traMADol HCL 50 MG TABLET ONE (12:02)
[2020-05-23 12:49] VITALS: BP 137/75; PULSE 79
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
[2020-05-23] MEDS ORDERED: FLUTICASONE/VILANTEROL 200/25MCG 14 PUFFS/INHALER INH SCH (21:00)
== END 2020-05-23 13:27 | disposition home or self-care (01) | DRG 310 ==
LOC: ED 14:21 → SUATTDRO 18:39 → 2S 18:39
DX: Z86.73 Personal history of transient ischemic attack (TIA), and cerebral infarction without residual deficits; F31.9 Bipolar disorder, unspecified; F17.210 Nicotine dependence, cigarettes, uncomplicated; I48.91 Unspecified atrial fibrillation; Z91.120 Patient's intentional underdosing of medication regimen due to financial hardship; Z62.819 Personal history of unspecified abuse in childhood; Z88.1 Allergy status to other antibiotic agents; Z79.899 Other long term (current) drug therapy; E87.6 Hypokalemia; Z59.0 Homelessness; Z55.0 Illiteracy and low-level literacy; Z91.419 Personal history of unspecified adult abuse; I25.2 Old myocardial infarction; Z79.82 Long term (current) use of aspirin; Z79.84 Long term (current) use of oral hypoglycemic drugs; E78.5 Hyperlipidemia, unspecified; E11.65 Type 2 diabetes mellitus with hyperglycemia

== ENCOUNTER 2020-11-28 14:20 | Observation (INO) ==
[2020-11-28 15:32] LABS: Basophils # (auto) 0.07 K/uL (0-0.2); Basophils % (auto) 0.7 %; Eosinophils # (auto) 0.09 K/uL (0-0.5); Eosinophils % (auto) 0.9 %; Hematocrit (blood only) 47.4 % (42-52); Hemoglobin 16.8 g/dL (14.0-18.0); Immature Granulocytes # (auto) 0.05 K/uL (0.00-0.02); Immature Granulocytes % (auto) 0.5 %; Lymphocytes # (auto) 1.62 K/uL (1.2-3.4); Mean Corpuscular Hemoglobin 32.1 pg (25-34); Mean Corpuscular Hgb Conc 35.4 g/dL (32-36); Mean Corpuscular Volume 90.5 fL (80-100); Mean Platelet Volume 10.8 fL (7.4-10.4); Monocytes # (auto) 0.87 K/uL (0.11-0.59); Monocytes % (auto) 8.6 %; Neutrophils # (auto) 7.42 K/uL (1.4-6.5); Neutrophils % (auto) 73.3 %; Platelet Count 381 K/uL (130-400); RDW Coefficient of Variation 13.1 % (11.5-14.5); RDW Standard Deviation 42.9 fL (36.4-46.3); Red Blood Count 5.24 M/uL (4.7-6.1); White Blood Count 10.12 K/uL (4.8-10.8)
[2020-11-28 15:48] LABS: Alanine Aminotransferase 28 U/L (12-78); Albumin Level 3.9 gm/dl (3.4-5.0); Aspartate Aminotransferase 13 U/L (15-37); BUN Creatinine Ratio 13.1 (10-20); Blood Urea Nitrogen 13 mg/dl (7-18); Calcium 10.1 mg/dl (8.5-10.1); Carbon Dioxide 25 mmol/L (21-32); Chloride 103 mmol/L (98-107); Creatinine Clr Calc Pharmacy 77.7 ml/min; Est GFR (African American) 90.7 ml/min; Est GFR (Non-African American) 78.2 ml/min; Glucose 272 mg/dl (70-99); Potassium 3.9 mmol/L (3.5-5.1); Sodium 136 mmol/L (136-145)
[2020-11-28 15:59] LABS: Alkaline Phosphatase 357 U/L (45-117); Bilirubin,Total 0.6 mg/dl (0.2-1); Globulin 3.7 gm/dl (2.5-4.0); Total Protein 7.6 gm/dl (6.4-8.2); Troponin I < 0.015 ng/ml (0-0.045)
--- NOTE | 2020-11-28 16:06 | Emergency Department Note ---
History of Present Illness General Chief complaint: Syncope Stated complaint: FELL AND HURT KNEE AND NOSE Time Seen by Provider: 11/28/20 15:50 Source: patient History of Present Illness Provider complaint: Syncope with facial pain Onset (ago): hour(s) less than 1 Location: face Pain Consistency: + constant Maximum Pain Intensity: 4 Exacerbated By: + other (Worse when you touch his nose) Associated symptoms: + cough (2 days) and + syncope; no chest pain, no fever/chills, no headaches, no nausea/vomiting and no shortness of breath This is a 65-year-old male who presents with a syncopal episode prior to arrival. The patient was getting out of his truck to get a cup of coffee when he suddenly passed out. He states that he had no symptoms prior to passing out. He denies having any chest discomfort or pain, shortness of breath, palpitations, vomiting, diarrhea, abdominal pain, black or bloody stools or urinary symptoms. He does state that he has had cold symptoms for the past 2 days without fever. He states that he has been tested for times for Covid. When I tried to ask him further about questions he went into a long tangent about how he does not believe in Covid. He threatened to walk out of the hospital if we did a Covid test on him. His last tetanus shot was over 10 years ago. Home Medications Medication Instructions Recorded Confirmed Type atorvastatin [Lipitor] 40 mg PO QPM 10/09/18 11/28/20 History diclofenac sodium 75 mg PO BID 10/09/18 11/28/20 History lisinopril 20 mg PO DAILY 10/09/18 11/28/20 History metformin 1,000 mg PO BIDM 10/09/18 11/28/20 History pantoprazole [Protonix] 40 mg PO DAILY 10/09/18 11/28/20 History prazosin 1 mg PO QPM 10/09/18 11/28/20 History quetiapine [Seroquel] 150 mg PO QPM 10/09/18 11/28/20 History aspirin [Aspirin Low Dose] 81 mg PO DAILY 04/11/20 11/28/20 History bupropion HCl 300 mg PO DAILY 04/11/20 11/28/20 History metoprolol succinate 50 mg PO DAILY 04/11/20 11/28/20 History lyysjstx-dwl-HA-lycopen-lutein 1 tab PO DAILY 07/05/20 11/28/20 History [CertaVite Senior-Antioxidant] amlodipine 10 mg PO DAILY 08/09/20 11/28/20 History Allergies Allergy/AdvReac Type Severity Reaction Status Date / Time levofloxacin [From Levaquin] Allergy Mild Rash Verified 11/28/20 16:53 Past Med/Surg History Medical History (Updated 11/28/20 @ 22:10 by Marcus Macias MD) Acute hyperglycemia Acute hyperglycemia Acute hypokalemia DEMARIO (acute kidney injury) Anxiety Atrial fibrillation with rapid ventricular response Chest pain Chronic back pain Depression Diabetes mellitus, type 2 Diaphoresis GERD (gastroesophageal reflux disease) Hyperlipidemia Hypertension Noncompliance with medication regimen Poor historian pt lives alone; pt states he can not read or write but can sign own consents Transient ischemic attack (TIA) per record Surgical History History of cardiac cath 2011 History of colonoscopy History of open reduction and internal fixation (ORIF) procedure right ankle--hardware in place History of tooth extraction all teeth Family History Other Family history unknown Social History Smoking Status: Current every day smoker Tobacco Type: Cigarettes Cigarettes Per Day: 15; Smoking End Date: na; Second Hand Exposure: No; Do You Dip or Chew Tobacco: No; Tobacco Cessation Education Requested by Patient: No Hx Alcohol Use: No Hx Substance Use: No Preferred Language: Macedonian Communication Ability: Effective Monitoring And Evaluation Advisor Required: No Beliefs That Will Affect Care: None marital status: Single Current Living Situation: Alone Current Living Situation Comment: apartment Other Information That Helps Us Care for You: No Feels Safe at Home: Yes Safety Concerns: Feels Safe At This Time Assistive Devices: None Assistive Devices Comment: does not monitor blood glucose athome, reports does not have strips Review of Systems See HPI for pertinent positives & negatives. and A total of 10 systems reviewed and were otherwise negative Physical Exam Vital Signs Vital Signs - 24 hr 11/28/20 14:26 11/28/20 15:49 11/28/20 16:11 Temperature 36.5 C Temperature Source Oral Pulse Rate - Lying 57 L Pulse Rate - Sitting 61 Pulse Rate - Standing 68 Pulse Rate 59 L Pulse Rate [Radial] 60 Pulse Rhythm Regular Pulse Rhythm [Radial] Regular Pulse Strength Normal Pulse Strength [Radial] Normal Respiratory Rate 20 20 Respiratory Effort / Characteristics Non-Labored Spontaneous Non-Labored Spontaneous Respiratory Depth Normal Normal Respiratory Pattern Regular Regular Blood Pressure - Lying 177/81 H Blood Pressure - Sitting 159/75 H Blood Pressure- Standing 168/80 H Blood Pressure 194/77 H Blood Pressure [Right Arm] 183/80 H Blood Pressure Mean 116 Blood Pressure Mean [Right Arm] 114 Blood Pressure Position Sitting Blood Pressure Position [Right Arm] Pulse Oximetry 95 98 Oxygen Delivery Method Room Air Room Air Sepsis Recent Fever Within 48 Hours No Sepsis New/Unexplained Change in Mental Status No Sepsis Action Taken by Nursing No Action Required 11/28/20 16:15 11/28/20 17:54 Temperature Temperature Source Pulse Rate - Lying Pulse Rate - Sitting Pulse Rate - Standing Pulse Rate Pulse Rate [Radial] 67 58 L Pulse Rhythm Pulse Rhythm [Radial] Regular Regular Pulse Strength Pulse Strength [Radial] Normal Normal Respiratory Rate 18 20 Respiratory Effort / Characteristics Non-Labored Spontaneous Non-Labored Spontaneous Respiratory Depth Normal Normal Respiratory Pattern Regular Regular Blood Pressure - Lying Blood Pressure - Sitting Blood Pressure- Standing Blood Pressure Blood Pressure [Right Arm] 168/80 H 180/87 H Blood Pressure Mean Blood Pressure Mean [Right Arm] 109 118 Blood Pressure Position Blood Pressure Position [Right Arm] Standing Pulse Oximetry 98 100 Oxygen Delivery Method Room Air Room Air Sepsis Recent Fever Within 48 Hours Sepsis New/Unexplained Change in Mental Status Sepsis Action Taken by Nursing Constitutional: Vital signs reviewed. Eyes: Pupils are equal round reactive to light. Conjunctiva are noninjected. ENT: Pharynx is clear without erythema or exudate. Mucous membranes are moist. Abrasion to the nose without deformity. Tender to touch. No septal hematoma. No maxillary sinus tenderness. No midline tenderness to the cervical spine. Respiratory: Clear to auscultation bilaterally. Breath sounds are equal bilaterally. Cardiovascular: Regular rate and rhythm. No rubs or gallops. GI: Soft, nondistended and nontender. Bowel sounds are present. Musculoskeletal: No peripheral edema. Abrasion to the left knee with tenderness over the lower medial aspect. No tenderness to the hip, femur, tib-fib ankle or foot. Integumentary: No cyanosis. or jaundice. Neurologic: The patient is awake and alert x4. Cranial nerves II-XII are intact. Motor is 5 out of 5 all extremities. Sensation is intact to light touch all extremities. Normal speech. No pronator drift. Psychiatric: Normal affect. Not anxious appearing. Course Administered Medications Amlodipine Besylate (Amlodipine Besylate 5 Mg Tab) 10 mg PO DAILY ADELA Stop: 12/28/20 20:22 Last Admin: 11/28/20 21:31 Dose: 10 mg Documented by: [id number] Atorvastatin Calcium (Atorvastatin 40 Mg Tab) 40 mg PO QPM ADELA Stop: 12/28/20 20:59 Last Admin: 11/28/20 21:31 Dose: 40 mg Documented by: [id number] Diclofenac Sodium (Diclofenac Sodium 75 Mg Tabcr) 75 mg PO BID ADELA Stop: 12/28/20 20:59 Last Admin: 11/28/20 21:30 Dose: 75 mg Documented by: [id number] Heparin Sodium (Porcine) (Heparin Sod 5,000 Unit/0.5 Ml Vial) 5,000 units SQ Q8 ADELA Stop: 12/28/20 21:59 Last Admin: 11/28/20 21:32 Dose: 5,000 units Documented by: [id number] Sodium Chloride (Nss 1000ml) 1,000 mls @ 80 mls/hr IV .[id number] ADELA Stop: 11/29/20 08:52 Last Admin: 11/28/20 21:25 Dose: 80 mls/hr Documented by: [id number] Lisinopril (Lisinopril 20 Mg Tab) 20 mg PO DAILY ADELA Stop: 12/28/20 20:22 Last Admin: 11/28/20 21:31 Dose: 20 mg Documented by: [id number] Prazosin HCl (Prazosin Hcl 1 Mg Cap) 1 mg PO QPM ADELA Stop: 12/28/20 20:59 Last Admin: 11/28/20 21:31 Dose: 1 mg Documented by: [id number] Quetiapine Fumarate (Quetiapine Fumarate 100 Mg Tablet) 150 mg PO QPM ADELA Stop: 12/28/20 20:59 Last Admin: 11/28/20 21:30 Dose: 150 mg Documented by: [id number] Discontinued Medications Diphtheria/Pertussis/Tetanus Vacc (Diphtheria/Tetanus/Pertussis 0.5 Ml Syr/Vial) 0.5 ml IM .ONCE ONE Stop: 11/28/20 17:37 Last Admin: 11/28/20 17:51 Dose: 0.5 ml Documented by: [id number] Hydralazine HCl (Hydralazine Hcl 20 Mg/Ml Vial) 10 mg IV NOW STA Stop: 11/28/20 20:55 Last Admin: 11/28/20 21:18 Dose: 10 mg Documented by: [id number] Medical Decision Making Differential Diagnosis Syncope, orthostatic hypotension, metabolic derangement, dysrhythmia, anemia, ICH, concussion, nasal fracture Medical Records Attestation: I reviewed the patient's medical records. I did perform a limited focused review of portions of the patient's old chart on the electronic medical record. The patient was admitted to the hospital in May of last year for A. fib with RVR. Home Medications Current Medication List: was personally reviewed by me Laboratory Data Attestation: I reviewed the patient's lab results. Result diagrams: 11/28/20 15:13 11/28/20 15:13 Lab Results 11/28/20 11/28/20 11/28/20 Range/Units 15:13 15:13 17:10 WBC 10.12 (4.8-10.8) K/uL RBC 5.24 (4.7-6.1) M/uL Hgb 16.8 (14.0-18.0) g/dL Hct 47.4 (42-52) % MCV 90.5 (80-100) fL MCH 32.1 (25-34) pg MCHC 35.4 (32-36) g/dL RDW Std Deviation 42.9 (36.4-46.3) fL RDW Coeff of Cesar 13.1 (11.5-14.5) % Plt Count 381 (130-400) K/uL MPV 10.8 H (7.4-10.4) fL Immature Gran % (Auto) 0.5 % Neut % (Auto) 73.3 % Lymph % (Auto) 16.0 % Camp % (Auto) 8.6 % Eos % (Auto) 0.9 % Baso % (Auto) 0.7 % Neut # (Auto) 7.42 H (1.4-6.5) K/uL Lymph # (Auto) 1.62 (1.2-3.4) K/uL Camp # (Auto) 0.87 H (0.11-0.59) K/uL Eos # (Auto) 0.09 (0-0.5) K/uL Baso # (Auto) 0.07 (0-0.2) K/uL Immature Gran # (Auto) 0.05 H (0.00-0.02) K/uL Sodium 136 (136-145) mmol/L Potassium 3.9 (3.5-5.1) mmol/L Chloride 103 (98-107) mmol/L Carbon Dioxide 25 (21-32) mmol/L Anion Gap 8.0 (3-11) BUN 13 (7-18) mg/dl Creatinine 1.01 (0.6-1.4) mg/dl Est Cr Clr Drug Dosing 77.7 ml/min Est GFR ( Amer) 90.7 ml/min Est GFR (Non-Af Amer) 78.2 ml/min BUN/Creatinine Ratio 13.1 (10-20) Glucose 272 H (70-99) mg/dl Calcium 10.1 (8.5-10.1) mg/dl Total Bilirubin 0.6 (0.2-1) mg/dl AST 13 L (15-37) U/L ALT 28 (12-78) U/L Alkaline Phosphatase 357 H (45-117) U/L Troponin I < 0.015 (0-0.045) ng/ml Total Protein 7.6 (6.4-8.2) gm/dl Albumin 3.9 (3.4-5.0) gm/dl Globulin 3.7 (2.5-4.0) gm/dl Albumin/Globulin Ratio 1.0 (0.9-2) TSH 1.680 (0.300-4.500) uIu/ml Urine Color Yellow Urine Appearance Clear (Clear) Urine pH 7.0 (4.5-7.5) Ur Specific [place] 1.020 (1.000-1.030) Urine Protein 2+ H (Negative) Urine Glucose (UA) 3+ H (Negative) Urine Ketones Negative (Negative) Urine Blood Negative (Negative) Urine Nitrite Negative (Negative) Urine Bilirubin Negative (Negative) Urine Urobilinogen Negative (Negative) Ur Leukocyte Esterase Negative (Negative) Urine RBC 0-4 (0-4) /hpf Urine WBC 0-5 (0-5) /hpf Ur Epithelial Cells 0-5 (0-5) /lpf Urine Bacteria Negative (Negative) Imaging Data Radiologist's Impression: Knee X-Ray 11/28/20 15:10 LEFT KNEE 3 VIEWS HISTORY: fall. Left knee pain COMPARISON: None. FINDINGS: There is no fracture or dislocation. Mild prepatellar soft tissue swelling. No radiopaque foreign bodies. No knee effusion. Mild vascular calcifications. IMPRESSION: Mild prepatellar soft tissue swelling. No fractures within the left knee. ACT 112: Negative or not required by law. Electronically signed by: Terry Saini M.D. 11/28/2020 4:43 PM Chest X-Ray 11/28/20 15:12 XR chest 1V portable CLINICAL HISTORY: weakness COMPARISON STUDY: Chest radiograph September 23, 2020. FINDINGS: Lung volumes are normal. Lungs are clear. There is no pneumothorax or pleural effusion. Cardiac size is stable. Mediastinal contours are normal. There is no evidence for pulmonary edema. IMPRESSION: No acute cardiopulmonary findings. No significant change in appearance of the chest. ACT 112: Negative or not required by law. Electronically signed by: Dewey Tovar M.D. 11/28/2020 4:[address] 11/28/20 16:[address] DOSE: HISTORY: Neck pain. fall eval for injury TECHNIQUE: Multiaxial CT images of the cervical spine were performed and reformatted in the sagittal and coronal plane without the use of contrast. A dose lowering technique was utilized adhering to the principles of ALARA. COMPARISON: None. FINDINGS: No fractures. No subluxation. Prevertebral soft tissues and the C1-C2 interval are intact. No pneumothorax. IMPRESSION: No fractures within the cervical spine. ACT 112: Negative or not required by law. Electronically signed by: Terry Saini M.D. 11/28/2020 4:[address] 11/28/20 16:[address] WITHOUT CONTRAST CLINICAL HISTORY: Fall. Evaluate for fracture. COMPARISON STUDY: Head CT September 23, 2020. TECHNIQUE: A maxillofacial CT was performed without IV contrast. Coronal and sagittal reformats were viewed. Automated exposure control was utilized for the study. A dose lowering technique was utilized adhering to the principles of ALARA. FINDINGS: No acute facial fracture is identified. Alignment of the temporomandibular joints is anatomic. The globes are intact. No retrobulbar hematoma. No skull base fracture is noted. Orbital floors are intact. IMPRESSION: No acute facial fracture. ACT 112: Negative or not required by law. Electronically signed by: Dewey Tovar M.D. 11/28/2020 5:[address] 11/28/20 16:00 CT OF THE HEAD WITHOUT CONTRAST CLINICAL HISTORY: Fall. COMPARISON STUDY: Head CT September 23, 2020. TECHNIQUE: Helical axial images of the head were obtained without IV contrast. Automated exposure control was utilized for the study. A dose lowering technique was utilized adhering to the principles of ALARA. FINDINGS: No acute intracranial hemorrhage, midline shift or mass effect is present. The ventricular system is unremarkable. The basal cisterns are patent. No extra-axial collections are present. There are no findings to suggest acute dural sinus thrombosis or acute territorial infarct. No significant calvarial abnormalities are present. Visualized portions of the sinuses and mastoid air cells are clear. IMPRESSION: 1. No acute intracranial findings. Exam mildly compromised by motion artifact. 2. No calvarial fracture. ACT 112: Negative or not required by law. Electronically signed by: Dewey Tovar M.D. 11/28/2020 4:55 PM ECG Data Attestation: I personally reviewed and interpreted this ECG as follows: Indication: + syncope Rate (beats per minute): 58 Rhythm: + sinus bradycardia ECG ST segments: + T-wave inversions (V2 to V6 in 1 and aVL) ECG Findings: no PVCs Comparison ECG Date: from (August 09, 2020) Change: no significant change Head Trauma GCS Score: 15 MDM Narrative I did evaluate the patient as noted above. The patient is presenting with a syncopal episode with head injury and left knee injury. He has also had cold symptoms for the past 2 days. He was given an Adacel immunization IM. IV access was established. I did place an order for continuous cardiac monitoring. The monitor showed sinus bradycardia at a rate of 59 bpm. I did order and personally review the patient's 12-lead EKG as described above. He has T wave inversions as noted above. These are unchanged from his prior EKG. I did order and personally reviewed the images of the patient's chest x-ray and left knee x- rays as described above. He has no fracture to the left knee. Chest x-ray does not show pneumonia. I did order and review the patient's blood work as noted in the electronic medical record. CBC is unremarkable. Electrolytes are also unremarkable. Troponin is negative. Blood sugar is 272. Urinalysis does not demonstrate any evidence of UTI. I did order a CT of the cervical spine, facial bones and head. I did review the images myself as well as the radiology report as described above. There is no evidence of fracture or dislocation of the cervical spine or facial bones. No acute intracranial abnormality. I did discuss the test results with the patient. I did recommend hospitalization for further evaluation of his syncope. I did explain to him that we would need to do a Covid test if he was to be admitted as that is hospital policy. The patient became angry and stated that he would not have a Covid test. He states he does not believe in Covid. He states he has been tested over 4 times. He refuses one here. He started pointing his finger at me and stating that I was violating his constitutional rights. I did explain to him that we will not force him to have a Covid test but if he refuses he will will have to be placed in isolation. He was agreeable with this plan. I did discuss the case with the hospitalist and case picker. Impression & Plan Syncope, Acute hyperglycemia, Cough, Head injury, acute, Contusion of knee, left Discharge Plan Visit Data Chief Complaint: Syncope Stated Complaint: FELL AND HURT KNEE AND NOSE ED Provider: Marcus Mcaias Discharge Problem: Syncope, Acute hyperglycemia, Cough, Head injury, acute, Contusion of knee, left Patient Disposition: Admitted As Inpatient Discharge Instructions Interventions: ED Discharge Assessment Last Done: 11/28/20 20:06 Discharge Problem: Syncope Qualifiers: Syncope type: unspecified Qualified Code(s): R55 - Syncope and collapse Head injury, acute Qualifiers: Encounter type: initial encounter Qualified Code(s): S09.90XA - Unspecified injury of head, initial encounter Contusion of knee, left Qualifiers: Encounter type: initial encounter Qualified Code(s): S80.02XA - Contusion of left knee, initial encounter
--- NOTE | 2020-11-28 16:45 | XRay Report ---
LEFT KNEE 3 VIEWS HISTORY: fall. Left knee pain COMPARISON: None. FINDINGS: There is no fracture or dislocation. Mild prepatellar soft tissue swelling. No radiopaque f oreign bodies. No knee effusion. Mild vascular calcifications. IMPRESSION: Mild prepatellar soft tissue swelling. No fractures within the left knee. ACT 112: Negative or not required by law. Electronically signed by: Terry Saini M.D. 11/28/2020 4:43 PM
--- NOTE | 2020-11-28 16:52 | CT Scan Report ---
CERVICAL SPINE CT CT DOSE: HISTORY: Neck pain. fall eval for injury TECHNIQUE: Multiaxial CT images of the cervical spine were performed and reformatted in the sagittal and coronal plane without the use of contrast. A dose lowering technique was utilized adhering to th e principles of ALARA. COMPARISON: None. FINDINGS: No fractures. No subluxation. Prevertebral soft tissues and the C1-C2 interval are intact. No pneumothorax. IMPRESSION: No fractures within the cervical spine. ACT 112: Negative or not required by law. Electronically signed by: Terry Saini M.D. 11/28/2020 4:50 PM
--- NOTE | 2020-11-28 16:54 | XRay Report ---
XR chest 1V portable CLINICAL HISTORY: weakness COMPARISON STUDY: Chest radiograph September 23, 2020. FINDINGS: Lung volumes are normal. Lungs are clear. There is no pneumothorax or pleural effusion. Car diac size is stable. Mediastinal contours are normal. There is no evidence for pulmonary edema. IMPRESSION: No acute cardiopulmonary findings. No significant change in appearance of the chest. ACT 112: Negative or not required by law. Electronically signed by: Dewey Tovar M.D. 11/28/2020 4:53 PM
--- NOTE | 2020-11-28 16:57 | CT Scan Report ---
CT OF THE HEAD WITHOUT CONTRAST CLINICAL HISTORY: Fall. COMPARISON STUDY: Head CT September 23, 2020. TECHNIQUE: Helical axial images of the head were obtained without IV contrast. Automated exposure con trol was utilized for the study. A dose lowering technique was utilized adhering to the principles o f ALARA. FINDINGS: No acute intracranial hemorrhage, midline shift or mass effect is present. The ventricular system is unremarkable. The basal cisterns are patent. No extra-axial collections are present. There are no findings to suggest acute dural sinus thrombosis or acute territorial infarct. No significant calvarial abnormalities are present. Visualized portions of the sinuses and mastoid air cells are adri ar. IMPRESSION: 1. No acute intracranial findings. Exam mildly compromised by motion artifact. 2. No calvarial fracture. ACT 112: Negative or not required by law. Electronically signed by: Dewey Tovar M.D. 11/28/2020 4:55 PM
--- NOTE | 2020-11-28 17:05 | CT Scan Report ---
MAXILLOFACIAL CT WITHOUT CONTRAST CLINICAL HISTORY: Fall. Evaluate for fracture. COMPARISON STUDY: Head CT September 23, 2020. TECHNIQUE: A maxillofacial CT was performed without IV contrast. Coronal and sagittal reformats were viewed. Automated exposure control was utilized for the study. A dose lowering technique was utiliz ed adhering to the principles of ALARA. FINDINGS: No acute facial fracture is identified. Alignment of the temporomandibular joints is anatom ic. The globes are intact. No retrobulbar hematoma. No skull base fracture is noted. Orbital floors a re intact. IMPRESSION: No acute facial fracture. ACT 112: Negative or not required by law. Electronically signed by: Dewey Tovar M.D. 11/28/2020 5:04 PM
[2020-11-28 17:24] LABS: Appearance Urine Clear (Clear); Bilirubin Urine Negative (Negative); Blood Urine Negative (Negative); Color Urine Yellow; Glucose Urine UA 3+ (Negative); Ketones Urine Negative (Negative); Leukocyte Esterase Urine Negative (Negative); Nitrite Urine Negative (Negative); Protein Urine 2+ (Negative); Urobilinogen Urine Negative (Negative)
[2020-11-28] MEDS ORDERED: DIPHTHERIA/TETANUS/PERTUSSIS 0.5 ML SYR/VIAL IM ONE (17:36)
[2020-11-28 17:49] LABS: Bacteria Urine Negative (Negative); Epithelial Cell Urine 0-5 /lpf (0-5); RBC Urine 0-4 /hpf (0-4); WBC Urine 0-5 /hpf (0-5)
--- NOTE | 2020-11-28 20:06 | History & Physical Report ---
Date of Service November 28, 2020 History of Present Illness Primary Care Provider: NO PCP Allergies Allergy/AdvReac Type Severity Reaction Status Date / Time levofloxacin [From Levaquin] Allergy Mild Rash Verified 11/28/20 16:53 Home Medications Medication Instructions Recorded Confirmed Type atorvastatin [Lipitor] 40 mg PO QPM 10/09/18 11/28/20 History diclofenac sodium 75 mg PO BID 10/09/18 11/28/20 History lisinopril 20 mg PO DAILY 10/09/18 11/28/20 History metformin 1,000 mg PO BIDM 10/09/18 11/28/20 History pantoprazole [Protonix] 40 mg PO DAILY 10/09/18 11/28/20 History prazosin 1 mg PO QPM 10/09/18 11/28/20 History quetiapine [Seroquel] 150 mg PO QPM 10/09/18 11/28/20 History aspirin [Aspirin Low Dose] 81 mg PO DAILY 04/11/20 11/28/20 History bupropion HCl 300 mg PO DAILY 04/11/20 11/28/20 History metoprolol succinate 50 mg PO DAILY 04/11/20 11/28/20 History skkgdqdu-hcp-IQ-lycopen-lutein 1 tab PO DAILY 07/05/20 11/28/20 History [CertaVite Senior-Antioxidant] amlodipine 10 mg PO DAILY 08/09/20 11/28/20 History Past Med/Surg History Medical History Acute hyperglycemia Acute hyperglycemia Acute hypokalemia DEMARIO (acute kidney injury) Anxiety Atrial fibrillation with rapid ventricular response Chest pain Chronic back pain Depression Diabetes mellitus, type 2 Diaphoresis GERD (gastroesophageal reflux disease) Hyperlipidemia Hypertension Noncompliance with medication regimen Poor historian pt lives alone; pt states he can not read or write but can sign own consents Transient ischemic attack (TIA) per record Surgical History History of cardiac cath 2011 History of colonoscopy History of open reduction and internal fixation (ORIF) procedure right ankle--hardware in place History of tooth extraction all teeth Family History Other Family history unknown Social History Smoking Status: Never smoker Tobacco Type: Cigarettes Cigarettes Per Day: 20; Second Hand Exposure: No; Hx Alcohol Use: No Hx Substance Use: No Preferred Language: Armenian Communication Ability: Effective Stripping Shovel Operator Required: No Beliefs That Will Affect Care: None marital status: Single Current Living Situation: Homeless Current Living Situation Comment: [facility] Feels Safe at Home: Yes Assistive Devices: None Results & Data Results & Data ([facility]) Vital Signs (Past 12 Hours) Vital Signs Temp Pulse Pulse Resp BP BP Pulse Ox 11/28/20 17:54 58 L 20 180/87 H 100 11/28/20 16:15 67 18 168/80 H 98 11/28/20 15:49 60 20 183/80 H 98 11/28/20 14:26 36.5 C 59 L 20 194/77 H 95 Code Status & VTE Plan VTE Prophylaxis Plan VTE Prophylaxis will be ordered: Yes
[2020-11-28] MEDS ORDERED: ALUMINUM/MAGNESIUM SUSP 30 ML UDC PO PRN (20:23)
[2020-11-28] MEDS ORDERED: DEXTROSE 50% 50 ML SYRINGE IV PRN (20:23)
[2020-11-28] MEDS ORDERED: GLUCOSE 40% GEL 15 GM TUBE PO PRN (20:23)
[2020-11-28] MEDS ORDERED: GLUCOSE 10 TABS/TUBE PO PRN (20:23)
[2020-11-28] MEDS ORDERED: POLYETHYLENE (MIRALAX) 17 GM PACK PO PRN (20:23)
[2020-11-28] MEDS ORDERED: ZOLPIDEM TARTRATE 5 MG TAB PO PRN (20:23)
[2020-11-28] MEDS ORDERED: ONDANSETRON INJ 2 MG/ML 2 ML VIAL IV PRN (20:23)
[2020-11-28] MEDS ORDERED: MAGNESIUM HYDROXIDE SUSP 30 ML UDC PO PRN (20:23)
[2020-11-28] MEDS ORDERED: SODIUM CHLORIDE 0.9% 1000ML 1,000 ML IV SCH (20:23)
[2020-11-28] MEDS ORDERED: GLUCAGON FOR INJ 1 MG VIAL SQ PRN (20:23)
[2020-11-28] MEDS ORDERED: CARBOHYDRATES FOR HYPOGLYCEMIA PO PRN (20:23)
[2020-11-28] MEDS ORDERED: ACETAMINOPHEN 325 MG TAB PO PRN (20:23)
[2020-11-28] MEDS ORDERED: hydrALAZINE HCL 20 MG/ML VIAL IV STA (20:54)
[2020-11-28] MEDS ORDERED: hydrALAZINE HCL 20 MG/ML VIAL IV PRN (20:54)
[2020-11-28] MEDS ORDERED: ATORVASTATIN 40 MG TAB PO SCH (21:00)
[2020-11-28] MEDS ORDERED: QUEtiapine FUMARATE 100 MG TABLET PO SCH (21:00)
[2020-11-28] MEDS ORDERED: PRAZOSIN HCL 1 MG CAP PO SCH (21:00)
[2020-11-28] MEDS: DICLOFENAC SODIUM 75 MG TABCR PO SCH (21:30)
[2020-11-28] MEDS: lisinopril 20 MG TAB PO SCH (21:31)
[2020-11-28] MEDS: amLODIPine BESYLATE 5 MG TAB PO SCH (21:31)
[2020-11-28] MEDS: HEPARIN SOD 5,000 UNIT/0.5 ML VIAL SQ SCH (21:32)
[2020-11-28] MEDS: INSULIN ASPART 100 UNITS/ML 3 ML PEN SC SCH (22:13)
[2020-11-29] MEDS: HEPARIN SOD 5,000 UNIT/0.5 ML VIAL SQ SCH (06:13)
--- NOTE | 2020-11-29 07:04 | Ultrasound Report ---
US carotid doppler BI CLINICAL HISTORY: 65 years-old Male with syncope. COMPARISON: Head CT of same day TECHNIQUE: Multiple real time sonographic images of the carotid bifurcations were obtained assessing mukherjee scale, color Doppler and spectral wave form appearance FINDINGS: RIGHT CAROTID: The peak systolic velocity measured within the right ICA is74.9 cm/sec. The end owens tolic velocity measured 21.9 cm/sec. The ICA to CCA ratio measured 0.9 which correlates with a steno sis of 0-50%. There is mild to moderate atherosclerotic plaque of the right carotid bulb and proximal right ICA. Peak systolic velocity within the right external carotid artery measures 214 cm/s. LEFT CAROTID: The peak systolic velocity measured within the left ICA is67 cm/sec. The end diastoli c velocity measured 14.4 cm/sec. The ICA to CCA ratio measured 0.6 which correlates with a stenosis o f 0-50%. There is mild atherosclerotic plaque of the left carotid bulb and proximal left ICA. Peak sy stolic velocity within the left external carotid artery measures 172 cm/s. There is normal antegrade vertebral flow bilaterally. Blood pressure on the right is measured at 126/ 60 and on the left is measured at 110/46. IMPRESSION: 1. Atherosclerotic plaque of the bilateral carotid bulbs and proximal internal carotid arteries with out hemodynamically significant stenosis. 2. Normal antegrade vertebral flow bilaterally. ACT 112: Negative or not required by law. The above report was generated using voice recognition software. It may contain grammatical, syntax o r spelling errors. Electronically signed by: Rian Jain M.D. 11/29/2020 7:03 AM
[2020-11-29 07:10] LABS: Estimated Average Glucose 240 mg/dl
[2020-11-29] MEDS: DICLOFENAC SODIUM 75 MG TABCR PO SCH (08:17)
[2020-11-29] MEDS: lisinopril 20 MG TAB PO SCH (08:17)
[2020-11-29] MEDS: amLODIPine BESYLATE 5 MG TAB PO SCH (08:17)
[2020-11-29] MEDS: INSULIN ASPART 100 UNITS/ML 3 ML PEN SC SCH ×2 (08:18→11:58)
[2020-11-29] MEDS ORDERED: ASPIRIN 81 MG ECTAB PO SCH (09:00)
[2020-11-29] MEDS ORDERED: buPROPion XL 300 MG TABCR PO SCH (09:00)
[2020-11-29] MEDS ORDERED: CEROVITE ADV FORMULA TAB PO SCH (09:00)
[2020-11-29] MEDS ORDERED: PANTOprazole 40 MG TAB PO SCH (09:00)
[2020-11-29] MEDS ORDERED: METOPROLOL SUCC 50MG EXT REL TAB PO SCH (09:00)
--- NOTE | 2020-11-29 10:21 | Electroencephalogram ---
EEG Procedure Note Date of Service November 29, 2020 Start / End Times Start Time: 528 End Time: 548 Referring Physician Anum Erickson MD History syncope vs seizure Home Medication List Medication Instructions Recorded Confirmed Type atorvastatin [Lipitor] 40 mg PO QPM 10/09/18 11/28/20 History diclofenac sodium 75 mg PO BID 10/09/18 11/28/20 History lisinopril 20 mg PO DAILY 10/09/18 11/28/20 History metformin 1,000 mg PO BIDM 10/09/18 11/28/20 History pantoprazole [Protonix] 40 mg PO DAILY 10/09/18 11/28/20 History prazosin 1 mg PO QPM 10/09/18 11/28/20 History quetiapine [Seroquel] 150 mg PO QPM 10/09/18 11/28/20 History aspirin [Aspirin Low Dose] 81 mg PO DAILY 04/11/20 11/28/20 History bupropion HCl 300 mg PO DAILY 04/11/20 11/28/20 History metoprolol succinate 50 mg PO DAILY 04/11/20 11/28/20 History dypydscw-gmy-WD-lycopen-lutein 1 tab PO DAILY 07/05/20 11/28/20 History [CertaVite Senior-Antioxidant] amlodipine 10 mg PO DAILY 08/09/20 11/28/20 History Inpatient Medication List Amlodipine Besylate (Amlodipine Besylate 5 Mg Tab) 10 mg PO DAILY [facility] Stop: 12/28/20 20:22 Last Admin: 11/29/20 08:17 Dose: 10 mg Documented by: [id number] Admin: 11/28/20 21:31 Dose: 10 mg Documented by: [id number] Aspirin (Aspirin 81 Mg Ectab) 81 mg PO DAILY [facility] Stop: 12/29/20 08:59 Last Admin: 11/29/20 08:17 Dose: 81 mg Documented by: [id number] Atorvastatin Calcium (Atorvastatin 40 Mg Tab) 40 mg PO QPM [facility] Stop: 12/28/20 20:59 Last Admin: 11/28/20 21:31 Dose: 40 mg Documented by: [id number] Bupropion HCl (Bupropion Xl 300 Mg Tabcr) 300 mg PO DAILY [facility] Stop: 12/29/20 08:59 Last Admin: 11/29/20 08:17 Dose: 300 mg Documented by: [id number] Diclofenac Sodium (Diclofenac Sodium 75 Mg Tabcr) 75 mg PO BID ADELA Stop: 12/28/20 20:59 Last Admin: 11/29/20 08:17 Dose: 75 mg Documented by: [id number] Admin: 11/28/20 21:30 Dose: 75 mg Documented by: [id number] Heparin Sodium (Porcine) (Heparin Sod 5,000 Unit/0.5 Ml Vial) 5,000 units SQ Q8 A[facility] Stop: 12/28/20 21:59 Last Admin: 11/29/20 06:13 Dose: 5,000 units Documented by: [id number] Admin: 11/28/20 21:32 Dose: 5,000 units Documented by: [id number] Insulin Aspart (Insulin Aspart 100 Units/Ml 3 Ml Pen) 0 units SC ACHS ADELA Stop: 12/28/20 20:59 Last Admin: 11/29/20 08:18 Dose: 7 units Documented by: [id number] Cosigned by: [id number] Admin: 11/28/20 22:13 Dose: 2 units Documented by: [id number] Cosigned by: [id number] Lisinopril (Lisinopril 20 Mg Tab) 20 mg PO DAILY ADELA Stop: 12/28/20 20:22 Last Admin: 11/29/20 08:17 Dose: 20 mg Documented by: [id number] Admin: 11/28/20 21:31 Dose: 20 mg Documented by: [id number] Metoprolol Succinate (Metoprolol Succ 50mg Ext Rel Tab) 50 mg PO DAILY A[facility]LA Stop: 12/29/20 08:59 Last Admin: 11/29/20 08:17 Dose: 50 mg Documented by: [id number] Multivitamins/Minerals (Cerovite Adv Formula Tab) 1 tab PO DAILY A[facility]LA Stop: 12/29/20 08:59 Last Admin: 11/29/20 08:17 Dose: 1 tab Documented by: [id number] Pantoprazole Sodium (Pantoprazole 40 Mg Tab) 40 mg PO DAILY A[facility]LA Stop: 12/29/20 08:59 Last Admin: 11/29/20 08:17 Dose: 40 mg Documented by: [id number] Prazosin HCl (Prazosin Hcl 1 Mg Cap) 1 mg PO QPM ADELA Stop: 12/28/20 20:59 Last Admin: 11/28/20 21:31 Dose: 1 mg Documented by: [id number] Quetiapine Fumarate (Quetiapine Fumarate 100 Mg Tablet) 150 mg PO QPM A[facility]LA Stop: 12/28/20 20:59 Last Admin: 11/28/20 21:30 Dose: 150 mg Documented by: [id number] Discontinued Medications Diphtheria/Pertussis/Tetanus Vacc (Diphtheria/Tetanus/Pertussis 0.5 Ml Syr/Vial) 0.5 ml IM .ONCE ONE Stop: 11/28/20 17:37 Last Admin: 11/28/20 17:51 Dose: 0.5 ml Documented by: [id number] Hydralazine HCl (Hydralazine Hcl 20 Mg/Ml Vial) 10 mg IV NOW STA Stop: 11/28/20 20:55 Last Admin: 11/28/20 21:18 Dose: 10 mg Documented by: [id number] Sodium Chloride (Nss 1000ml) 1,000 mls @ 80 mls/hr IV .[id number] [facility] Stop: 11/29/20 08:52 Last Admin: 11/28/20 21:25 Dose: 80 mls/hr Documented by: [id number] Description This is a 21 electrode EEG with a single channel dedicated to limited EKG. The electrodes were placed in accordance with the International 10-20 system. This EEG was done as a bedside recording and is of good technical quality with few or no muscle movement artifacts. Simultaneous video analysis of patient movement and behavior was obtained. Photic stimulation was performed. Drowsiness light sleep was not obtained ID conditions there is a normal bilaterally symmetrical posterior head region maximal background rhythm in the alpha range of up to 30 V maximal amplitude and up to 10 Hz maximum frequency. Centrally there is symmetrical theta activity of modest voltage. Beta activity seen symmetrically and bifrontally Stimulation provokes a minimal driving response No seizure activity is seen and no potentially epileptiform discharges are noted Interpretation Is a normal EEG during wakefulness Clinical Correlation This EEG is normal and reveals no evidence for focal generalized slowing, and more importantly no evidence for potentially epileptiform activity Aristides Turner MD
--- NOTE | 2020-11-29 12:14 | Electrocardiogram Report ---
Test Reason : Blood Pressure : / mmHG Vent. Rate : 058 BPM Atrial Rate : 058 BPM P-R Int : 174 ms QRS Dur : 080 ms QT Int : 422 ms P-R-T Axes : 021 -02 136 degrees QTc Int : 414 ms Sinus bradycardia Possible Left atrial enlargement Left ventricular hypertrophy with repolarization abnormality Abnormal ECG When compared with ECG of 23-SEP-2020 12:21, ST now depressed in Lateral leads T wave inversion more evident in Anterior leads Confirmed by Michael Lomas ([id number]) on 11/29/2020 12:13:59 PM Referred By: REFERRED SELF Confirmed By:Bladimir Lomas
== END 2020-11-29 14:10 | disposition left against medical advice (07) ==
LOC: ED 14:20 → 2S 14:20 → 2E 11-29 00:05

== ENCOUNTER 2022-02-17 11:18 | Observation (INO) ==
[2022-02-17 12:12] LABS: Basophils # (auto) 0.06 K/uL (0-0.2); Basophils % (auto) 0.9 %; Eosinophils # (auto) 0.16 K/uL (0-0.50); Eosinophils % (auto) 2.3 %; Hematocrit (blood only) 40.5 % (40.1-51.0); Hemoglobin 13.9 g/dl (14.0-18.0); Immature Granulocytes # (auto) 0.03 K/uL (0.00-0.02); Immature Granulocytes % (auto) 0.4 %; Lymphocytes # (auto) 1.62 K/uL (1.2-3.4); Lymphocytes % (auto) 23.5 %; Mean Corpuscular Hemoglobin 32.7 pg (25.0-34.0); Mean Corpuscular Hgb Conc 34.3 g/dL (32.0-36.0); Mean Corpuscular Volume 95.3 fL (80.0-100.0); Mean Platelet Volume 10.2 fL (9.4-12.4); Monocytes # (auto) 0.55 K/uL (0.24-0.82); Neutrophils # (auto) 4.48 K/uL (1.4-6.5); Neutrophils % (auto) 64.9 %; Platelet Count 414 K/uL (130-400); RDW Coefficient of Variation 13.9 % (11.5-14.5); RDW Standard Deviation 48.8 fL (36.4-46.3); Red Blood Count 4.25 M/uL (4.63-6.08)
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
[2022-02-17 12:23] LABS: Albumin Globulin Ratio 1.5 (0.9-2); BUN Creatinine Ratio 16.7 (10-20); Bilirubin,Total 0.5 mg/dl (0.2-1.0); Calcium 8.9 mg/dl (8.5-10.1); Creatinine Clr Calc Pharmacy 51.1 ml/min; Est GFR (African American) 58.6 ml/min; Est GFR (Non-African American) 50.6 ml/min; Globulin 2.7 gm/dl (2.5-4.0); Potassium 4.1 mmol/L (3.5-5.1); Total Protein 6.7 gm/dl (6.0-8.3)
[2022-02-17 12:28] LABS: Appearance Urine Clear (Clear); Bilirubin Urine Negative (Negative); Blood Urine Negative (Negative); Color Urine Yellow; Glucose Urine UA 3+ (Negative); Ketones Urine Negative (Negative); Leukocyte Esterase Urine Negative (Negative); Nitrite Urine Negative (Negative); Protein Urine Negative (Negative); Specific Gravity Urine 1.017 (1.000-1.030); Troponin I High Sensitivity 11.5 pg/ml (0-20); Urobilinogen Urine Negative (Negative); pH Urine 6.5 (4.5-7.5)
--- NOTE | 2022-02-17 12:38 | XRay Report ---
XR chest 1V portable HISTORY: weakness COMPARISON: Chest 03/20/2021. FINDINGS: The cardiac silhouette remains mildly enlarged. Calcifications again noted within the aorti c knob. There is mild interstitial thickening which is likely chronic. No new focal lung consolidatio ns to suggest pneumonia. No evidence for pulmonary edema. A punctate calcified granuloma within the p eriphery of the right upper lobe, unchanged. IMPRESSION: No significant change compared to the prior study. No acute process. ACT 112: Negative or not required by law. Electronically signed by: Terry Saini M.D. 02/17/2022 12:37 PM
--- NOTE | 2022-02-17 12:45 | CT Scan Report ---
HEAD CT NONCONTRAST CT DOSE: HISTORY: fall TECHNIQUE: Multiaxial CT images of the head were performed without the use of intravenous contrast. A utomated exposure control was utilized for this study. A dose lowering technique was utilized adheri ng to the principles of ALARA. Comparison: Head CT 03/20/2021. Findings: Mild mucosal thickening within the right maxillary sinus. The mastoid air cells are clear. The calvarium and skull base are intact. There is no mass, hematoma, midline shift, acute infarct. Wh ite matter hypodensity is nonspecific but suggestive of microvascular ischemic change. The ventricles and sulci demonstrate mild age-related involutional changes. There are old punctate periventricular infarcts noted. Impression: No acute intracranial abnormality. ACT 112: Negative or not required by law. Electronically signed by: Terry Saini M.D. 02/17/2022 12:43 PM
--- NOTE | 2022-02-17 12:47 | CT Scan Report ---
CERVICAL SPINE CT CT DOSE: 2000.47 mGy.cm HISTORY: fall TECHNIQUE: Multiaxial CT images of the cervical spine were performed and reformatted in the sagittal and coronal plane without the use of contrast. A dose lowering technique was utilized adhering to th e principles of ALARA. COMPARISON: Cervical spine CT 11/28/2020. FINDINGS: No fractures. No subluxation. Prevertebral soft tissues and the C1-C2 interval are intact. No pneumothorax. IMPRESSION: No fractures within the cervical spine. ACT 112: Negative or not required by law. Electronically signed by: Terry Saini M.D. 02/17/2022 12:46 PM
--- NOTE | 2022-02-17 12:54 | CT Scan Report ---
LUMBAR SPINE CT CT DOSE: HISTORY: numbness in legs TECHNIQUE: Multiaxial CT images of the lumbar spine were performed and reformatted in the sagittal an d coronal plane without the use of contrast. A dose lowering technique was utilized adhering to the principles of ALARA. COMPARISON: None. FINDINGS: No fracture or subluxation within the lumbar spine. Mild disc space narrowing at L4-5 and L 5-S1. There are mild to moderate facet degenerative changes within the lower lumbar spine. Moderate t o severe central canal narrowing at L4-5 due to broad-based posterior disc bulge and ligamentum flavu m and facet hypertrophy. Paraspinal soft tissues are unremarkable. Calcified plaque within the normal caliber abdominal aorta. IMPRESSION: 1. No fracture or subluxation within the lumbar spine. 2. Degenerative changes as described above most pronounced at the L4-5 level which demonstrates moder ate to severe central canal narrowing. ACT 112: Negative or not required by law. Electronically signed by: Terry Saini M.D. 02/17/2022 12:52 PM
--- NOTE | 2022-02-17 13:54 | History & Physical Report ---
Date of Service February 17, 2022 History of Present Illness Primary Care Provider: Katie Davis PA-C Allergies Allergy/AdvReac Type Severity Reaction Status Date / Time levofloxacin [From Levaquin] Allergy Mild Rash Verified 01/30/22 10:38 Home Medications Medication Instructions Recorded Confirmed Type atorvastatin 40 mg tablet (Lipitor) 40 mg PO HS 10/09/18 01/19/22 History diclofenac sodium 75 mg 75 mg PO HS 10/09/18 01/19/22 History tablet,delayed release metformin 1,000 mg tablet 1,000 mg PO HS 10/09/18 01/19/22 History pantoprazole 40 mg tablet,delayed 40 mg PO QAM 10/09/18 01/19/22 History release (Protonix) prazosin 1 mg capsule 1 mg PO HS 10/09/18 01/19/22 History quetiapine 100 mg tablet (Seroquel) 200 mg PO HS 10/09/18 01/19/22 History aspirin 81 mg tablet,delayed 81 mg PO QAM 04/11/20 01/19/22 History release (Kali Low Dose Aspirin) bupropion HCl 300 mg 24 hr tablet, 300 mg PO QAM 04/11/20 01/19/22 History extended release metoprolol succinate 50 mg 50 mg PO QAM 04/11/20 01/19/22 History tablet,extended release 24 hr qitkxchu-ajz-sqkew acid 0.4 1 tab PO QAM 07/05/20 01/19/22 History mg-lycopene 300 mcg-lutein 250 mcg tablet (CertaVite Senior) amlodipine 10 mg tablet 10 mg PO HS 08/09/20 01/19/22 History blood sugar diagnostic (OneTouch #50 ea 12/02/20 01/19/22 Rx Ultra Blue Test Strip) lancets 33 gauge (OneTouch Delica #100 ea 12/02/20 01/19/22 Rx Lancets) Past Med/Surg History Medical History DEMARIO (acute kidney injury) "doesn't remember having one" Anxiety Atrial fibrillation with rapid ventricular response pt unaware of details> reports no pacer > no cardio Bipolar disorder Chronic back pain COPD (chronic obstructive pulmonary disease) no inhalers per pt > feels is controlled Depression Diabetes mellitus, type 2 GERD (gastroesophageal reflux disease) Hyperlipidemia Hypertension Illiterate Noncompliance with medication regimen " I take it if i think of it" Meds in blister pack from [facility] [phone] Poor historian pt lives alone; pt states he can not read or write but can sign own consents Transient ischemic attack (TIA) per record Surgical History History of cardiac cath 2011, no stents "hasn't been to a heart dr in awhile and i don't remember their name" History of colonoscopy History of left cataract extraction History of open reduction and internal fixation (ORIF) procedure right ankle--hardware in place History of tooth extraction all teeth Family History Other Family history unknown Social History Smoking Status: Heavy tobacco smoker Tobacco Type: Cigarettes Cigarettes Per Day: 1-1 1/2pks per day; Second Hand Exposure: No; Hx Alcohol Use: No Hx Substance Use: No Preferred Language: Central African Communication Ability: Effective [employer] Required: No Beliefs That Will Affect Care: None marital status: Single Current Living Situation: Alone Current Living Situation Comment: apartment Feels Safe at Home: Yes Assistive Devices: Denture - Upper and Denture - Lower Results & Data Results & Data ([facility]) Vital Signs (Past 12 Hours) Vital Signs Temp Pulse Resp BP Pulse Ox O2 Del Method 02/17/22 12:06 97 Room Air 02/17/22 11:25 36.7 C 62 18 161/81 H 98 Room Air
[2022-02-17] MEDS ORDERED: DEXTROSE 50% 50 ML SYRINGE IV PRN (14:01)
[2022-02-17] MEDS ORDERED: GLUCOSE 10 TAB/TUBE PO PRN (14:01)
[2022-02-17] MEDS ORDERED: GLUCAGON FOR INJ 1 MG VIAL SQ PRN (14:01)
[2022-02-17] MEDS ORDERED: GLUCOSE 40% GEL 15 GM TUBE PO PRN (14:01)
[2022-02-17] MEDS ORDERED: CARBOHYDRATES FOR HYPOGLYCEMIA PO PRN (14:01)
--- NOTE | 2022-02-17 14:18 | History & Physical Report ---
Date of Service February 17, 2022 Assessment & Plan (1) Fall: (2) Bilateral leg numbness: (3) DM2 (diabetes mellitus, type 2): (4) Bipolar disorder: (5) GERD (gastroesophageal reflux disease): (6) CKD (chronic kidney disease) stage 3, GFR 30-59 ml/min: Plan 66 year old male who presented to the ED with fall after having numbness from the waist down CT lumbar spine 02/17/22 1. No fracture or subluxation within the lumbar spine. 2. Degenerative changes as described above most pronounced at the L4-5 level which demonstrates moderate to severe central canal narrowing. Prior MRI L spine 12/2016 1. Degenerative disc disease with annular bulging at L5-S1 with associated facet hypertrophy resulting in [id number] left-sided and mild right-sided foraminal narrowing. 2. No disc herniation observed within the lumbar spine. No central canal stenosis identified. Fall with bilateral leg numbness- CT lumbar spine and prior MRI L spine reviewed as above. Strength and sensation intact on exam, SLRT negative, no spine tenderness. No red flag signs. It is possible his lumbar spine disease has progressed causing the symptoms. Will check MRI lumbar spine, B12 level, A1c, CK. Might need ortho/neuro eval based on MRI results. Orthostatics, PT/OT eval. DM-2, controlled- OP POC A1c 7.4. Holding home empagliflozin and metformin. Check A1c. Will start on lantus, SSI. Essential HTN- continue amlodipine, toprol, prazosin CKD3a- Cr mildly elevated from baseline. Will give gentle IVF and recheck in am. Hold his home diclofenac. Recommend discontinuation at discharge Bipolar disorder- on welbutrin. His med list shows seroquel but his pill box at bedside doesnot contain seroquel and he states he does not take any other medications other than the one in the pillbox. DVT ppx- sc heparin Dispo- Observation on tele History of Present Illness Chief Complaint: fall, bilateral leg numnbess Primary Care Provider: Katie Davis PA-C 66 year old male with h/o DM-2, bipolar disorder, HTN, GERD who presented to the ED with fall with bilateral leg numbness. States it started 2 weeks ago with bilateral leg numbness from waist down and he had few falls since then, the last one being today. States he feels like having a staggering or drunken gait although he does not drink. Denies any syncopal episodes. Denies any weakness or pin and needle sensation. Denies any bowel bladder incontinence or perineal paresthesia. Denies any trauma preceding this. Denies any back pain. States his leg numbness has been the same since it started, denies any exacerbating or relieving factors. Denies any fever or chills. Smokes 1.5 pack a day. Does not drink alcohol. He used to see pain management for epidural back injections but have not followed them in a while. He is not a great historian. In the ED, he was afebrile and hemodynamically stable. Lying comfortably in bed, not in distress. Labs and imaging reviewed. I saw and examined the patient at bedside. Allergies Allergy/AdvReac Type Severity Reaction Status Date / Time levofloxacin [From Levaquin] Allergy Mild Rash Verified 01/30/22 10:38 Home Medications Medication Instructions Recorded Confirmed Type atorvastatin 40 mg tablet (Lipitor) 80 mg PO HS 10/09/18 01/19/22 History diclofenac sodium 75 mg 75 mg PO BID 10/09/18 01/19/22 History tablet,delayed release metformin 1,000 mg tablet 1,000 mg PO BIDWMEAL 10/09/18 01/19/22 History pantoprazole 40 mg tablet,delayed 40 mg PO QAM 10/09/18 01/19/22 History release (Protonix) prazosin 1 mg capsule 1 mg PO HS 10/09/18 01/19/22 History aspirin 81 mg tablet,delayed 81 mg PO QAM 04/11/20 01/19/22 History release (Kali Low Dose Aspirin) bupropion HCl 300 mg 24 hr tablet, 300 mg PO QAM 04/11/20 01/19/22 History extended release metoprolol succinate 50 mg 50 mg PO QAM 04/11/20 01/19/22 History tablet,extended release 24 hr ptytqcel-lih-rgkxp acid 0.4 1 tab PO QAM 07/05/20 01/19/22 History mg-lycopene 300 mcg-lutein 250 mcg tablet (CertaVite Senior) amlodipine 10 mg tablet 5 mg PO HS 08/09/20 01/19/22 History blood sugar diagnostic (OneTouch #50 ea 12/02/20 01/19/22 Rx Ultra Blue Test Strip) lancets 33 gauge (Narciso Soica #100 ea 12/02/20 01/19/22 Rx Lancets) empagliflozin 25 mg tablet 25 mg QAM 02/17/22 02/17/22 History (Jardiance) Past Med/Surg History Medical History DEMARIO (acute kidney injury) "doesn't remember having one" Anxiety Atrial fibrillation with rapid ventricular response pt unaware of details> reports no pacer > no cardio Bipolar disorder Chronic back pain COPD (chronic obstructive pulmonary disease) no inhalers per pt > feels is controlled Depression Diabetes mellitus, type 2 GERD (gastroesophageal reflux disease) Hyperlipidemia Hypertension Illiterate Noncompliance with medication regimen " I take it if i think of it" Meds in blister pack from [facility] [phone] Poor historian pt lives alone; pt states he can not read or write but can sign own consents Transient ischemic attack (TIA) per record Surgical History History of cardiac cath 2011, no stents "hasn't been to a heart dr in awhile and i don't remember their name" History of colonoscopy History of left cataract extraction History of open reduction and internal fixation (ORIF) procedure right ankle--hardware in place History of tooth extraction all teeth Family History Other Family history unknown Social History Smoking Status: Heavy tobacco smoker Tobacco Type: Cigarettes Cigarettes Per Day: 1-1 1/2pks per day; Second Hand Exposure: No; Hx Alcohol Use: No Hx Substance Use: No Preferred Language: Yakut Communication Ability: Effective Legal Entity Controller Required: No Beliefs That Will Affect Care: None marital status: Single Current Living Situation: Alone Current Living Situation Comment: apartment Feels Safe at Home: Yes Assistive Devices: Denture - Upper and Denture - Lower Review of Systems Review of Systems: All systems reviewed & are unremarkable except as noted in Subjective Physical Exam Physical Exam: General: Lying comfortably in bed, not in distress, on room air HEENT: PERRL, MMM Chest: Clear breath sounds bilaterally, no wheezes or crackles CVS: Regular rate and rhythm, normal heart sounds, no murmur Abdomen: Soft, non tender, not distended, normal bowel sounds Neuro: Awake, alert, oriented, conversing well, non focal. Strength 5/5 in all extremities. Sensation grossly intact. Extremities: No edema Skin: Left knee abrasion from fall. Right allen wounds from prior falls. Results & Data Results & Data ([facility]) Vital Signs (Past 12 Hours) Vital Signs Temp Pulse Pulse Resp BP BP Pulse Ox 02/17/22 14:00 54 L 18 158/86 H 99 02/17/22 12:06 97 02/17/22 11:25 36.7 C 62 18 161/81 H 98 O2 Del Method 02/17/22 14:00 Room Air 02/17/22 12:06 Room Air 02/17/22 11:25 Room Air Laboratory Results Short CBC 02/17/22 Range/Units 11:30 WBC 6.90 (4.8-10.8) K/ul Hgb 13.9 L (14.0-18.0) g/dl Hct 40.5 (40.1-51.0) % Plt Count 414 H (130-400) K/uL BMP 02/17/22 11:30 Sodium 136 Potassium 4.1 Chloride 106 Carbon Dioxide 23 BUN 24 H Creatinine 1.44 H Glucose 210 H Calcium 8.9 Liver Function 02/17/22 Range/Units 11:30 Total Bilirubin 0.5 (0.2-1.0) mg/dl AST 14 (13-39) U/L ALT 14 (7-52) U/L Alkaline Phosphatase 264 H (34-104) U/L Albumin 4.0 (3.4-5.0) gm/dl Urine 02/17/22 Range/Units 11:30 Urine Color Yellow Urine Appearance Clear (Clear) Urine pH 6.5 (4.5-7.5) Ur Specific Mccleary 1.017 (1.000-1.030) Urine Protein Negative (Negative) Urine Glucose (UA) 3+ H (Negative) Diagnostic Findings Cervical Spine CT 02/17/22 12:[address] DOSE: 2000.47 mGy.cm HISTORY: fall TECHNIQUE: Multiaxial CT images of the cervical spine were performed and reformatted in the sagittal and coronal plane without the use of contrast. A dose lowering technique was utilized adhering to the principles of ALARA. COMPARISON: Cervical spine CT 11/28/2020. FINDINGS: No fractures. No subluxation. Prevertebral soft tissues and the C1-C2 interval are intact. No pneumothorax. IMPRESSION: No fractures within the cervical spine. ACT 112: Negative or not required by law. Electronically signed by: Terry Saini M.D. 02/17/2022 12:46 PM Chest X-Ray 02/17/22 12:06 XR chest 1V portable HISTORY: weakness COMPARISON: Chest 03/20/2021. FINDINGS: The cardiac silhouette remains mildly enlarged. Calcifications again noted within the aortic knob. There is mild interstitial thickening which is likely chronic. No new focal lung consolidations to suggest pneumonia. No evidence for pulmonary edema. A punctate calcified granuloma within the periphery of the right upper lobe, unchanged. IMPRESSION: No significant change compared to the prior study. No acute process. ACT 112: Negative or not required by law. Electronically signed by: Terry Saini M.D. 02/17/2022 12:[address] 02/17/22 12:[address] DOSE: HISTORY: fall TECHNIQUE: Multiaxial CT images of the head were performed without the use of intravenous contrast. Automated exposure control was utilized for this study. A dose lowering technique was utilized adhering to the principles of ALARA. Comparison: Head CT 03/20/2021. Findings: Mild mucosal thickening within the right maxillary sinus. The mastoid air cells are clear. The calvarium and skull base are intact. There is no mass, hematoma, midline shift, acute infarct. White matter hypodensity is nonspecific but suggestive of microvascular ischemic change. The ventricles and sulci demonstrate mild age-related involutional changes. There are old punctate periventricular infarcts noted. Impression: No acute intracranial abnormality. ACT 112: Negative or not required by law. Electronically signed by: Terry Saini M.D. 02/17/2022 12:[address] 02/17/22 12:[address] DOSE: HISTORY: numbness in legs TECHNIQUE: Multiaxial CT images of the lumbar spine were performed and reformatted in the sagittal and coronal plane without the use of contrast. A dose lowering technique was utilized adhering to the principles of ALARA. COMPARISON: None. FINDINGS: No fracture or subluxation within the lumbar spine. Mild disc space narrowing at L4-5 and L5-S1. There are mild to moderate facet degenerative changes within the lower lumbar spine. Moderate to severe central canal narrowing at L4-5 due to broad-based posterior disc bulge and ligamentum flavum and facet hypertrophy. Paraspinal soft tissues are unremarkable. Calcified plaque within the normal caliber abdominal aorta. IMPRESSION: 1. No fracture or subluxation within the lumbar spine. 2. Degenerative changes as described above most pronounced at the L4-5 level which demonstrates moderate to severe central canal narrowing. ACT 112: Negative or not required by law. Electronically signed by: Terry Saini M.D. 02/17/2022 12:52 PM Code Status & VTE Plan VTE Prophylaxis Plan VTE Prophylaxis will be ordered: Yes
[2022-02-17 14:42] LABS: Estimated Average Glucose 166 mg/dl; Hemoglobin A1C 7.4 % (4.5-5.6)
[2022-02-17] MEDS: SODIUM CHLORIDE 0.9% 500 ML IV SCH (17:33)
[2022-02-17] MEDS: INSULIN ASPART PER UNIT SC SCH ×2 (17:33→22:04)
[2022-02-17] MEDS: LANTUS PER UNIT CHARGE SQ SCH (22:04)
[2022-02-17] MEDS: HEPARIN SOD 5,000 UNIT/0.5 ML VIAL SQ SCH (22:05)
[2022-02-17] MEDS: ATORVASTATIN 40 MG TAB PO SCH (22:05)
[2022-02-17] MEDS: amLODIPine BESYLATE 5 MG TAB PO SCH (22:05)
[2022-02-17] MEDS: CYANOCOBALAMIN 1000 MCG/ML VIAL IM SCH (22:07)
[2022-02-17] MEDS: PRAZOSIN HCL 1 MG CAP PO SCH (22:12)
[2022-02-18] MEDS: SODIUM CHLORIDE 0.9% 500 ML IV SCH ×4 (05:00→15:15)
[2022-02-18 06:27] LABS: Hematocrit (blood only) 43.8 % (40.1-51.0); Hemoglobin 14.7 g/dl (14.0-18.0); Mean Corpuscular Hgb Conc 33.6 g/dL (32.0-36.0); Mean Corpuscular Volume 95.4 fL (80.0-100.0); Mean Platelet Volume 10.1 fL (9.4-12.4); Platelet Count 402 K/uL (130-400); RDW Coefficient of Variation 13.9 % (11.5-14.5); RDW Standard Deviation 48.9 fL (36.4-46.3); Red Blood Count 4.59 M/uL (4.63-6.08); White Blood Count 6.98 K/ul (4.8-10.8)
[2022-02-18 06:55] LABS: Anion Gap 8 (3-11); BUN Creatinine Ratio 16.2 (10-20); Blood Urea Nitrogen 18 mg/dl (6-23); Calcium 9.1 mg/dl (8.5-10.1); Carbon Dioxide 23 mmol/L (21-32); Chloride 106 mmol/L (98-107); Creatinine Clr Calc Pharmacy 66.3 ml/min; Est GFR (African American) 80.3 ml/min; Est GFR (Non-African American) 69.3 ml/min; Glucose 171 mg/dl (70-99(Fasting)); Sodium 137 mmol/L (136-145)
[2022-02-18] MEDS: buPROPion XL 300 MG TABCR PO SCH (08:38)
[2022-02-18] MEDS: PANTOprazole 40 MG TAB PO SCH (08:39)
[2022-02-18] MEDS: CYANOCOBALAMIN 1000 MCG/ML VIAL IM SCH (08:39)
[2022-02-18] MEDS: ASPIRIN 81 MG ECTAB PO SCH (08:39)
[2022-02-18] MEDS: HEPARIN SOD 5,000 UNIT/0.5 ML VIAL SQ SCH ×2 (08:40→21:41)
[2022-02-18] MEDS: METOPROLOL SUCC 50MG EXT REL TAB PO SCH (08:49)
[2022-02-18] MEDS: INSULIN ASPART PER UNIT SC SCH ×4 (08:51→21:29)
--- NOTE | 2022-02-18 09:08 | Electrocardiogram Report ---
Test Reason : Blood Pressure : / mmHG Vent. Rate : 059 BPM Atrial Rate : 059 BPM P-R Int : 176 ms QRS Dur : 082 ms QT Int : 404 ms P-R-T Axes : 015 -03 138 degrees QTc Int : 399 ms Sinus bradycardia Left ventricular hypertrophy with repolarization abnormality Abnormal ECG When compared with ECG of 20-MAR-2021 22:26, No significant change was found Confirmed by Rock Lazcano ([id number]) on 02/18/2022 9:07:52 AM Referred By: REFERRED SELF Confirmed By:Rock Lazcano
[2022-02-18] MEDS: ACETAMINOPHEN 500 MG TAB PO PRN ×2 (09:27→16:12)
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
[2022-02-18] MEDS ORDERED: LORazepam 0.5 MG in SYRINGE 0.25 ML IV ONE (14:15)
[2022-02-18] MEDS ORDERED: LORazepam 0.5 MG TAB PO STA (21:30)
[2022-02-18] MEDS: PRAZOSIN HCL 1 MG CAP PO SCH (21:41)
[2022-02-18] MEDS: ATORVASTATIN 40 MG TAB PO SCH (21:42)
[2022-02-18] MEDS: amLODIPine BESYLATE 5 MG TAB PO SCH (21:42)
[2022-02-18] MEDS: LANTUS PER UNIT CHARGE SQ SCH (21:43)
[2022-02-18] MEDS ORDERED: GADOBUTROL 65ML VIAL IV ONE (23:36)
[2022-02-19] MEDS: METOPROLOL SUCC 50MG EXT REL TAB PO SCH (08:35)
[2022-02-19] MEDS: buPROPion XL 300 MG TABCR PO SCH (08:35)
[2022-02-19] MEDS: ASPIRIN 81 MG ECTAB PO SCH (08:35)
[2022-02-19] MEDS: HEPARIN SOD 5,000 UNIT/0.5 ML VIAL SQ SCH (08:36)
[2022-02-19] MEDS: PANTOprazole 40 MG TAB PO SCH (08:37)
[2022-02-19] MEDS: CYANOCOBALAMIN 1000 MCG/ML VIAL IM SCH (08:37)
[2022-02-19] MEDS: INSULIN ASPART PER UNIT SC SCH (08:38)
--- NOTE | 2022-02-19 10:06 | Orthopedic Consultation ---
Date of Consultation February 19, 2022 Assessment & Plan (1) Spinal stenosis at L4-L5 level: MRI lumbar spine does demonstrate evidence of spinal stenosis most impressive at L4-L5 with neuroforaminal disease and evidence of anterior listhesis. This clearly could contribute to component of his leg numbness however on exam he was quite functional. He may also have advanced form of peripheral neuropathy secondary to his multiple medical issues. Regarding his presentation today would not recommend any surgical intervention but rather maximize his medical management and have him work with physical therapy. History of Present Illness Reason for Consultation: Bilateral leg numbness Attending Physician: Cristopher Ayala MD History of Present Illness This is a 66-year-old male presents with numbness and instability in his ankles. He describes this as been progressive over the past several weeks. He states is unpredictable. But often when he is standing and walking. He states stairs are quite limiting to him. He has not had any lumbar epidural injections or any therapy. He does have multiple medical issues that could contribute to his presentation. Allergies Allergy/AdvReac Type Severity Reaction Status Date / Time levofloxacin [From Levaquin] Allergy Mild Rash Verified 01/30/22 10:38 Home Medications Medication Instructions Recorded Confirmed Type atorvastatin 40 mg tablet (Lipitor) 80 mg PO HS 10/09/18 01/19/22 History diclofenac sodium 75 mg 75 mg PO BID 10/09/18 01/19/22 History tablet,delayed release metformin 1,000 mg tablet 1,000 mg PO BIDWMEAL 10/09/18 01/19/22 History pantoprazole 40 mg tablet,delayed 40 mg PO QAM 10/09/18 01/19/22 History release (Protonix) prazosin 1 mg capsule 1 mg PO HS 10/09/18 01/19/22 History aspirin 81 mg tablet,delayed 81 mg PO QAM 04/11/20 01/19/22 History release (Kali Low Dose Aspirin) bupropion HCl 300 mg 24 hr tablet, 300 mg PO QAM 04/11/20 01/19/22 History extended release metoprolol succinate 50 mg 50 mg PO QAM 04/11/20 01/19/22 History tablet,extended release 24 hr ugrdyilh-nnm-lsmiw acid 0.4 1 tab PO QAM 07/05/20 01/19/22 History mg-lycopene 300 mcg-lutein 250 mcg tablet (CertaVite Senior) amlodipine 10 mg tablet 5 mg PO HS 08/09/20 01/19/22 History blood sugar diagnostic (okay.comTouch #50 ea 12/02/20 01/19/22 Rx Ultra Blue Test Strip) lancets 33 gauge (OneTouch Delica #100 ea 12/02/20 01/19/22 Rx Lancets) empagliflozin 25 mg tablet 25 mg QAM 02/17/22 02/17/22 History (Jardiance) Patient History Medical History DEMARIO (acute kidney injury) "doesn't remember having one" Anxiety Atrial fibrillation with rapid ventricular response pt unaware of details> reports no pacer > no cardio Bipolar disorder Chronic back pain COPD (chronic obstructive pulmonary disease) no inhalers per pt > feels is controlled Depression Diabetes mellitus, type 2 GERD (gastroesophageal reflux disease) Hyperlipidemia Hypertension Illiterate Noncompliance with medication regimen " I take it if i think of it" Meds in blister pack from [facility] [phone] Poor historian pt lives alone; pt states he can not read or write but can sign own consents Transient ischemic attack (TIA) per record Surgical History History of cardiac cath 2011, no stents "hasn't been to a heart dr in awhile and i don't remember their name" History of colonoscopy History of left cataract extraction History of open reduction and internal fixation (ORIF) procedure right ankle--hardware in place History of tooth extraction all teeth Family History Other Family history unknown Social History Smoking Status: Unknown if ever smoked Tobacco Type: Cigarettes Cigarettes Per Day: 1-1 1/2pks per day; Second Hand Exposure: No; Hx Alcohol Use: No Hx Substance Use: No Preferred Language: Bangladeshi Communication Ability: Effective Barrel Drainer Required: No Beliefs That Will Affect Care: None marital status: Single Current Living Situation: Alone Current Living Situation Comment: apartment Other Information That Helps Us Care for You: No Feels Safe at Home: Yes Safety Concerns: Feels Safe At This Time Assistive Devices: None Physical Exam Physical Exam: Patient is cooperative. He sitting at the bedside when I walked in the room. I did have him stand and ambulate about the room. He was able to do so without difficulty. He can stand on his toes and heels without difficulty. He has no pain to palpation lumbar musculature or abnormal skin markings. Results & Data ([facility]) Vital Signs (Past 12 Hours) Vital Signs Temp Pulse Pulse Resp BP BP Pulse Ox 02/19/22 09:59 99 H 02/19/22 07:41 36.5 C 70 20 160/73 H 99 02/19/22 02:55 36.2 C L 97 H 18 164/81 H 99 02/19/22 01:50 68 02/18/22 23:36 36.7 C 63 18 148/76 H 98 O2 Del Method 02/19/22 09:59 02/19/22 07:41 Room Air 02/19/22 02:55 Room Air 02/19/22 01:50 02/18/22 23:36 Room Air
--- NOTE | 2022-02-19 13:10 | Hospitalist Progress Note ---
Date of Service February 19, 2022 Assessment & Plan (1) Fall: Plan: Presented with a near fall No significant injury Could be secondary to bilateral leg numbness and dizziness as was mentioned in H&P (2) Bilateral leg numbness: Plan: Presented with bilateral leg numbness below the waist Reported only numbness involving the right foot to my colleague and denies any numbness below the waist as before denies any pain Denies any more dizziness and has had physical therapy without any problem Apparent CT scan of the lumbar spine showed severe central canal narrowing Does not have any bladder or bowel problem MRI obtained to evaluate and exclude any severe nerve compression -official read from radiology is pending, however Dr. Mendoza, the surgeon reviewed MRI himself [facility] consulted MRI lumbar spine does demonstrate evidence of spinal stenosis most impressive at L4-L5 with neuroforaminal disease and evidence of anterior listhesis. This clearly could contribute to component of his leg numbness however on exam he was quite functional. He may also have advanced form of peripheral neuropathy secondary to his multiple medical issues. Regarding his presentation today would not recommend any surgical intervention but rather maximize his medical management and have him work with physical therapy. Imaging studies: CT lumbar spine 02/17/22 1. No fracture or subluxation within the lumbar spine. 2. Degenerative changes as described above most pronounced at the L4-5 level which demonstrates moderate to severe central canal narrowing. Prior MRI L spine 12/2016 1. Degenerative disc disease with annular bulging at L5-S1 with associated facet hypertrophy resulting in nejt-hy-rdbggnri left-sided and mild right-sided foraminal narrowing. 2. No disc herniation observed within the lumbar spine. No central canal stenosis identified. Vitamin B12 low, patient received IM vitamin B12 while inpatient. Recommend B12 supplement as outpatient Discharged on B12 and thiamine supplements Recommend PT OT, prescription for PT eval and treatment provided on discharge Outpatient follow-up recommended (3) DM2 (diabetes mellitus, type 2): Plan: Hemoglobin A1c 7.4 DM-2, controlled- OP POC A1c 7.4. Holding home empagliflozin and metformin. lantus, SSI while inpt follow up as outpt (4) Bipolar disorder: Plan: Bipolar disorder- on welbutrin. His med list shows seroquel but his pill box at bedside doesnot contain seroquel and he states he does not take any other medications other than the one in the pillbox. Not having any acute depression and or psychosis follow up as outpt Has had history of traumatic experiences a child Patient prefers to be seen by a female provider (5) GERD (gastroesophageal reflux disease): Plan: Essential HTN- continue amlodipine, toprol, prazosin (6) CKD (chronic kidney disease) stage 3, GFR 30-59 ml/min: Plan: CKD3a- Cr mildly elevated from baseline, on admission 1.4 repeat Cr on 02/18 down to 1.1 Received gentle IVF on admission cont. to monitor as outpt. Plan DVT ppx- sc heparin Dispo- plan to DC home Admission and Anticipated Discharge Date Admission Date: February 17, 2022 Subjective Patient seen in follow-up after fall, lower extremity numbness/tingling CT of lumbar spine shows stenosis. MRI obtained overnight. Seen by orthospine, no surgery at this time Currently patient is lying in bed, in no acute distress Denies any fevers or chills Denies chest pain shortness of breath, abdominal pain, nausea vomiting He is ambulating He would like to be discharged as he needs to take care of his dogs at home Review of Systems Review of Systems: All systems reviewed & are unremarkable except as noted in Subjective Physical Exam Physical Exam: Physical Exam: Sitting at the edg e of the bed witho ut any acute distr ess Constitutional:L well developed, we ll nourished and + chronically ill a ppearing BEyes: PERRL, EOMI, conju nctivae normal, an icteric sclerae ENMT: external ear and n ose normal, oropha rynx normal Neck: supple Respiratory: no respiratory dis tress Auscultatio n: lungs clear to auscultation bilat erally Cardiovascular:L Rate/Rhythm: regul ar rate and regula r rhythm; not tach ycardic Heart Clau nds: normal S1 and normal S2; no mur mur Extremities: no edema Gastrointestinal ( Abdomen): Inspection/Auscult ation: normal cody l sounds; abdomen not distended Per cussion/Palpation: abdomen soft; abd omen nontender Musculoskeletal: moves extremities Neurologic: Alert, awake and o riented x3. No fa cial asymmetry, mo ves extremities Results & Data Results & Data ([facility]) Vital Signs (Past 12 Hours) Vital Signs Temp Pulse Pulse Resp BP BP Pulse Ox 02/19/22 12:10 36.5 C 70 20 160/73 H 164/81 H 99 02/19/22 09:59 99 H 02/19/22 07:41 36.5 C 70 20 160/73 H 99 02/19/22 02:55 36.2 C L 97 H 18 164/81 H 99 02/19/22 01:50 68 O2 Del Method 02/19/22 12:10 02/19/22 09:59 02/19/22 07:41 Room Air 02/19/22 02:55 Room Air 02/19/22 01:50
--- NOTE | 2022-02-19 13:13 | Discharge Summary ---
Date of Service February 19, 2022 Admission HPI Per Admitting Provider 66 year old male with h/o DM-2, bipolar disorder, HTN, GERD who presented to the ED with fall with bilateral leg numbness. States it started 2 weeks ago with bilateral leg numbness from waist down and he had few falls since then, the last one being today. States he feels like having a staggering or drunken gait although he does not drink. Denies any syncopal episodes. Denies any weakness or pin and needle sensation. Denies any bowel bladder incontinence or perineal paresthesia. Denies any trauma preceding this. Denies any back pain. States his leg numbness has been the same since it started, denies any exacerbating or relieving factors. Denies any fever or chills. Smokes 1.5 pack a day. Does not drink alcohol. He used to see pain management for epidural back injections but have not followed them in a while. He is not a great historian. In the ED, he was afebrile and hemodynamically stable. Lying comfortably in bed, not in distress. Labs and imaging reviewed. I saw and examined the patient at bedside. Admission Exam Per Admitting Provider General: Lying comfortably in bed, not in distress, on room air HEENT: PERRL, MMM Chest: Clear breath sounds bilaterally, no wheezes or crackles CVS: Regular rate and rhythm, normal heart sounds, no murmur Abdomen: Soft, non tender, not distended, normal bowel sounds Neuro: Awake, alert, oriented, conversing well, non focal. Strength 5/5 in all extremities. Sensation grossly intact. Extremities: No edema Skin: Left knee abrasion from fall. Right allen wounds from prior falls. Principal Diagnosis Fall, intermittent lower extremity numbness/neuropathy Lumbar stenosis Discharge Exam Physical Exam: Sitting at the edge of the bed without any acute distress Constitutional: well developed, well nourished and + chronically ill appearing Eyes: PERRL, EOMI, conjunctivae normal, anicteric sclerae ENMT: external ear and nose normal, oropharynx normal Neck: supple Respiratory: no respiratory distress Auscultation: lungs clear to auscultation bilaterally Cardiovascular: Rate/Rhythm: regular rate and regular rhythm; not tachycardic Heart Sounds: normal S1 and normal S2; no murmur Extremities: no edema Gastrointestinal (Abdomen): Inspection/Auscultation: normal bowel sounds; abdomen not distended Percussion/Palpation: abdomen soft; abdomen nontender Musculoskeletal: moves extremities Neurologic: Alert, awake and oriented x3. No facial asymmetry, moves extremities Discharge Data Allergies Allergy/AdvReac Type Severity Reaction Status Date / Time levofloxacin [From Levaquin] Allergy Mild Rash Verified 01/30/22 10:38 Consultations 02/17/22 14:02 ED Decision to Admit Stat 02/19/22 07:41 Consult Orthopedic Surgery Routine Ordered Studies 02/17/22 12:06 CT cervical spine wo con Stat FINDINGS: No fractures. No subluxation. Prevertebral soft tissues and the C1-C2 interval are intact. No pneumothorax. IMPRESSION: No fractures within the cervical spine. CT head/brain wo con Stat Findings: Mild mucosal thickening within the right maxillary sinus. The mastoid air cells are clear. The calvarium and skull base are intact. There is no mass, hematoma, midline shift, acute infarct. White matter hypodensity is nonspecific but suggestive of microvascular ischemic change. The ventricles and sulci demonstrate mild age-related involutional changes. There are old punctate periventricular infarcts noted. Impression: No acute intracranial abnormality. CT lumbar spine wo con Stat FINDINGS: No fracture or subluxation within the lumbar spine. Mild disc space narrowing at L4-5 and L5-S1. There are mild to moderate facet degenerative changes within the lower lumbar spine. Moderate to severe central canal narrowing at L4-5 due to broad-based posterior disc bulge and ligamentum flavum and facet hypertrophy. Paraspinal soft tissues are unremarkable. Calcified plaque within the normal caliber abdominal aorta. IMPRESSION: 1. No fracture or subluxation within the lumbar spine. 2. Degenerative changes as described above most pronounced at the L4-5 level which demonstrates moderate to severe central canal narrowing. 02/18/22 09:50 MRI Lumbar Spine [MR lumbar spine wo/w con] Routine FINDINGS: The alignment is anatomical. Disks are normal in height and signal. L1-L2: Mild posterior disc bulge is seen without significant stenosis. L2-L3: No significant abnormality. L3-L4: No significant abnormality. L4-L5: Moderate posterior disc bulge and facet arthropathy results in mild canal stenosis and mild bilateral neuroforaminal stenosis. L5-S1: No significant abnormality. The spinal ligaments are intact, without evidence of disruption or abnormal signal intensity. The spinal cord is normal in signal intensity and there is no evidence of cord contusion. There is no evidence of an extradural, intradural, extramedullary or intramedullary lesion. Visualized soft tissues are normal. IMPRESSION: Mild degenerative changes as above with up to mild canal and bilateral neural foraminal stenosis. Hospital Course (1) Fall: Presented with a near fall No significant injury Could be secondary to bilateral leg numbness and dizziness as was mentioned in H&P (2) Bilateral leg numbness: Presented with bilateral leg numbness below the waist Reported only numbness involving the right foot to my colleague and denies any numbness below the waist as before denies any pain Denies any more dizziness and has had physical therapy without any problem Apparent CT scan of the lumbar spine showed severe central canal narrowing Does not have any bladder or bowel problem MRI obtained to evaluate and exclude any severe nerve compression -official read from radiology is pending, however Dr. Mendoza, the surgeon reviewed MRI himself [facility] consulted MRI lumbar spine does demonstrate evidence of spinal stenosis most impressive at L4-L5 with neuroforaminal disease and evidence of anterior listhesis. This clearly could contribute to component of his leg numbness however on exam he was quite functional. He may also have advanced form of peripheral neuropathy secondary to his multiple medical issues. Regarding his presentation today would not recommend any surgical intervention but rather maximize his medical management and have him work with physical therapy. Imaging studies: CT lumbar spine 02/17/22 1. No fracture or subluxation within the lumbar spine. 2. Degenerative changes as described above most pronounced at the L4-5 level which demonstrates moderate to severe central canal narrowing. Prior MRI L spine 12/2016 1. Degenerative disc disease with annular bulging at L5-S1 with associated facet hypertrophy resulting in salc-wy-uivsjplr left-sided and mild right-sided foraminal narrowing. 2. No disc herniation observed within the lumbar spine. No central canal stenosis identified. Vitamin B12 low, patient received IM vitamin B12 while inpatient. Recommend B12 supplement as outpatient Discharged on B12 and thiamine supplements Recommend PT OT, prescription for PT eval and treatment provided on discharge Outpatient follow-up recommended (3) DM2 (diabetes mellitus, type 2): Hemoglobin A1c 7.4 DM-2, controlled- OP POC A1c 7.4. Holding home empagliflozin and metformin. lantus, SSI while inpt follow up as outpt (4) Bipolar disorder: Bipolar disorder- on welbutrin. His med list shows seroquel but his pill box at bedside doesnot contain seroquel and he states he does not take any other medications other than the one in the pillbox. Not having any acute depression and or psychosis follow up as outpt Has had history of traumatic experiences a child Patient prefers to be seen by a female provider (5) GERD (gastroesophageal reflux disease): Essential HTN- continue amlodipine, toprol, prazosin (6) CKD (chronic kidney disease) stage 3, GFR 30-59 ml/min: CKD3a- Cr mildly elevated from baseline, on admission 1.4 repeat Cr on 02/18 down to 1.1 Received gentle IVF on admission cont. to monitor as outpt. Plan DVT ppx- sc heparin Dispo- plan to DC home Total Time Total Time Spent Total Time Spent (In Minutes): 40 Discharge Plan Discharge Items Patient Disposition: Home - Self-Care Reason For Visit: FALL, DIZZINESS, LEG NUMBNESS Discharge Diagnosis: Fall, intermittent lower extremity numbness/neuropathy Lumbar stenosis Activity: Per Instructions section Non-emergency contact: Primary Care Provider Call non-emergency contact if: you have any medication questions and your symptoms worsen Follow-up/Referrals: Katie Davis PA-C [Primary Care Provider] - (Date & Time 02/26/2022 11:20 AM Provider Claritza Johnson Department [facility] ) Diet: Carb Consistent or DM2 Addtl Attending Provider Instructions: Follow-up with your primary care doctor, the appointment was scheduled for you for February 26. Take vitamin B-12, and thiamine as prescribed. It is also important that you control your diabetes. Prescription for physical therapy - evaluation and treatment provided to you. You may need further evaluation by neurology, if without improvement. Pending Studies at Discharge: No Stand-Alone Forms: My [facility] Probiodrug, Smoking Cessation Medications and DC Order Prescriptions: New cyanocobalamin (vitamin B-12) 1,000 mcg capsule 1,000 mcg PO DAILY Qty: 30 0RF thiamine HCl (vitamin B1) 100 mg tablet 100 mg PO DAILY Qty: 30 0RF Continued atorvastatin [Lipitor] 40 mg Tablet 80 mg PO HS prazosin 1 mg Capsule 1 mg PO HS pantoprazole [Protonix] 40 mg Tablet,Delayed Release (Dr/Ec) 40 mg PO QAM metformin 1,000 mg Tablet 1,000 mg PO BIDWMEAL diclofenac sodium 75 mg Tablet,Delayed Release (Dr/Ec) 75 mg PO BID bupropion HCl 300 mg tablet extended release 24 hr 300 mg PO QAM metoprolol succinate 50 mg tablet extended release 24 hr 50 mg PO QAM aspirin [Kali Low Dose Aspirin] 81 mg Tablet,Delayed Release (Dr/Ec) 81 mg PO QAM CertaVite Senior 0.4-300-250 mg-mcg-mcg Tablet 1 tab PO QAM amlodipine 10 mg tablet 5 mg PO HS (DME) OneTouch Ultra Blue Test Strip Strip See Rx Instructions .ROUTE .MEDSUPPLY Qty: 50 2RF Rx Instructions: As directed (DME) lancets [OneTouch Delica Lancets] 33 gauge misc See Rx Instructions .ROUTE .MEDSUPPLY Qty: 100 0RF Rx Instructions: As directed Jardiance 25 mg tablet 25 mg QAM Discharge Orders: Discharge Order (Routine); Ordered 02/19/22 Ordered By: Cristopher Ordaz/Other Patient Handouts: Managing Type 2 Diabetes, Healthy Meals for Diabetes Admission Data Admit Date/Time: 02/17/22 13:59 Attending Provider: Cristopher Ayala Admit Provider: Gurwinder Gilmore Primary Care Provider: Katie Davis Other Providers: Corie Puga ; Bruce Mendoza Other Interventions: Discharge Summary Assessment (RN) Last Done: 02/19/22 12:10
--- NOTE | 2022-02-19 13:15 | Magnetic Resonance Report ---
MR lumbar spine wo/w con CLINICAL HISTORY: R/O Nerve compression, Stenosis TECHNIQUE: 3 plane localizer images, sagittal T2, sagittal T1, sagittal STIR, axial T1, axial T2 moises g with postcontrast axial T1 and sagittal T1 fat-saturated sequences were obtained of the lumbar spin e, before and after intravenous administration of 12 mL of MultiHance. Comparison: Comparison is made to CT lumbar spine 02/17/2022 FINDINGS: The alignment is anatomical. Disks are normal in height and signal. L1-L2: Mild posterior disc bulge is seen without significant stenosis. L2-L3: No significant abnormality. L3-L4: No significant abnormality. L4-L5: Moderate posterior disc bulge and facet arthropathy results in mild canal stenosis and mild bi lateral neuroforaminal stenosis. L5-S1: No significant abnormality. The spinal ligaments are intact, without evidence of disruption or abnormal signal intensity. The spi nal cord is normal in signal intensity and there is no evidence of cord contusion. There is no eviden ce of an extradural, intradural, extramedullary or intramedullary lesion. Visualized soft tissues are normal. IMPRESSION: Mild degenerative changes as above with up to mild canal and bilateral neural foraminal stenosis. ACT 112: Negative or not required by law. Electronically signed by: Ag Dean M.D. 02/19/2022 1:13 PM
== END 2022-02-19 12:38 | disposition home or self-care (01) ==
LOC: ED 11:18 → 2W 11:18 → SUATTDRO 13:59 → 2W 15:24 → 2N 02-18 04:32
DX: W19.XXXA Unspecified fall, initial encounter; E11.22 Type 2 diabetes mellitus with diabetic chronic kidney disease; R42 Dizziness and giddiness; N18.30 Chronic kidney disease, stage 3 unspecified; R20.0 Anesthesia of skin; F17.210 Nicotine dependence, cigarettes, uncomplicated; Z79.899 Other long term (current) drug therapy; Z88.1 Allergy status to other antibiotic agents; Z79.84 Long term (current) use of oral hypoglycemic drugs; Z79.82 Long term (current) use of aspirin; K21.9 Gastro-esophageal reflux disease without esophagitis